=== PATIENT | male | born 1955 | race Caucasian/White ===

== ENCOUNTER → 2023-01-24 08:24 | Outpatient (CLI) | payer MEDICARE, SELFPAY ==
--- NOTE | 2023-01-24 | CA_ITS ---
APPROVED REPORT Exam: Exercise Treadmill Technologist: Kiana Linder, Ht: 5 ft 10 in Wt: 199 lbs BSA: 2.08 m2 HR: 52 bpm BP: 163/92 mmHg Rhythm: NSR Medical History Medications: Levothyroxine,,,,, Aspirin,,,,, Losartan,,,,, Allopurinol,,,,, GOUT MED,,,,, Stress Test Details Test: Manuel HR Resting HR: 56 bpm Max Heart Rate (APMHR): 155 bpm Max HR Achieved: 152 bpm Target HR (85% APMHR): 132 bpm % of APMHR: 98 Recovery HR: 93 bpm HR response to stress: Normal HR response to stress BP Resting BP: 154.0/85.0 mmHg Max BP: 188.0/74.0 mmHg Recovery BP: 156.0/69.0 mmHg BP response to stress: Normal blood pressure response to stress. ECG Resting ECG: Normal sinus rhythm Stress EC-[address] depression Arrhythmia: PAC, PVC Recovery ECG: Persistent ST depression at 5 minutes of recovery. Recovery Arrhythmia: PVC Clinical Exercise duration: 10:09 min Highest Stage Achieved: IV Exercise capacity: 12.8 METs Overall Exercise Capacity for Age: Average Stress ECG Conclusion Patient was able to exercise for a total of 10 minutes, 9 seconds. He achieved a total of 12.8 METS. He has an average exercise capacity compared to age and sex matched peers. He has a normal HR and BP response to exercise. Max HR: 152 % of PM: 98% Max BP: 188/74 METs: 12.8 Test stopped due to: Dyspnea Symptoms: Dyspnea Arrhythmias/Ectopy: PAC's, PVC's. ST-T Changes: 2-[address] depression. Conclusion: Average exercise capacity. ECG stress test consistent with ischemia. Myoview images are reported separately. Test Summary REST . . . . . . . Sitting REST . . . . . . . Standing REST 03:00 0.0 0.0 56 . 154/ 85 . . Stage 1 01:00 10.0 1.7 79 . . . . Stage 1 02:00 10.0 1.7 82 . 138/ 80 . . Stage 1 03:00 10.0 1.7 86 . 138/ 80 . . Stage 2 01:00 12.0 2.5 91 . . . . Stage 2 02:00 12.0 2.5 108 . 150/ 78 . . Stage 2 03:00 12.0 2.5 100 . 150/ 78 . . Stage 3 01:00 14.0 3.4 110 . . . . Stage 3 02:00 14.0 3.4 122 . 180/ 90 . . Stage 3 03:00 14.0 3.4 128 . 180/ 90 . . Stage 4 . . . . . . . Myoview Injected Stage 4 01:00 16.0 4.2 146 . . . . Stage 4 01:09 16.0 4.2 145 . . . Stop exercise at 10:09 RECOVERY 01:00 0.0 0.0 133 . . . . RECOVERY 02:00 0.0 0.0 119 . . . . RECOVERY 03:00 0.0 0.0 105 . 188/ 74 . . RECOVERY 04:00 0.0 0.0 98 . 188/ 74 . . RECOVERY 05:00 0.0 0.0 97 . 169/ 74 . . RECOVERY 05:44 0.0 0.0 96 . 156/ 69 . . Electronically signed by : Myrna Sorensen, 01/24/2023 19:13:58
--- NOTE | 2023-01-24 08:31 | NM_ITS ---
APPROVED REPORT Exam: Nuclear Stress Test Indication: CAD, 1 STENT, HTN, HYPERLIPIDEMIA, FM HX, C.P. Patient Location: Outpatient Stress Tech: Kiana Ramirez OR Tech:NICKOLAS Delgado RT (R)(N)(M) Ht: 5 ft 10 in Wt: 199 lbs HR: 83 bpm BP: 140/88 mmHg BSA: 2.08 m2 TID: 0.87 BMI: 28.5 History: CAD, 1 STENT, HTN, HYPERLIPIDEMIA, FM HX, C.P. PT DID COMPLAIN OF CHEST TIGHTNESS Procedure: Patient exercised on Manuel protocol 10:42 minutes and sec, resting heart rate 83 bpm, resting blood pressure 140/88 mmHg, with exercise maximum heart rate achived was 149 bpm which is 105 % of the maximum predicted heart rate and blood pressure was 198/90 mmHg. Test was stopped due to FATIGUE. Patient has Average exercise capacity, achieved 12.8 METs of workload on treadmill, the blood pressure response to exercise was normal. Cardiac Stress and Resting SPECT Images: Cardiac Stress and Resting SPECT images were obtained using technetium 99m Myoview 30.9 mCi stress and 9.16 mCi at rest. This is a technically difficult study due to body habitus and soft tissue overlying the cardiac borders. This may affect the diagnostic interpretation of the study findings. Resting and stress imaging in both supine and prone positions demonstrate a medium sized, moderate, fixed perfusion defect in the basal to mid inferior LV wall. There is also a small sized, moderate, fixed perfusion defect in the basal anterior LV wall. Gated imaging demonstrates normal global LV systolic function. There is mild hypokinesis of the inferior LV wall. LVEF is calculated at 57%. Conclusion: This is a technically difficult study due to body habitus and soft tissue overlying the cardiac borders. This may affect the diagnostic interpretation of the study findings. Medium sized, moderate, fixed perfusion defect in the basal to mid inferior LV wall. There is also a small sized, moderate, fixed perfusion defect in the basal anterior LV wall. No definite evidence of reversible ischemia. Gated imaging demonstrates normal global LV systolic function. There is mild hypokinesis of the inferior LV wall. LVEF is calculated at 57%. Electronically signed by : Myrna Sorensen, 01/24/2023 19:18:10
== END ==
LOC: RAD 08:25
PROVIDERS: PCP Family Medicine; Visit Provider Family Medicine
DX: R07.9 Chest pain, unspecified (principal); I25.10 Atherosclerotic heart disease of native coronary artery without angina pectoris
CPT/HCPCS: 78452; 93017; A9502

== ENCOUNTER 2023-02-15 07:12 | Outpatient (CLI) | payer MEDICARE, OTHER, SELFPAY ==
[2023-02-15 07:34] VITALS: BP 133/74; PULSE 56; RESP 17; TEMP 36.4; O2SAT 100; BMI 28.5
[2023-02-15 07:59] LABS: Blood Urea Nitrogen 15 mg/dl (9-20); Calcium 9.5 mg/dl (8.4-10.2); Carbon Dioxide 33 mmol/L (22.0-30.0); Chloride 100 mmol/L (98-107); Creatinine Clearance Estimated 85 mL/min (50-200); Estimated Glomerular Filt Rate 67 ml/min (>60); GFR (African American) 81 ML/MIN (>60); Glucose 104 mg/dl (74-100); Sodium 141 mmol/L (136-145)
[2023-02-15 08:18] VITALS: BP 119/70; PULSE 57; RESP 17; O2SAT 98
[2023-02-15 08:28] VITALS: BP 104/60; PULSE 53; RESP 17; O2SAT 97
[2023-02-15 08:32] VITALS: BP 115/64; PULSE 55; RESP 16; O2SAT 100
--- NOTE | 2023-02-15 09:15 | PC.NURSE ---
pt HR noted to drop to 36-[address] process. pt asymptomatic.
== END 2023-02-15 08:38 | disposition home or self-care (01) ==
LOC: RAD 07:13
PROVIDERS: PCP Family Medicine; Visit Provider Nurse Practitioner
DX: I10 Essential (primary) hypertension (principal); I45.2 Bifascicular block; R94.31 Abnormal electrocardiogram [ECG] [EKG]; R94.39 Abnormal result of other cardiovascular function study; Z87.891 Personal history of nicotine dependence; I20.8 Other forms of angina pectoris
CPT/HCPCS: 75574; 80048; Q9967

== ENCOUNTER → 2023-02-27 14:58 | Outpatient (CLI) | payer MEDICARE, OTHER, SELFPAY ==
--- NOTE | 2023-02-27 15:01 | CA_ITS ---
APPROVED REPORT EXAM: Comprehensive 2D, Doppler, and color-flow Echocardiogram Press Breaker: Jessica Fry RVT Ht: 5 ft 10 in Wt: 198lbs BSA: 2.08 BP: 116/67 mmHg Indications: ABN STRESS TEST,CAD,BRADYCARDIA,HTN,CP,EX SMOKER 2D Dimensions LVOT 2.22 cm (M/F) 1.5-2.5 LA Volume 36.20 mL LA Volume Index 17.40 mL/m2 (M/F) 16-34 M-Mode Dimensions RVDd 3.21 cm (0.9-2.6) LA Diam 3.46 cm (1.9-4.0) LVDd 4.79 cm (3.5-5.7) Ao Diam 3.22 cm (2.0-3.7) LVDs 3.27 cm (3.5-5.7) IVSd 0.68 cm (0.6-1.1) PWd 0.51 cm (0.6-1.1) EF (Teich) 59.60% FS 31.70% EDV (Teich) 107.00 mL ESV (Teich) 43.20 mL LV Diastology E Decel Time 257.00 (160-240 msec) E/A Ratio 0.9 MED E' 8.60 (< 7 cm/sec) E'/MED E' Ratio 6.52 (>14) LAT E' 8.90 (<10 cm/sec) E/LAT E' Ratio 6.30 (>14) Aortic Valve AO Peak GR. 2.70 mmHg Mitral Valve MV E Max Jag. 56.00 (40-130 cm/s) MV A Velocity 63.00 (40-130 cm/s) E/A Ratio 0.88 MV Decel. Time 257.00 (160-240 ms) MV PHT 75.00 ms Pulmonary Valve PV Peak Velocity 57.00 (50-150 cm/s) Tricuspid Valve TR P. Velocity 271.00 cm/s RAP Estimate 10.00 mmHg RVSP 39.50 mmHg Left Ventricle The left ventricle is normal size. The left ventricular systolic function is normal. The left ventricular ejection fraction is within the normal range. There is normal left ventricular wall thickness. There is mild hypokinesis of the inferior and inferolateral LV tijerina. The left ventricular diastolic function is normal. LVEF is 55% Right Ventricle The right ventricle is mildly to moderately dilated. The right ventricular systolic function is normal. Atria The left atrium size is normal. The right atrium size is normal. There is no Doppler evidence of interatrial shunt. Aortic Valve The aortic valve is normal in structure. There is no aortic valvular stenosis. Trace aortic regurgitation. Mitral Valve The mitral valve is normal in structure. No evidence of mitral valve stenosis. Trace mitral regurgitation. Tricuspid Valve The tricuspid valve leaflets are thin and pliable. Mild tricuspid regurgitation. RVSP is 20-25 mmHg. Pulmonic Valve The pulmonary valve is normal in structure. Trace pulmonic regurgitation. Great Vessels The aortic root is normal in size. The ascending aorta is normal in size. IVC is normal in size and collapses >50% with inspiration. Pericardium There is no pericardial effusion. Other Information Study Quality: Fair Conclusion Normal biventricular systolic function. Hypokinesis of the inferior and inferolateral LV tijerina. Mild to moderate RV dilation. Mild TR. Electronically signed by : Myrna Sorensen, 03/02/2023 22:32:08
== END ==
PROVIDERS: PCP Family Medicine; Visit Provider Nurse Practitioner
DX: I10 Essential (primary) hypertension (principal); I45.2 Bifascicular block; R94.31 Abnormal electrocardiogram [ECG] [EKG]; R94.39 Abnormal result of other cardiovascular function study; Z87.891 Personal history of nicotine dependence; I20.8 Other forms of angina pectoris
CPT/HCPCS: 93306

== ENCOUNTER 2023-03-13 09:02 | Day surgery (SDC) | payer MEDICARE, OTHER, SELFPAY ==
[2023-03-13] VITALS (15 sets, daily range): BP systolic 89–136; BP diastolic 51–78; PULSE 48–72; RESP 16–20; O2SAT 91–100; BMI 27.6
--- NOTE | 2023-03-13 07:24 | IR_ITS ---
APPROVED REPORT Patient Location: Outpatient PROCEDURES Selective coronary angiogram Drug-eluting stent deployment to the proximal and mid LAD Drug-eluting stent deployment to the proximal mid and distal right coronary artery in a contiguous manner INDICATION Coronary artery disease, Informed consent was obtained prior to the procedure. COMPLICATIONS NONE Estimated Blood Loss: LESS THAN 10 ML TECHNIQUE One percent lidocaine used to anesthetize the right anterior aspect of the wrist. The right radial artery was accessed via the Seldinger technique. A 6 [place] sheath was placed in the right radial artery. 2.5 mg of Verapamil, 800 mcg of nitroglycerin, 1mg Lidocaine and 5000 U Heparin were given through the arterial sheath. The papa catheter was also used to perform selective coronary angiography. At the end of the diagnostic angiogram therapeutic heparin was administered giving a therapeutic ACT and the guide catheter was placed in left main artery followed by Choice PT extra-support wire down the LAD. A 2.5 x 20 mm noncompliant balloon was deployed at 20 sruthi to predilate. Following this a 3 mm x 38 mm [place] frontier stent was deployed at 20 sruthi reducing the stenosis. A 3.5 x 12 mm noncompliant balloon was deployed at 20 and 24 sruthi up and down the LAD stent to post dilate. CINDY-3 flow was present before and after the procedure. At the end the procedure excellent angiograph results were obtained therefore the apparatus was removed and the sheath was used intubate the right coronary artery followed by the same wire placed distally in the right coronary. Predilatation was made using a 3 mm x 20 mm noncompliant balloon. This was deployed up and down the right coronary artery. Two 3 mm x 38 mm [place] frontier stent were placed in the proximal mid and distal segment in a contiguous manner at 20 and 24 sruthi. An additional 3 mm x 15 mm [place] frontier stent was placed distally to the second right coronary artery stent yet still overlapping it and deployed at 18 sruthi. The balloon was brought back and deployed at 24 sruthi up and on the stent to mesh all the stents in the right coronary artery in a contiguous manner. CINDY-3 flow was present before and after the procedure. Within the procedure the apparatus was removed the sheath was removed and hemostasis was achieved using TR banding patient was transferred to the postop putting in stable condition ANGIOGRAPHIC RESULTS The left main artery Normal The left anterior descending artery Has proximal and ostial eccentric 30% stenosis followed by an eccentric 50% stenosis between the first septal easement worker and first diagonal artery. The mid LAD then has calcified 80% stenoses followed by an additional mid vessel eccentric 40% stenosis. The circumflex artery Nondominant gives rise to a moderate-sized first obtuse marginal artery which has proximal and mid vessel calcified 40% stenoses The right coronary artery Is a dominant vessel and has a proximal calcified 70 to 80% stenosis with an additional proximal 80% stenosis in the mid vessel calcified concentric 90% stenosis followed by a distal eccentric 70% stenosis The BENDER ventriculogram reveals Not performed The left ventricular end-diastolic pressure Not measured IMPRESSION Severe to critical two-vessel coronary disease Successful stenting the proximal to mid LAD severe to critical disease reduced to 0% with 1 contiguous drug-eluting stent Successful stenting of the proximal mid and distal dominant right coronary severe to critical disease reduced to 0% with 3 contiguous drug-eluting stents PLAN 1. Plavix plus aspirin 2. LDL less than 55 but she with high intensity statin 3. Avoidance of tobacco product 4. Risk factor modification 5. Cardiac rehabilitation Electronically sig
[2023-03-13 09:32] LABS: Basophils % 0.6 % (0.1-2.0); Chloride 102 mmol/L (98-107); Eosinophils # 0.4 K/mm3 (0.0-0.4); Hematocrit 47.6 % (42.0-52.0); Hemoglobin 15.7 g/dL (14.1-18.0); Lymphocytes # 2.5 K/mm3 (0.7-4.5); Mean Corpuscular HGB Conc 33.1 g/dL (31.8-35.4); Mean Corpuscular Hemoglobin 30.6 pg (27.0-31.2); Mean Corpuscular Volume 92.7 fl (80-94); Mean Platelet Volume 10.2 fl (7.4-10.4); Monocytes # 0.7 K/mm3 (0.1-1.0); Neutrophils # 4.1 K/mm3 (1.8-7.8); Neutrophils % 53.4 % (37.0-80.0); Platelet Count 165 K/mm3 (142-424); Red Blood Count 5.14 M/mm3 (4.60-6.20); Red Cell Distribution Width 12.5 % (11.5-17.5); Sodium 141 mmol/L (136-145); White Blood Count 7.7 K/mm3 (4.8-10.8)
[2023-03-13 09:33] LABS: Potassium 3.9 mmoL/L (3.5-5.1)
[2023-03-13 09:35] LABS: Anion Gap 10.9 mEq/L (5-15); Blood Urea Nitrogen 16 mg/dl (9-20); Carbon Dioxide 32 mmol/L (22.0-30.0); Creatinine Clearance Estimated 91 mL/min (50-200); Estimated Glomerular Filt Rate 75 ml/min (>60); GFR (African American) 91 ML/MIN (>60)
[2023-03-13 09:36] LABS: Calcium 8.8 mg/dl (8.4-10.2); Glucose 107 mg/dl (74-100)
[2023-03-13 11:49] LABS: CATHL Activated Clotting Time 315 SEC (74-125)
--- NOTE | 2023-03-13 14:53 | P.CONPHA_ITS ---
PHA Instructional Material Director Discharge Med Double Head Machine Operator: Devang Marie has received discharge medication counseling on the following medications: ATORVASTATIN 80 MG HS ASPIRIN 81 MG DAILY LOSARTAN-HCTZ 50 MG/12.5 MG DAILY EFFIENT 10 MG DAILY MD NOT DOING BETA HOMERO AT THIS TIME DUE TO HEART RATE.
== END 2023-03-13 14:44 | disposition home or self-care (01) ==
PROVIDERS: PCP Family Medicine; Visit Provider Internal Medicine
DX: I10 Essential (primary) hypertension (principal); I25.118 Atherosclerotic heart disease of native coronary artery with other forms of angina pectoris; R93.1 Abnormal findings on diagnostic imaging of heart and coronary circulation; R94.31 Abnormal electrocardiogram [ECG] [EKG]; R94.39 Abnormal result of other cardiovascular function study; I45.2 Bifascicular block; Z87.891 Personal history of nicotine dependence; Z79.899 Other long term (current) drug therapy
CPT/HCPCS: 80048; 85025; 85347; 92928; 93454; 99152; 99153; C1725; C1769; C1874; C1876; C9600; J1644; Q9967

== ENCOUNTER → 2023-06-06 07:28 | Outpatient (CLI) | payer MEDICARE, OTHER, SELFPAY ==
--- NOTE | 2023-06-06 07:35 | XR_ITS ---
FINAL REPORT CLINICAL HISTORY: Foot Pain in heel x 1 month COMPARISON: None FINDINGS: LEFT FOOT Three views of the left foot demonstrate no acute fracture or dislocation. The visualized joint spaces are normally aligned. There is moderate hypertrophic change of osteoarthritis involving the first metatarsal phalangeal joint. A minimal plantar calcaneal spur is present. The soft tissues are unremarkable. IMPRESSION: Moderate changes of osteoarthritis in the first MTP joint. Minimal plantar calcaneal spur is present. Reviewed, Interpreted and Dictated by Jesse Sales MD Transcribed by Cathy Salinas Authenticated and . [facility]
--- NOTE | 2023-06-06 07:35 | XR_ITS ---
FINAL REPORT CLINICAL HISTORY: Foot Pain in heel x 1 month COMPARISON: None FINDINGS: RIGHT FOOT 3 views of the right foot were obtained. There is no acute fracture or dislocation. Visualized joint spaces are normally aligned. There is moderate hypertrophic change of osteoarthritis involving the first MTP joint. Minimal plantar calcaneal spurring is present. Soft tissues are unremarkable. IMPRESSION: Moderate hypertrophic change of osteoarthritis involving the first MTP joint. Minimal plantar calcaneal spurring is present. Reviewed, Interpreted and Dictated by Jesse Sales MD Transcribed by Cathy Salinas Authenticated and [facility]
== END ==
LOC: RAD 07:30
PROVIDERS: PCP Family Medicine; Visit Provider Podiatrist
DX: M79.672 Pain in left foot (principal); M79.671 Pain in right foot
CPT/HCPCS: 73630

== ENCOUNTER → 2023-06-06 09:43 | Outpatient (CLI) | payer MEDICARE, OTHER, SELFPAY ==
[2023-06-06 10:14] LABS: Basophils # 0.1 K/mm3 (0-0.2); Basophils % 0.6 % (0.1-2.0); Eosinophils # 0.4 K/mm3 (0.0-0.4); Eosinophils % 4.9 % (0.1-12.0); Hematocrit 44.8 % (42.0-52.0); Hemoglobin 15.4 g/dL (14.1-18.0); Lymphocytes # 3.1 K/mm3 (0.7-4.5); Lymphocytes % 41.7 % (10-50); Mean Corpuscular HGB Conc 34.4 g/dL (31.8-35.4); Mean Corpuscular Hemoglobin 32.1 pg (27.0-31.2); Mean Corpuscular Volume 93.4 fl (80-94); Mean Platelet Volume 8.9 fl (7.4-10.4); Monocytes # 0.4 K/mm3 (0.1-1.0); Monocytes % 4.8 % (1.7-9.3); Neutrophils # 3.5 K/mm3 (1.8-7.8); Platelet Count 182 K/mm3 (142-424); Red Cell Distribution Width 13.2 % (11.5-17.5); White Blood Count 7.3 K/mm3 (4.8-10.8)
[2023-06-06 10:37] LABS: Chloride 102 mmol/L (98-107)
[2023-06-06 10:38] LABS: Potassium 4.4 mmoL/L (3.5-5.1); Sodium 140 mmol/L (136-145)
[2023-06-06 10:39] LABS: Erythrocyte Sedimentation Rate 5 mm/hr (0-20)
[2023-06-06 10:40] LABS: Alanine Aminotransferase 45 U/L (12-78); Albumin Level 5.1 g/dl (3.5-5.0); Albumin/Globulin Ratio 1.6 (1.1-1.8); Alkaline Phosphatase 61 U/L (38-126); Anion Gap 12.4 mEq/L (5-15); Aspartate Amino Transferase 57 U/L (17-59); Blood Urea Nitrogen 14 mg/dl (9-20); Carbon Dioxide 30 mmol/L (22.0-30.0); Estimated Glomerular Filt Rate 75 ml/min (>60); GFR (African American) 91 ML/MIN (>60); Globulin 3.2 g/dL (1.3-3.2); Glucose 101 mg/dl (74-100); Total Protein,Serum 8.3 g/dl (6.3-8.2)
[2023-06-06 10:41] LABS: Calcium 9.4 mg/dl (8.4-10.2)
[2023-06-06 10:46] LABS: C-Reactive Protein 0.3 mg/L (0-4)
[2023-06-06 11:00] LABS: Uric Acid 4.9 mg/dl (3.5-8.5)
[2023-06-07 13:09] LABS: RA Latex Turbid. <10.0 IU/mL (<14.0)
[2023-06-13 09:24] LABS: Antinuclear Antibodies, IFA POSITIVE
== END ==
PROVIDERS: PCP Family Medicine; Visit Provider Podiatrist
DX: M79.671 Pain in right foot (principal); M79.672 Pain in left foot; R93.1 Abnormal findings on diagnostic imaging of heart and coronary circulation
CPT/HCPCS: 36415; 73630; 80053; 84550; 85025; 85651; 86038; 86140; 86431

== ENCOUNTER 2023-06-19 15:44 | Emergency (ER) | payer MEDICARE, OTHER, SELFPAY ==
[2023-06-19 16:30] VITALS: BP 145/73; PULSE 78; RESP 20; TEMP 37.8; O2SAT 97; BMI 28.7
[2023-06-19 16:56] VITALS: BP 145/73; PULSE 78; RESP 20; TEMP 37.8; O2SAT 97
--- NOTE | 2023-06-19 17:03 | EXP.UTC ---
Discharge Plan Disposition Patient Disposition: Home, Self-Care Condition: Good Prescriptions Prescriptions: New methylprednisolone [Medrol (Zackery)] 4 mg tablets,dose pack See Rx Instructions .Route .COMPLEX 6 Days Qty: 21 0RF Rx Instructions: taper pack; guaifenesin [Mucinex] 600 mg tablet extended release 12hr 1,200 mg PO BID PRN (Reason: cough) Qty: 20 0RF azithromycin [Zithromax Z-Zackery] 250 mg tablet See Rx Instructions .ROUTE .COMPLEX 5 Days Qty: 6 0RF Rx Instructions: For 250 mg dose pack: take 500 mg today (day 1), then 250 mg for 4 days (days 2-5) promethazine-DM 6.25-15 mg/5 mL syrup 5 ml PO Q6H PRN (Reason: cough) Qty: 118 0RF No Action probenecid-colchicine 500-0.5 mg tablet 1 tab PO DAILY allopurinol 100 mg tablet 100 mg PO DAILY levothyroxine 150 mcg tablet 150 mcg PO DAILY atorvastatin 80 mg tablet 80 mg PO DAILY Qty: 90 3RF prasugrel [Effient] 10 mg tablet 10 mg PO DAILY Qty: 90 3RF losartan-hydrochlorothiazide 50-12.5 mg tablet 1 tab PO DAILY Qty: 90 3RF amlodipine 5 mg tablet 5 mg PO DAILY Qty: 90 3RF aspirin 81 mg tablet,delayed release (DR/EC) 81 mg PO DAILY Qty: 90 3RF meloxicam 7.5 mg tablet 7.5 mg PO ONCE Qty: 30 2RF methylprednisolone [Medrol (Zackery)] 4 mg tablets,dose pack 4 mg PO DAILY Qty: 21 0RF diclofenac sodium [Voltaren Arthritis Pain] 1 % gel 4 g topical QID PRN (Reason: pain) Qty: 100 2RF Rx Instructions: apply to single knee, ankle, foot; for foot includes sole/toes/top of foot Referrals Follow up/Referrals: Elvin Rasmussen MD [Primary Care Provider] - See instructions Activity Restrictions/Add. Instructions Additional Instructions/Restrictions: Start antibiotic today. Be sure to complete entire prescription even if feeling better Monitor temp. Tylenol every 4 hours as needed and / or ibuprofen every 6 hours as needed ( As long as your primary care physician has told you that it ok to take both. For fever/aches/pains ER if no less than 101 despite Tylenol or Motrin Humidifier/vaporizer or hot steamy shower Mucinex during the day for your cough and cough suppressant only at night. Be sure to drink lots of water. Insurance may not cover a prescriptions for mucinex. Might be cheaper to get 400mg tablets and take 2 tablet in the morning, mid-day and evening with lots of water. *Promethazine DM cough syrup will cause drowsiness. Use only at night. No driving, operating machinery or caring for small children after taking it *Start steroid today. Helps with inflammation therefore, cough and wheezing. Follow directions on the package. Reviewed side effects. Patient reports taking them before. Follow up IMMEDIATELY for new or worsening of symptoms OR no noticeable improvement over the next 48-72 hours. 911 immediately for any life threatening symptoms such as chest pain or difficulty breathing Clinical Impressions Clinical Impression: Bronchitis Sinusitis Qualifiers: Sinusitis location: unspecified location Chronicity: unspecified Qualified Code(s): J32.9 - Chronic sinusitis, unspecified Instructions Patient Instructions: DI for Sinusitis, Acute Bronchitis Discharge ED Provider: Georgette Soni [facility] General Stated complaint: cough, SOA, congestion Mode of Arrival: Ambulatory Source of Information: Patient Limitations: No Limitations Time Seen by Provider: 06/19/23 17:03 Description of Symptoms (Recalled from Triage Doc. by RN): PATIENT C/O COUGH, HEADACHE, CHEST CONGESTION, SOA AND CHILLS X 1 WEEK HEENT Symptoms (Recalled from RN notes): Yes Resp Symptoms (Recalled from RN notes): Yes Skin Symptoms (Recalled from RN notes): No MS Symptoms (Recalled from RN notes): No Functional Status (Recalled from RN notes): WNL History of Present Illness Provider Complaint: Patient states that he has been sick for over a week States that he has been having cough, chest congestion, cough and at times coughing so much it makes him feel SOA, chills and sinus congestion/pressure States that today he was still not feeling any better States that he is not coughing anything up or anything just doesnt feel well Related Data Home Medications Medication Instructions Recorded Confirmed allopurinol 100 mg tablet 100 mg PO DAILY gout 02/02/23 06/06/23 levothyroxine 150 mcg tablet 150 mcg PO DAILY thyroid 02/02/23 06/06/23 probenecid 500 mg-colchicine 0.5 1 tab PO DAILY . 02/02/23 06/06/23 mg tablet Previous Rx's Medication Instructions Recorded amlodipine 5 mg tablet 5 mg PO DAILY . #90 tabs 03/20/23 aspirin 81 mg tablet,delayed 81 mg PO DAILY Blood Thinner #90 03/20/23 release tabs atorvastatin 80 mg tablet 80 mg PO DAILY . #90 tabs 03/20/23 losartan 50 mg-hydrochlorothiazide 1 tab PO DAILY blood pressure #90 03/20/23 12.5 mg tablet tabs prasugrel 10 mg tablet (Effient) 10 mg PO DAILY #90 tabs 03/20/23 diclofenac sodium 1 % topical gel 4 g topical QID PRN pain #100 grams 06/06/23 (Voltaren Arthritis Pain) meloxicam 7.5 mg tablet 7.5 mg PO ONCE pain #30 tabs 06/06/23 methylprednisolone 4 mg tablets in 4 mg PO DAILY #21 tabs 06/06/23 a dose pack (Medrol (Zackery)) azithromycin 250 mg tablet See Rx Instructions PO .COMPLEX 5 06/19/23 (Zithromax Z-Zackery) days #6 tabs guaifenesin 600 mg tablet, 1,200 mg PO BID PRN cough #20 tabs 06/19/23 extended release 12 hr (Mucinex) methylprednisolone 4 mg tablets in See Rx Instructions .Route 06/19/23 a dose pack (Medrol (Zackery)) .COMPLEX 6 days #21 tabs promethazine-DM 6.25 mg-15 mg/5 mL 5 ml PO Q6H PRN cough #118 mL 06/19/23 oral syrup Allergies Allergy/AdvReac Type Severity Reaction Status Date / Time No Known Allergies Allergy Verified 06/06/23 08:19 Worker's Comp Is this a Worker's Comp case?: No [facility] Disclaimer: The information contained in this section may have been updated after the patient was seen, as this information can be updated by other users. Medical History Abnormal computed tomography angiography of heart Hypertension Surgical History History of cardiac cath Family History Other Family history of acute congestive heart failure Family history of acute heart failure Social History Smoking Status: Never smoker alcohol intake: current substance use type: denies use current occupational status: employed Travel in the last 8 weeks: Inside the [place] ROS Obtained: Yes All systems reviewed & no additional complaints except as documented and Yes Systems reviewed as appropriate & no additional complaints except as documented Constitutional Constitutional: Reports system reviewed and no additional complaints, except as documented, Reports as per HPI, Reports body ache, Reports chills and Reports fever(s) ENT Ears, Nose, Mouth, and Throat: Reports system reviewed and no additional complaints, except as documented, Reports as per HPI, Reports nasal congestion and Reports sinus pressure Cardiovascular Cardiovascular: Reports system reviewed and no additional complaints, except as documented and Reports as per HPI Respiratory Respiratory: Reports system reviewed and no additional complaints, except as documented, Reports as per HPI, Reports shortness of breath (at times after coughing), Reports chest congestion and Reports cough Gastrointestinal Gastrointestingal: Reports system reviewed and no additional complaints, except as documented and as per HPI Musculoskeletal Musculoskeletal: Reports system reviewed and no additional complaints, except as documented and Reports as per HPI Physical Exam General General appearance: alert and in no apparent distress ENT ENT exam: Present mucous membranes moist Expanded ENT Exam Nose exam: Present sinus tenderness Throat exam: Present other (Pharyngeal erythema noted with PND) Respiratory Respiratory exam: Present normal lung sounds bilaterally; Absent respiratory distress or wheezes Cardiovascular Cardiovascular exam: Present regular rate, normal rhythm and normal heart sounds Abdominal Exam Abdominal exam: Present soft and normal bowel sounds; Absent distention or tenderness Neurological Exam Neurological exam: Present alert, oriented X3 and normal gait Medical Decision Making Jesus Inquiry Pt receiving controlled substance: No Jesus was queried for this patient: No Vital Signs: 06/19/23 16:30 06/19/23 16:56 Temperature 100.0 F H 100.0 F H Temperature Source Oral Pulse Rate 78 Pulse Rate [Left Brachial] 78 Respiratory Rate 20 20 Blood Pressure 145/73 H Blood Pressure [Left Arm] 145/73 H Blood Pressure Mean [Left Arm] 97 Blood Pressure Source [Left Arm] Automatic Cuff Blood Pressure Position [Left Arm] Sitting 02 Sat by Pulse Oximetry 97 Oxygen Delivery Method Room Air Lab Data Lab results reviewed: Yes I reviewed the patient's lab results.
[2023-06-19 17:04] LABS: UTC Influenza A Antigen Negative (Negative); UTC Influenza B Antigen Negative (Negative)
== END 2023-06-19 17:27 | disposition home or self-care (01) ==
PROVIDERS: Emergency Provider Nurse Practitioner; PCP Family Medicine
DX: J20.9 Acute bronchitis, unspecified (principal); J01.90 Acute sinusitis, unspecified; R06.02 Shortness of breath; R51.9 Headache, unspecified; R05.9 Cough, unspecified; R09.89 Other specified symptoms and signs involving the circulatory and respiratory systems; R50.9 Fever, unspecified; I10 Essential (primary) hypertension
CPT/HCPCS: 87804; 99204; 99212; G0463

== ENCOUNTER 2023-07-03 09:08 | Outpatient (CLI) | payer MEDICARE, OTHER, SELFPAY ==
[2023-07-03 09:22] LABS: Microscopic, Urine URINE MICROSCOPIC (MICROSCOPIC)
[2023-07-03 09:46] LABS: Basophils # 0.1 K/mm3 (0-0.2); Basophils % 0.7 % (0.1-2.0); Eosinophils # 0.2 K/mm3 (0.0-0.4); Eosinophils % 1.8 % (0.1-12.0); Hematocrit 48.6 % (42.0-52.0); Hemoglobin 16.5 g/dL (14.1-18.0); Lymphocytes # 3.3 K/mm3 (0.7-4.5); Mean Corpuscular HGB Conc 33.9 g/dL (31.8-35.4); Mean Corpuscular Hemoglobin 32.2 pg (27.0-31.2); Mean Corpuscular Volume 95.2 fl (80-94); Mean Platelet Volume 9.4 fl (7.4-10.4); Monocytes # 0.4 K/mm3 (0.1-1.0); Monocytes % 4.1 % (1.7-9.3); Neutrophils # 5.7 K/mm3 (1.8-7.8); Neutrophils % 59.5 % (37.0-80.0); Platelet Count 184 K/mm3 (142-424); Red Cell Distribution Width 13.5 % (11.5-17.5); White Blood Count 9.6 K/mm3 (4.8-10.8)
[2023-07-03 10:21] LABS: Alanine Aminotransferase 42 U/L (12-78); Albumin Level 4.5 g/dl (3.5-5.0); Albumin/Globulin Ratio 1.5 (1.1-1.8); Alkaline Phosphatase 68 U/L (38-126); Anion Gap 9.8 mEq/L (5-15); Aspartate Amino Transferase 42 U/L (17-59); Bilirubin,Total 1.3 mg/dl (0.2-1.3); Blood Urea Nitrogen 13 mg/dl (9-20); Calcium 8.9 mg/dl (8.4-10.2); Carbon Dioxide 31 mmol/L (22.0-30.0); Chloride 103 mmol/L (98-107); Estimated Glomerular Filt Rate 75 ml/min (>60); GFR (African American) 91 ML/MIN (>60); Glucose 92 mg/dl (74-100); Potassium 3.8 mmoL/L (3.5-5.1); Sodium 140 mmol/L (136-145); Total Protein,Serum 7.5 g/dl (6.3-8.2)
[2023-07-03 10:26] LABS: Erythrocyte Sedimentation Rate 12 mm/hr (0-20)
[2023-07-03 11:00] LABS: Appearance,Urine CLEAR (Clear); Bilirubin,Urine Negative (Negative); Blood, Urine Negative (Negative); Color,Urine YELLOW (Yellow); Glucose,Urine (UA) Negative (Negative); Ketones,Urine Negative (Negative); Leukocyte Esterase,Urine Negative (Negative); Nitrate,Urine Negative (Negative); PH,Urine 6.5 (5.0-8.5); Protein,Urine Negative (Negative); Specific Gravity, Urine 1.015 (1.005-1.030); Urobilinogen,Urine 0.2 EU/dl (0.2)
[2023-07-03 11:21] LABS: Squamous Epithelial Cell,Urine Occasional #/hpf (0-5); WBC,Urine Occasional #/hpf (0-3)
[2023-07-04 08:11] LABS: HBsAg Screen Negative (Negative); HCV Ab Non Reactive (Non Reactive); Hep A Ab, IGM Negative (Negative); Hep B Core Ab, IgM Negative (Negative)
[2023-07-04 08:14] LABS: Complement C3 126 mg/dL (82-167)
[2023-07-04 13:50] LABS: Anti-Centromere B Antibodies <0.2 AI (0.0-0.9); Anti-DNA (DS) Ab Qn 1 IU/mL (0-9); Anti-Jo-1 <0.2 AI (0.0-0.9); Anti-Smith Antibody <0.2 AI (0.0-0.9); Antichromatin Antibodies 0.2 AI (0.0-0.9); Antiscleroderma-70 Antibodies <0.2 AI (0.0-0.9); RNP Antibodies 0.2 AI (0.0-0.9); Sjogren's Anti-SS-A <0.2 AI (0.0-0.9); Sjogren's Anti-SS-B <0.2 AI (0.0-0.9)
[2023-07-04 20:54] LABS: dsDNA AB Crithidia Negative (Negative)
[2023-07-10 15:09] LABS: HLA-B27 Negative (.)
[2023-07-13 20:18] LABS: RF, IgA by EIA (RDL) < 7 U (<7); RF, IgG by EIA (RDL) < 7 U (<7); RF, IgM by EIA (RDL) < 7 U (<7)
== END 2023-07-03 23:59 ==
LOC: LAB 09:10
PROVIDERS: PCP Family Medicine; Visit Provider Internal Medicine Rheumatology
DX: M19.041 Primary osteoarthritis, right hand (principal); M10.9 Gout, unspecified; I25.10 Atherosclerotic heart disease of native coronary artery without angina pectoris; E89.0 Postprocedural hypothyroidism; E78.5 Hyperlipidemia, unspecified
CPT/HCPCS: 36415; 80053; 80074; 81001; 84550; 85025; 85651; 86161; 86225; 86235; 86431; 86812

== ENCOUNTER 2024-04-16 08:02 | Observation (INO) | payer MEDICARE, OTHER, SELFPAY ==
[2024-04-16] VITALS (26 sets, daily range): BP systolic 76–134; BP diastolic 42–73; PULSE 61–106; RESP 16–29; TEMP 36.3–37.1; O2SAT 91–100; BMI 39.2; BMI 28.7
--- NOTE | 2024-04-16 08:22 | ED_ITS ---
Discharge Plan Disposition Patient Disposition: Still a Patient Condition: Fair Prescriptions Prescriptions: No Action probenecid-colchicine 500-0.5 mg tablet 1 tab PO DAILY allopurinol 100 mg tablet 100 mg PO DAILY levothyroxine 150 mcg tablet 150 mcg PO DAILY aspirin 81 mg tablet,delayed release (DR/EC) 81 mg PO DAILY Qty: 90 3RF meloxicam 7.5 mg tablet See Rx Instructions .ROUTE .COMPLEX Qty: 30 3RF Dose Instruction: TAKE ONE TABLET BY MOUTH ONCE A DAY FOR PAIN Rx Instructions: TAKE ONE TABLET BY MOUTH ONCE A DAY FOR PAIN atorvastatin 80 mg tablet See Rx Instructions .ROUTE .COMPLEX Qty: 90 3RF Dose Instruction: TAKE ONE TABLET BY MOUTH ONCE A DAY Rx Instructions: TAKE ONE TABLET BY MOUTH ONCE A DAY amlodipine 5 mg tablet 5 mg PO DAILY Qty: 90 1RF losartan-hydrochlorothiazide 50-12.5 mg tablet 1 tab PO DAILY Qty: 90 3RF prasugrel [Effient] 10 mg tablet 10 mg PO DAILY Qty: 90 1RF guaifenesin [Mucinex] 600 mg tablet extended release 12hr 1,200 mg PO BID PRN (Reason: cough) Qty: 20 0RF Referrals Follow up/Referrals: Elvin Rasmussen MD [Primary Care Provider] - See instructions Print Language Print Language: Swedish Discharge ED Provider: Clyde Barbosa [facility] HPI General Stated complaint: abd pain Time Seen by Provider: 04/16/24 08:10 History of Present Illness Provider Complaint: He states that since last night he has had dark diarrhea stools and black vomit. He has had abdominal pain also. Related Data Home Medications ?Medication ?Instructions ?Recorded ?Confirmed allopurinol 100 mg tablet 100 mg PO DAILY gout 02/02/23 03/19/24 levothyroxine 150 mcg tablet 150 mcg PO DAILY thyroid 02/02/23 03/19/24 probenecid 500 mg-colchicine 0.5 1 tab PO DAILY . 02/02/23 03/19/24 mg tablet Previous Rx's ?Medication ?Instructions ?Recorded aspirin 81 mg tablet,delayed 81 mg PO DAILY Blood Thinner #90 03/20/23 release tabs guaifenesin 600 mg tablet, 1,200 mg (2 x 600 mg) PO BID PRN 06/19/23 extended release 12 hr (Mucinex) cough #20 tabs meloxicam 7.5 mg tablet See Rx Instructions .Route 12/19/23 .COMPLEX #30 tabs atorvastatin 80 mg tablet See Rx Instructions .Route 02/20/24 .COMPLEX #90 tabs amlodipine 5 mg tablet 5 mg PO DAILY . #90 tabs 02/27/24 losartan 50 mg-hydrochlorothiazide 1 tab PO DAILY blood pressure #90 03/14/24 12.5 mg tablet tabs prasugrel 10 mg tablet (Effient) 10 mg PO DAILY #90 tabs 04/15/24 Allergies Allergy/AdvReac Type Severity Reaction Status Date / Time No Known Allergies Allergy Verified 03/19/24 08:33 [facility] Disclaimer: The information contained in this section may have been updated after the patient was seen, as this information can be updated by other users. Medical History (Updated 03/19/24 @ 08:59 by Haley Sesay APRN) Ex-smoker History of gout Plantar fasciitis, bilateral Bifascicular block Coronary artery disease Hyperlipidemia Abnormal computed tomography angiography of heart Hypertension Surgical History History of cardiac cath Family History Other Family history of acute congestive heart failure Family history of acute heart failure Social History Smoking Status: Never smoker alcohol intake: current alcohol intake frequency: 3 or more drinks per day substance use type: denies use current occupational status: employed Travel in the last 8 weeks: Inside the [place] ROS Obtained: Yes All systems reviewed & no additional complaints except as documented Constitutional Constitutional: Denies chills and Denies fever(s) Eyes Eyes: Denies eye discharge ENT Ears, Nose, Mouth, and Throat: Denies dizziness, Denies otalgia and Denies sore throat Cardiovascular Cardiovascular: Denies chest pain Respiratory Respiratory: Denies shortness of breath, Denies chest congestion, Denies cough, Denies stridor and Denies wheezing Gastrointestinal Gastrointestingal: Reports as per HPI, abdominal pain, diarrhea, melena, nausea and vomiting Musculoskeletal Musculoskeletal: Reports system reviewed and no additional complaints, except as documented and Denies arthralgias Integumentary/Breasts Skin/Breast: Denies rash Neurologic Neurologic: Denies dizziness and Denies paresthesias Allergic/Immunologic Allergic/Immunologic: Denies wheezing Physical Exam General General appearance: alert and in no apparent distress Head Head exam: atraumatic, normocephalic and normal inspection Eye Eye exam: Present normal appearance, PERRL and EOMI ENT ENT exam: Present normal exam, normal oropharynx, mucous membranes moist, TM's normal bilaterally and normal external ear exam Neck Neck exam: Present normal inspection, full ROM and trachea midline; Absent meningismus or lymphadenopathy Chest Chest inspection: Present normal inspection and symmetric chest wall rise; Absent tenderness Respiratory Respiratory exam: Present normal lung sounds bilaterally; Absent respiratory distress Cardiovascular Cardiovascular exam: Present regular rate and normal rhythm; Absent JVD Abdominal Exam Abdominal exam: Present soft and hyperactive bowel sounds; Absent distention, tenderness or guarding Extremities Exam Extremities exam: Present normal inspection, full ROM and normal capillary refill; Absent calf tenderness Back Exam Back exam: Present normal inspection; Absent tenderness Neurological Exam Neurological exam: Present alert and oriented X3 Psychiatric Psychiatric exam: Present normal affect and normal mood Skin Skin exam: Present warm, dry, intact and normal color Lymphatic Lymphatic Findings: no adenopathy Medical Decision Making Medical Records Medical records reviewed: Yes I reviewed the patient's medical records. Screening: Per USPSTF and CDC recommendations, given the prevalence of disease in our region, it is our hospital?s policy to screen for HIV and viral Hepatitis for all patients aged 18 and over and those with ongoing risk factors. Jesus Inquiry Pt receiving controlled substance: No Medical Decision Narrative: he was transferred to the er due to low blood pressure and abdominal pain
--- NOTE | 2024-04-16 08:23 | PC.NURSE ---
PATIENT TRANSFERRED TO ER PER Wm LIGHT APRN AT THIS TIME. REPORT GIVEN TO Ayanna PETE RN AND DR. MCDONALD. PATIENT TRANSPORTED TO ER VIA WHEELCHAIR WITH [facility] STAFF ASSIST. AT BEDSIDE
--- NOTE | 2024-04-16 08:30 | PC.NURSE ---
Dr. Barbosa at BS for pt eval
[2024-04-16] MEDS: PANTOPRAZOLE 40MG VIAL 40 MG IV ×2 (08:44→20:10)
[2024-04-16] MEDS: ALUMINUM/MAGNESIUM/SIMETHICONE 30ML UDC 30 ML PO (08:45)
--- NOTE | 2024-04-16 08:46 | ECG_ITS ---
APPROVED REPORT Exam: Resting ECG HR:88 bpm ECG Measurements Heart Rate 88 AXES AR 178 P 81 QRSd 103 QRS 75 QT 381 T 66 QTc 427 Conclusion Sinus rhythm Electronically signed by : MAGDA MCDONALD, 04/16/2024 13:33:29
--- NOTE | 2024-04-16 08:47 | HMH.EDGENADL ---
Discharge Plan Disposition Patient Disposition: Admitted Condition: Fair Prescriptions Prescriptions: No Action probenecid-colchicine 500-0.5 mg tablet 1 tab PO DAILY allopurinol 100 mg tablet 100 mg PO DAILY levothyroxine 150 mcg tablet 150 mcg PO DAILY aspirin 81 mg tablet,delayed release (DR/EC) 81 mg PO DAILY Qty: 90 3RF meloxicam 7.5 mg tablet See Rx Instructions .ROUTE .COMPLEX Qty: 30 3RF Dose Instruction: TAKE ONE TABLET BY MOUTH ONCE A DAY FOR PAIN Rx Instructions: TAKE ONE TABLET BY MOUTH ONCE A DAY FOR PAIN atorvastatin 80 mg tablet See Rx Instructions .ROUTE .COMPLEX Qty: 90 3RF Dose Instruction: TAKE ONE TABLET BY MOUTH ONCE A DAY Rx Instructions: TAKE ONE TABLET BY MOUTH ONCE A DAY amlodipine 5 mg tablet 5 mg PO DAILY Qty: 90 1RF losartan-hydrochlorothiazide 50-12.5 mg tablet 1 tab PO DAILY Qty: 90 3RF prasugrel [Effient] 10 mg tablet 10 mg PO DAILY Qty: 90 1RF guaifenesin [Mucinex] 600 mg tablet extended release 12hr 1,200 mg PO BID PRN (Reason: cough) Qty: 20 0RF Clinical Impressions Clinical Impression: Gastrointestinal hemorrhage with hematemesis, Syncope, Melena Print Language Print Language: [place] Discharge ED Provider: Clyde Barbosa General Adult HPI General Chief complaint: Abdominal Pain Stated complaint: abd pain Time Seen by Provider: 04/16/24 08:10 Mode of Arrival: Ambulatory Source of Information: Patient Limitations: No Limitations Description of Symptoms (Recalled from ER Triage Doc. by RN): c/o abdomen pain with black diarrhea that started last night. States he has been spitting up the same black in color History of Present Illness HPI narrative: Please note that above description of symptoms, in this electronic medical record under categorization of recalled from ER triage doctor by RN are reflective of an initial nursing assessment, however, is not reflective of my full history and physical exam that was personally taken and clarified. Consequentially, this preceding description of symptoms, which may include the patient's categorized chief complaint in the EMR, do not reflect my personal clinical impression, and the ultimate description of history of present illness and patient stated complaints should be deferred to this section of the note. Unless stated otherwise or congruent with this section of the note, additional signs, symptoms, or incongruence should be interpreted as inaccurate with my clinical impression. Related Data Home Medications ?Medication ?Instructions ?Recorded ?Confirmed allopurinol 100 mg tablet 100 mg PO DAILY gout 02/02/23 03/19/24 levothyroxine 150 mcg tablet 150 mcg PO DAILY thyroid 02/02/23 03/19/24 probenecid 500 mg-colchicine 0.5 1 tab PO DAILY . 02/02/23 03/19/24 mg tablet Previous Rx's ?Medication ?Instructions ?Recorded aspirin 81 mg tablet,delayed 81 mg PO DAILY Blood Thinner #90 03/20/23 release tabs guaifenesin 600 mg tablet, 1,200 mg (2 x 600 mg) PO BID PRN 06/19/23 extended release 12 hr (Mucinex) cough #20 tabs meloxicam 7.5 mg tablet See Rx Instructions .Route 12/19/23 .COMPLEX #30 tabs atorvastatin 80 mg tablet See Rx Instructions .Route 02/20/24 .COMPLEX #90 tabs amlodipine 5 mg tablet 5 mg PO DAILY . #90 tabs 02/27/24 losartan 50 mg-hydrochlorothiazide 1 tab PO DAILY blood pressure #90 03/14/24 12.5 mg tablet tabs prasugrel 10 mg tablet (Effient) 10 mg PO DAILY #90 tabs 04/15/24 Allergies Allergy/AdvReac Type Severity Reaction Status Date / Time No Known Allergies Allergy Verified 03/19/24 08:33 [facility] Disclaimer: The information contained in this section may have been updated after the patient was seen, as this information can be updated by other users. Medical History (Updated 04/16/24 @ 10:15 by Clyde Barbosa MD) Ex-smoker History of gout Plantar fasciitis, bilateral Bifascicular block Coronary artery disease Hyperlipidemia Abnormal computed tomography angiography of heart Hypertension Surgical History History of cardiac cath Family History Other Family history of acute congestive heart failure Family history of acute heart failure Social History Smoking Status: Former smoker alcohol intake: current alcohol intake frequency: 3 or more drinks per day substance use type: denies use current occupational status: employed Travel in the last 8 weeks: Inside the [place] Other Medical History Have you received the Flu Vaccine for this season: No Have you received the Pneumonia Vaccine: No ROS Obtained: Yes All systems reviewed & no additional complaints except as documented Physical Exam General General appearance: alert and in no apparent distress Head Head exam: atraumatic and normocephalic Eye Eye exam: Present normal appearance, PERRL and EOMI Neck Neck exam: Present normal inspection, full ROM and trachea midline Respiratory Respiratory exam: Present normal lung sounds bilaterally; Absent respiratory distress, wheezes, stridor, accessory muscle use or prolonged expiratory phase Cardiovascular Cardiovascular exam: Present regular rate, normal rhythm and other (Pulses equal symmetric in upper and lower extremities) Abdominal Exam Abdominal exam: Present soft and tenderness; Absent distention, guarding, rebound, rigidity or pulsatile mass Abdominal tenderness: Present epigastrium and mild Extremities Exam Extremities exam: Absent edema Neurological Exam Neurological exam: Present alert, oriented X3 and CN II-XII intact; Absent motor sensory deficit Skin Skin exam: Present warm and dry; Absent diaphoresis or erythema Medical Decision Making Medical Records Medical records reviewed: Yes I reviewed the patient's medical records. Screening: Per USPSTF and CDC recommendations, given the prevalence of disease in our region, it is our hospital?s policy to screen for HIV and viral Hepatitis for all patients aged 18 and over and those with ongoing risk factors. Jesus Inquiry Pt receiving controlled substance: No Jesus was queried for this patient: No Vital Signs: 04/16/24 08:20 04/16/24 08:29 04/16/24 08:30 Temperature 98.3 F 97.6 F Temperature Source Oral Oral Pulse Rate 93 H Pulse Rate [Left Brachial] 61 Pulse Rate [Left Radial] 89 Respiratory Rate 20 18 19 Blood Pressure 103/65 L Blood Pressure [Left Arm] 76/42 L Blood Pressure [Right Arm] 111/56 L Blood Pressure Mean 71 Blood Pressure Mean [Left Arm] 53 Blood Pressure Mean [Right Arm] 74 Blood Pressure Source [Left Arm] Automatic Cuff Blood Pressure Source [Right Arm] Automatic Cuff Blood Pressure Position [Left Arm] Sitting Blood Pressure Position [Right Arm] Sitting 02 Sat by Pulse Oximetry 100 100 98 Oxygen Delivery Method Room Air Room Air Room Air 04/16/24 09:00 04/16/24 09:49 04/16/24 10:01 Temperature Temperature Source Pulse Rate 86 85 87 Pulse Rate [Left Brachial] Pulse Rate [Left Radial] Respiratory Rate 21 23 21 Blood Pressure 98/58 L 112/67 110/72 Blood Pressure [Left Arm] Blood Pressure [Right Arm] Blood Pressure Mean 70 83 91 Blood Pressure Mean [Left Arm] Blood Pressure Mean [Right Arm] Blood Pressure Source [Left Arm] Blood Pressure Source [Right Arm] Blood Pressure Position [Left Arm] Blood Pressure Position [Right Arm] 02 Sat by Pulse Oximetry 98 97 97 Oxygen Delivery Method Room Air Room Air Room Air Lab Data Lab Results 04/16/24 08:30: WBC 17.8 H, RBC 3.50 L, Hgb 11.1 L, Hct 33.9 L, MCV 97.0 H, MCH 31.8 H, MCHC 32.8, RDW 13.8, Plt Count 234, MPV 9.8, Neut % (Auto) 73.9, Lymph % (Auto) 21.3, [place] % (Auto) 3.9, Eos % (Auto) 0.3, Baso % (Auto) 0.6, Neut # (Auto) 13.2 H, Lymph # (Auto) 3.8, [place] # (Auto) 0.7, Eos # (Auto) 0.1, Baso # (Auto) 0.1, Total Counted 100, Neutrophils % (Manual) 77 H, Lymphocytes % (Manual) 22, Monocytes % (Manual) 1 L, Platelet Estimate Normal, RBC Morphology Normal, PT 12.5, INR 1.13 H, APTT 18.8 L, Sodium 142, Potassium 4.2, Chloride 106, Carbon Dioxide 26, Anion Gap 14.2, BUN 31 H, Creatinine 1.00, Estimated Creat Clear 93, Estimated GFR 75, Est GFR ( Amer) 90, Glucose 203 H, Calcium 8.8, Total Bilirubin 1.1, AST 44, ALT 41, Alkaline Phosphatase 43, Troponin I 0.03, Total Protein 6.7, Albumin 4.1, Globulin 2.6, Albumin/Globulin Ratio 1.6, Lipase 88 04/16/24 08:30 04/16/24 08:30 Orders (Tests/Meds): ED MEDICATIONS Generic Name Dose Route Start Last Admin Trade Name Freq PRN Reason Stop Dose Admin Lactated Ringer's 1,000 mls @ 999 mls/hr 04/16/24 09:45 04/16/24 09:55 Lactated Ringer's 1000 Ml Bag IV 04/16/24 10:45 999 mls/hr .Q1H1M ONE Administration Sodium Chloride 10 ml 04/16/24 08:35 Sodium Chloride 0.9% 10ml Flush Syringe IV 05/16/24 08:34 NEEDED PRN Maintain IV Site Sodium Chloride 10 ml 04/16/24 08:38 Sodium Chloride 0.9% 10ml Vial IV 05/16/24 08:37 NEEDED PRN dilute protonix Discontinued Medications Generic Name Dose Route Start Last Admin Trade Name Freq PRN Reason Stop Dose Admin Al Hydrox/Mg Hydrox/Simethicone 30 ml 04/16/24 08:38 04/16/24 08:45 Aluminum/Magnesium/Simethicone 30ml Udc PO 04/16/24 08:39 30 ml ONCE ONE Administration Ondansetron HCl 8 mg 04/16/24 09:54 04/16/24 09:54 Ondansetron 4mg/2ml Vial IV 04/16/24 09:55 8 mg ONCE ONE Administration Pantoprazole Sodium 40 mg 04/16/24 08:38 04/16/24 08:44 Pantoprazole 40mg Vial IV 04/16/24 08:39 40 mg ONCE ONE Administration ORDERS Category Date Time Status Type and Screen Stat BBK 04/16/24 09:[address] angio abdomen pelvis Stat Cat Scan 04/16/24 08:38 Ordered GI consult [Consult to Gastroenterology] [CONS] Routine Cons 04/16/24 09:54 Active POCUS Point of Care (ER Only) Stat Exams 04/16/24 08:38 Ordered CBC w/Auto Diff [Complete Blood Count Auto Diff] Stat Lab 04/16/24 08:30 Completed CMP [Comprehensive Metabolic Panel] Stat Lab 04/16/24 08:30 Completed HIV (1&2) Antibody Rapid Stat Lab 04/16/24 08:31 Ordered Hep C Ab with Reflex to RNA Stat Lab 04/16/24 08:31 Ordered Lipase Stat Lab 04/16/24 08:30 Completed PT INR [Prothrombin Time INR] Stat Lab 04/16/24 08:30 Completed PTT [Activated Partial Thrombo Time] Stat Lab 04/16/24 08:30 Completed Trop I [Troponin I] Stat Lab 04/16/24 08:30 Completed Troponin I Q3H Lab 04/16/24 11:45 Ordered Troponin I Q3H Lab 04/16/24 14:45 Ordered Medical Decision Narrative: 68-year-old male history of hypertension, CAD status post stenting x 4 presenting with epigastric pain, vomiting, dark stools. States that last night, 04/15, he ate the same food that his ate. Shortly thereafter started feeling unwell. Had vomiting that he says was real dark black, has had a couple of stools that are looser than usual, real dark black as well. Denies any iron supplements, sucralfate, any new medications. Associated with abdominal pain that started shortly thereafter that is epigastric, does not radiate, made better with sitting up and walking around, made worse with lying flat. When pain flares up, or nausea flares up, he gets clammy and diaphoretic. No syncope, chest pain, shortness of breath, daily drinking, any other relevant history. It to be noted the patient is on dual antiplatelet therapy with full dose prasugrel and daily aspirin, which is likely complicating care. History was obtained via conversation with patient as well as urgent care provider. On arrival, patient hemodynamically stable, alert, oriented x4, appropriate, GCS 15, moving all extremities spontaneously, pupils equal and reactive to light. Full physical exam performed and significant for very well-appearing male who is no acute distress. Abdomen soft, nondistended, minimally tender in epigastrium. No rebound, rigidity, or guarding. No flank tenderness. No overlying skin change. Cardiopulmonary exam within normal limits without murmurs gallops or rubs, no lower extremity edema. Pulses equal and symmetric. Differential includes PUD, gastritis, pancreatitis,. Patient placed on continuous cardiac monitoring and continuous pulse ox with initial blood pressure 103/65, heart rate 3, saturation 98% on room air. Independent interpretation of EKG shows sinus rhythm ventricular rate [address] or T wave changes concerning for acute ischemia. TN 178, QRS 103, QTc 427. Normal axis. Patient was given fluids, Protonix, Zofran for symptomatic management and correction of underlying abnormalities. Workup independently interpreted and significant for leukocytosis 17 with neutrophilia. Patient's hemoglobin dropped from greater than 16 to right around 11 since June 2023. BUN elevated. . Coags nonactionable. Initial troponin 0.03. Lipase negative. Type and pending. CT angiogram of the abdomen and pelvis was ordered. Just prior to scan being performed, patient had large volume dark hematemesis 1 to 2 units of blood. Was still in wheelchair, syncopized. Was brought to trauma bay, resuscitated. Gastroenterology was contacted and case was discussed at length, recommended continuing with what were doing, no immediate, emergent intervention, and admission and urgent scope.On reevaluation, patient states he feels better after vomiting and syncopized in, no acute complaints. Neurologically intact and remains hemodynamically stable with blood pressure 112/72, heart rate in the 90s, saturations 96 to 100% and breathing about 20-25 times a minute. Given patient presentation, workup, history, this most likely represents acute upper GI bleed. Patient's primary care provider was contacted and case was discussed at length, agreeable to admission. Because patient high risk for clinical decompensation, deemed appropriate for inpatient admission. Results were relayed to patient who voiced understanding and patient was agreeable to inpatient admission and management. Patient was admitted to the hospital for further definitive management. material flow analyst disclaimer Much of this encounter note is an electronic material flow analyst spoken language to printed text. Electronic material flow analyst of the spoken language may permit errors. Although I have reviewed the note, some errors may still exist. Critical Care Critical Care Time Critical Care Time: Yes (GI) Attestation: On 04/16/24, the high probability of a clinically significant, sudden or life threatening deterioration of the following system(s) required my full and direct attention, intervention and personal management. The time I documented below is in addition to time spent performing reported procedures but includes the following listed in this critical care notation. Total Time Total Critical Care Time: 45
[2024-04-16 08:49] LABS: Basophils # 0.1 K/mm3 (0-0.2); Basophils % 0.6 % (0.1-2.0); Eosinophils # 0.1 K/mm3 (0.0-0.4); Eosinophils % 0.3 % (0.1-12.0); Hematocrit 33.9 % (42.0-52.0); Hemoglobin 11.1 g/dL (14.1-18.0); Lymphocytes # 3.8 K/mm3 (0.7-4.5); Lymphocytes % 21.3 % (10-50); Mean Corpuscular HGB Conc 32.8 g/dL (31.8-35.4); Mean Corpuscular Hemoglobin 31.8 pg (27.0-31.2); Mean Platelet Volume 9.8 fl (7.4-10.4); Monocytes # 0.7 K/mm3 (0.1-1.0); Monocytes % 3.9 % (1.7-9.3); Neutrophils # 13.2 K/mm3 (1.8-7.8); Neutrophils % 73.9 % (37.0-80.0); Platelet Count 234 K/mm3 (142-424); Red Cell Distribution Width 13.8 % (11.5-17.5); White Blood Count 17.8 K/mm3 (4.8-10.8)
[2024-04-16 08:50] LABS: MANUAL DIFFERENTIAL MANUAL DIFFERENTIAL (MANUAL DIFF)
[2024-04-16 08:52] LABS: Albumin Level 4.1 g/dl (3.5-5.0); Chloride 106 mmol/L (98-107); Potassium 4.2 mmoL/L (3.5-5.1); Sodium 142 mmol/L (136-145)
[2024-04-16 08:55] LABS: Alanine Aminotransferase 41 U/L (12-78); Albumin/Globulin Ratio 1.6 (1.1-1.8); Alkaline Phosphatase 43 U/L (38-126); Anion Gap 14.2 mEq/L (5-15); Aspartate Amino Transferase 44 U/L (17-59); Bilirubin,Total 1.1 mg/dl (0.2-1.3); Blood Urea Nitrogen 31 mg/dl (9-20); Calcium 8.8 mg/dl (8.4-10.2); Carbon Dioxide 26 mmol/L (22.0-30.0); Creatinine Clearance Estimated 93 mL/min (50-200); Estimated Glomerular Filt Rate 75 ml/min (>60); GFR (African American) 90 ML/MIN (>60); Globulin 2.6 g/dL (1.3-3.2); Glucose 203 mg/dl (74-100); Lipase 88 U/L (23-300); Total Protein,Serum 6.7 g/dl (6.3-8.2)
--- NOTE | 2024-04-16 09:06 | PC.NURSE ---
stroke alert called
[2024-04-16 09:07] LABS: Troponin I 0.03 ng/ml (0.00-0.034)
[2024-04-16 09:10] LABS: INR 1.13 (0.9-1.1); Prothrombin Time 12.5 seconds (10.1-12.5)
[2024-04-16 09:27] LABS: Lymphocytes % 22 % (10-50); Monocytes % 1 % (2-9); Neutrophils % 77 % (42-76); Platelet Estimate Normal; RBC Morphology Normal; Total Cells Counted 100
[2024-04-16 09:29] LABS: Activated Partial Thrombo Time 18.8 seconds (22.8-30.6)
--- NOTE | 2024-04-16 09:53 | PC.NURSE ---
dr obrien speaking with dr miller
[2024-04-16] MEDS: ONDANSETRON 4MG/2ML VIAL 8 MG IV (09:54)
[2024-04-16] MEDS: LACTATED RINGERS 1000ML 1,000 ML 999 ML IV (09:55)
--- NOTE | 2024-04-16 09:58 | PC.NURSE ---
dr obrien speaking with dr harper
--- NOTE | 2024-04-16 10:04 | PC.NURSE ---
housekeeping laundry worker notified of admission
--- NOTE | 2024-04-16 10:24 | PC.NURSE ---
Dr. Dean at for pt evaluations
--- NOTE | 2024-04-16 10:38 | PC.NURSE ---
Report called to EMELINA Johnson on Med Surg. Family updated.
[2024-04-16] MEDS: ERYTHROMYCIN LACTOBIONATE 250 MG in 0.9 % SODIUM CHLORIDE 100 ML 100 MG IV (11:24)
--- NOTE | 2024-04-16 11:35 | HMH.PHAINT1 ---
Pharmacy Intervention Comments: MEDICATION RECONCILIATION COMPLETED ON PATIENT USING EXTERNAL FILL HISTORY FROM PHARMACY. -ZULEMA ARGUETA, JOYD
[2024-04-16 12:09] LABS: Hematocrit 29.6 % (42.0-52.0)
[2024-04-16 12:14] LABS: Hemoglobin 9.8 g/dL (14.1-18.0)
--- NOTE | 2024-04-16 12:18 | EXP.HP ---
History of Present Illness *Admission Date: 04/16/24 *Reason for visit:: vomiting blood and black stools *History of present illness: Mr. Wakefield is a 68-year-old male with a past history of coronary artery disease on Plavix and aspirin, arthritis, gout, hypothyroidism, hyperlipidemia, and hypertension who presented to [facility] emergency room for evaluation this a.m. due to black stools and abdominal discomfort. He initially went to the urgent treatment center because of a low blood pressure he was sent to the ER for further evaluation. There he was resuscitated with Ringer's lactate and given Zofran for nausea and started on Protonix drip. He states he has been feeling bloated but denied any previous abdominal discomfort. Last night 04/15/2024 he ate some food after which she started to feel unwell. He did vomit really dark black emesis and had a couple of stools that were looser than usual 0 they were out. They were also really dark black. He does not take any iron self supplements Sucre fright or any new medicines then he did experience some epigastric discomfort. Walking around sitting made it better. It was worse when he lay down flat. He also described clamminess and diaphoresis with the nausea. He did not have any chest pain shortness of breath. He noted that he drinks 3-4 beers every night. He is also on dual antiplatelet therapy with the Plavix and the aspirin. Initially he was stable he was noted to have a leukocytosis of 17,000 and a hemoglobin of 11 and which is noted to have dropped from 16 since June 2023. BUN was also elevated. Just prior to the scan being performed he had a large volume dark hematemesis of about 1 to 2 units of blood. He had a syncopal episode. He was resuscitated with the IV fluids. At this point gastroenterology was contacted and the scope was planned. He was then admitted for further definitive treatment. At the time of this visit patient is being prepared for his EGD. He is comfortable. He denies any nausea. He is not dizzy as long as he is lying down. He denies any abdominal pain. [facility] Disclaimer: The information contained in this section may have been updated after the patient was seen, as this information can be updated by other users. Medical History Ex-smoker History of gout Plantar fasciitis, bilateral Bifascicular block Coronary artery disease Hyperlipidemia Abnormal computed tomography angiography of heart Hypertension Surgical History History of thyroidectomy History of cardiac cath Family History Other Diabetes Family history of acute congestive heart failure Family history of acute heart failure Social History (Updated 04/16/24 @ 13:21 by Elizabeth Barragan RN) Smoking Status: Former smoker alcohol intake: current alcohol intake frequency: 3 or more drinks per day substance use type: denies use current occupational status: employed Travel in the last 8 weeks: Inside the [place] Other Medical History Have you received the Flu Vaccine for this season: No Have you received the Pneumonia Vaccine: No Review of Systems Constitutional Constitutional: Denies body ache(s), Denies fever(s), Denies frequent falls and Denies headache(s) Eyes Eyes: Denies change in vision ENT Ears, Nose, Mouth, and Throat: Reports dizziness, Denies otalgia, Denies headache(s), Denies hearing loss, Denies post nasal drip and Denies sore throat *Cardiovascular Cardiovascular: Denies chest pain and Denies dyspnea *Respiratory Respiratory: Denies chest congestion and Denies dyspnea *Gastrointestinal Gastrointestinal: Reports abdominal pain, Reports bloating, Reports change in stool character, Denies constipation, Reports diarrhea, Denies dyspepsia, Reports hematemesis, Reports hematochezia, Reports melena, Reports nausea and Reports vomiting *Genitourinary Genitourinary: Denies difficulty urinating *Musculoskeletal Musculoskeletal: Reports arthralgias (Arthritis) *Neurologic Neurologic: Denies convulsions, Reports dizziness, Denies frequent falls, Denies headache(s) and Denies paresthesias Meds Home Medications and Allergies Home Medications ?Medication ?Instructions ?Recorded ?Confirmed ?Type allopurinol 100 mg tablet 100 mg PO DAILY 02/02/23 04/16/24 History levothyroxine 150 mcg tablet 150 mcg PO DAILY 02/02/23 04/16/24 History probenecid 500 mg-colchicine 0.5 1 tab PO DAILY 02/02/23 04/16/24 History mg tablet losartan 50 mg-hydrochlorothiazide 1 tab PO DAILY blood pressure #90 03/14/24 04/16/24 Rx 12.5 mg tablet tabs prasugrel 10 mg tablet (Effient) 10 mg PO DAILY #90 tabs 04/15/24 04/16/24 Rx amlodipine 5 mg tablet 5 mg PO DAILY 04/16/24 04/16/24 History aspirin 81 mg tablet,delayed 81 mg PO DAILY 04/16/24 04/16/24 History release atorvastatin 80 mg tablet 80 mg PO DAILY 04/16/24 04/16/24 History meloxicam 7.5 mg tablet 7.5 mg PO DAILY 04/16/24 04/16/24 History New Prescriptions to Start Prescriptions: Allergies Allergy/AdvReac Type Severity Reaction Status Date / Time No Known Allergies Allergy Verified 03/19/24 08:33 Exam Data for Last 24 hours Vital signs and Labs for Last 24 Hours: Temp Pulse Resp BP Pulse Ox O2 Del Method 97.9 F 84 18 114/70 99 Room Air 04/16/24 10:43 04/16/24 10:43 04/16/24 10:43 04/16/24 10:43 04/16/24 10:30 04/16/24 10:43 Laboratory Results - last 24 hr 04/16/24 08:30: WBC 17.8 H, RBC 3.50 L, Hgb 11.1 L, Hct 33.9 L, MCV 97.0 H, MCH 31.8 H, MCHC 32.8, RDW 13.8, Plt Count 234, MPV 9.8, Neut % (Auto) 73.9, Lymph % (Auto) 21.3, [place] % (Auto) 3.9, Eos % (Auto) 0.3, Baso % (Auto) 0.6, Neut # (Auto) 13.2 H, Lymph # (Auto) 3.8, [place] # (Auto) 0.7, Eos # (Auto) 0.1, Baso # (Auto) 0.1, Total Counted 100, Neutrophils % (Manual) 77 H, Lymphocytes % (Manual) 22, Monocytes % (Manual) 1 L, Platelet Estimate Normal, RBC Morphology Normal, PT 12.5, INR 1.13 H, APTT 18.8 L, Sodium 142, Potassium 4.2, Chloride 106, Carbon Dioxide 26, Anion Gap 14.2, BUN 31 H, Creatinine 1.00, Estimated Creat Clear 93, Estimated GFR 75, Est GFR ( Amer) 90, Glucose 203 H, Calcium 8.8, Total Bilirubin 1.1, AST 44, ALT 41, Alkaline Phosphatase 43, Troponin I 0.03, Total Protein 6.7, Albumin 4.1, Globulin 2.6, Albumin/Globulin Ratio 1.6, Lipase 88 04/16/24 09:47: Blood Type A Negative, Antibody Screen Negative 04/16/24 12:00: Hgb 9.8 L D, Hct 29.6 L I & O for Last 24 hours: Intake & Output 04/14/24 04/15/24 04/16/24 04/17/24 11:59 11:59 11:59 11:59 Weight 200 lb Constitutional Constitutional: no acute distress Comments: Warm and dry. Color pale. Appears comfortable. Being prepped for EGD. *Routine HEENT Exam Head: Present normocephalic and atraumatic Eye: Present PERRL; Absent conjunctival icterus, scleral injection or conjunctivae pink ENT: Present mucous membranes moist and oropharynx clear *Routine Neck Exam Neck: Absent carotid bruit, lymphadenopathy or thyromegaly *Routine Respiratory Exam Respiratory: Present CTA bilaterally (Anteriorly and posteriorly) *Routine Cardiovascular Exam Cardiovascular: Present RRR *Routine Abdominal Exam Abdominal: Present soft and normoactive bowel sounds; Absent tenderness or guarding *Routine Rectal Exam Rectal:: deferred *Routine Genitalia Exam Genitalia:: deferred *Routine Extremities Exam Extremities: Present pulses intact; Absent edema or calf tenderness *Routine Neurological Exam Neurological: Present alert, oriented X3 and normal speech Assessment and Plan *Assessment and plan (1) Melena: Status: Acute Category: Medical Code(s): K92.1 - Melena (2) Syncope: Status: Acute Category: Medical Code(s): R55 - Syncope and collapse (3) Gastrointestinal hemorrhage with hematemesis: Status: Acute Category: Medical Code(s): K92.0 - Hematemesis (4) Hyperlipidemia: Status: Acute Qualifiers: Hyperlipidemia type: mixed hyperlipidemia Qualified Code(s): E78.2 - Mixed hyperlipidemia Category: Medical Code(s): E78.5 - Hyperlipidemia, unspecified (5) Arthritis involving multiple sites: Status: Acute Category: Medical Code(s): M12.9 - Arthropathy, unspecified (6) Coronary artery disease: Status: Acute Qualifiers: Associated angina: without angina Coronary Disease-Associated Artery/Lesion type: [place] artery [place] vs. 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 Dean at the present time. Further treatment as per the results of the procedure; will need to continue to monitor H&H results Dr. Rasmussen entry - Saw patient, agree with above note.
--- NOTE | 2024-04-16 12:21 | P.PNANES_ITS ---
[facility] Disclaimer: The information contained in this section may have been updated after the patient was seen, as this information can be updated by other users. Medical History Ex-smoker History of gout Plantar fasciitis, bilateral Bifascicular block Coronary artery disease Hyperlipidemia Abnormal computed tomography angiography of heart Hypertension Surgical History History of thyroidectomy History of cardiac cath Family History Other Diabetes Family history of acute congestive heart failure Family history of acute heart failure Social History Smoking Status: Former smoker alcohol intake: current alcohol intake frequency: 3 or more drinks per day substance use type: denies use current occupational status: employed Travel in the last 8 weeks: Inside the [place] [facility] Anesthesia Checklist Patient Identification Patient Identification: Arm Band and Verbal (Name & ) Structural Data Admitted From: Inpatient Planned Operative Procedure/s: EGD Consent for Planned Operative Procedure(s) Verified: Yes Verified Documents: Surgical Consent and History and Physical NPO Status Verified Time NPO: 00:00 Chart Verification Results Verified: CBC and BMP Additional verifications Anesthesia Reactions: No Hx Blood Transfusions: No Blood Transfusion Reaction: No Airway Assessment Mallampati Score:: Class IV C-Spine Mobility Assessed: Yes TMJ Mobility Assessed: Yes Dentition: Edentulous Neurological Assessment Level of Consciousness: Awake Hx Seizures: No Numbness or tingling in extremities: No Anesthesia Plan Anesthesia Risk discussed: Yes Anesthesia Plan: Verified ASA Class: III (E) Anesthesia Type: MAC
[2024-04-16 12:35] LABS: Troponin I 0.05 ng/ml (0.00-0.034)
--- NOTE | 2024-04-16 13:13 | P.PCN_ITS ---
[facility] Procedure Note Date: 04/16/24 Time: 13:13 Procedure Note:: Upper Endoscopy Procedure Report: Esophagogastroduodenoscopy with control of hemorrhage (submucosal epinephrine injection/gold probe ablation and Endo Clip placement) and cold biopsies Endoscopost: Yobani Dean II, MD Referring Physician: Elvin Rasmussen MD Date of Procedure: April 16, 2024 Equipment: Olympus GIF 190 standard upper endoscope Sedation: MAC sedation Indications: Mr. Marie is a 68-year-old gentleman who presented with 3 days of melanotic stool. The patient also had marked coffee-ground emesis today. The patient has had increasing lightheadedness/dyspnea on exertion. His bowel movements have been black. He has been on anticoagulation with Eliquis and baby aspirin. He also takes meloxicam daily. Just prior to the CT angiography, the patient had large-volume dark hematemesis and syncope. He was hypotensive. He was stabilized. Hemoglobin and hematocrit were 11.1 and 33.9. I had full discussion with the patient in the emergency department and the patient reported no abdominal pain. Procedure: Prior to the procedure, a history and physical exam was performed, and patient's medications and allergies were reviewed. The risks, benefits and alternatives of the sedation and procedure were discussed with the patient. All questions were answered and informed consent was obtained. The patient was brought to the procedure room. Patient identification and proposed procedure were verified by the physician and the nurse. The patient was placed in a left lateral decubitus position and the scope was passed under direct vision. Throughout the procedure, the patient's blood pressure, pulse, and oxygen saturations were monitored continuously. The upper GI endoscopy was accomplished without difficulty. The patient tolerated the procedure well. Findings: The scope was passed directly into the upper esophagus and advanced to the third portion of the duodenum. The post bulbar duodenum and duodenal bulb were normal with normal mucosa and conniventes. The scope was withdrawn through a normal duodenal bulb and pylorus into the stomach. Upon initial inspection of the stomach there was a marked amount of old blood and clot in the body and fundus of the stomach. There was more fresh heme seen in the antrum and this was cleared. There was an antral/prepyloric gastric ulcer that was approximately 12 to 13 mm in diameter with visible vessel in the base of the ulcer. I did then inject 1-10,000 epinephrine (2 to 3 mL) around the periphery of the ulcer with blanching. Next, the gold probe was utilized to ablate the visible vessel. Lastly, the Phonitive - Touchalizeis Endo Clip was utilized to close the ulcer entirely with a single Endo Clip. There is mild reactive gastropathy and mild chronic gastritis and biopsies were taken from the lesser curvature to rule out H. pylori. The body and fundus of the stomach were not well-visualized because of the amount of coffee-ground and thicker old clot. The scope was then withdrawn into the esophagus. There were no esophageal varices. There was no evidence of reflux esophagitis or Kemp's. The remainder of the esophageal mucosa was normal. Impression: 1. Antral/prepyloric gastric ulcer (12 to 13 mm) with visible vessel status post epinephrine injection/gold probe ablation of visible vessel and Endo Clip placement Plan: I strongly suspect NSAID ulceration with use of meloxicam. I would avoid NSAIDs (or [place] 2 inhibitors in the setting of even baby aspirin use). I will check biopsies for H. pylori. I would recommend oral PPI plus addition of meloxicam. I would continue clear liquids today and then advance diet in the a.m.
[2024-04-16 13:40] LABS: HIV (1&2) Antibody Rapid NONREACTIVE (NONREACTIVE)
--- NOTE | 2024-04-16 13:57 | PC.NURSE ---
Received patient from PACU via stretcher and staff. Patient awake / oriented x 4 able to voice needs to staff. Patient denies any pain or discomfort monitor set up, call light in reach, at bedside. No new c/o
[2024-04-16] MEDS: miSOPROStoL 200 MCG TABLET PO ×3 (14:33→23:10)
[2024-04-16 15:29] LABS: Troponin I 0.08 ng/ml (0.00-0.034)
--- NOTE | 2024-04-16 18:02 | PC.NURSE ---
Patient admitted to floor from ER after excessive vomiting of blood episode and diarrhea episode at home. Patient A/O able to voice needs to staff at bedside. Patient to EGD and was dx with active bleeding ulcer that was repaired with clip and cauterize. No further s/s of bleeding since returned from PACU. Patient remains A/O able to voice needs to staff. Reviewed POC and d/c goals pt v/u no new c/o
[2024-04-16 18:13] LABS: Hematocrit 27.7 % (42.0-52.0); Hemoglobin 9.3 g/dL (14.1-18.0)
[2024-04-17] VITALS (7 sets, daily range): BP systolic 93–149; BP diastolic 53–83; PULSE 58–80; RESP 16–24; TEMP 36.8–36.9; O2SAT 70–100; BMI 28.8
[2024-04-17] MEDS: miSOPROStoL 200 MCG TABLET PO ×2 (05:31→11:15)
[2024-04-17 06:56] LABS: Albumin Level 3.5 g/dl (3.5-5.0); Chloride 107 mmol/L (98-107); Potassium 3.7 mmoL/L (3.5-5.1); Sodium 139 mmol/L (136-145)
[2024-04-17 06:58] LABS: Basophils % 0.4 % (0.1-2.0); Eosinophils # 0.1 K/mm3 (0.0-0.4); Eosinophils % 0.4 % (0.1-12.0); Hematocrit 24.8 % (42.0-52.0); Hemoglobin 8.4 g/dL (14.1-18.0); Lymphocytes # 3.3 K/mm3 (0.7-4.5); Lymphocytes % 28.5 % (10-50); Mean Corpuscular HGB Conc 33.8 g/dL (31.8-35.4); Mean Corpuscular Hemoglobin 32.1 pg (27.0-31.2); Mean Corpuscular Volume 94.9 fl (80-94); Mean Platelet Volume 9.6 fl (7.4-10.4); Monocytes # 0.8 K/mm3 (0.1-1.0); Monocytes % 6.6 % (1.7-9.3); Neutrophils # 7.4 K/mm3 (1.8-7.8); Neutrophils % 64.1 % (37.0-80.0); Platelet Count 154 K/mm3 (142-424); Red Blood Count 2.62 M/mm3 (4.60-6.20); Red Cell Distribution Width 14.2 % (11.5-17.5); White Blood Count 11.5 K/mm3 (4.8-10.8)
[2024-04-17 06:59] LABS: Alanine Aminotransferase 31 U/L (12-78); Albumin/Globulin Ratio 1.7 (1.1-1.8); Alkaline Phosphatase 36 U/L (38-126); Anion Gap 12.7 mEq/L (5-15); Aspartate Amino Transferase 33 U/L (17-59); Bilirubin,Total 0.8 mg/dl (0.2-1.3); Blood Urea Nitrogen 29 mg/dl (9-20); Calcium 8.1 mg/dl (8.4-10.2); Carbon Dioxide 23 mmol/L (22.0-30.0); Creatinine Clearance Estimated 94 mL/min (50-200); Estimated Glomerular Filt Rate 75 ml/min (>60); GFR (African American) 90 ML/MIN (>60); Globulin 2.1 g/dL (1.3-3.2); Glucose 111 mg/dl (74-100); Total Protein,Serum 5.6 g/dl (6.3-8.2)
[2024-04-17 08:25] LABS: HCV Ab Non Reactive (Non Reactive)
--- NOTE | 2024-04-17 08:46 | EXP.ACUTE.PN ---
Subjective *Date: 04/17/24 *Time: 09:00 Interval history: Patient is feeling better this am. He has tolerated clear liquids. He had EGD yesterday and had an antral/prepyloric gastric ulcer (12 to 13 mm) with epinephrine injection and Endo Clip placement. Dr. Dean recommended no NSAIDS and starting an oral PPI. Medical Exam Vital signs and Labs for Last 24 Hours: Vital Signs Temp Pulse Pulse Resp BP BP Pulse Ox 04/17/24 06:00 68 22 136/63 98 04/17/24 04:28 98.3 F 80 22 110/62 99 04/17/24 04:00 60 04/17/24 04:00 98.3 F 04/17/24 04:00 58 L 24 93/53 L 97 04/17/24 02:00 69 22 101/53 L 93 L 04/17/24 00:00 75 04/17/24 00:00 70 22 98/65 L 70 L 04/16/24 22:00 84 21 111/66 91 L 04/16/24 20:22 98.7 F 98 H 27 H 124/73 97 04/16/24 20:00 106 H 04/16/24 20:00 105 H 29 H 125/69 98 04/16/24 18:00 102 H 18 119/69 99 04/16/24 17:00 04/16/24 16:45 87 16 105/65 L 99 04/16/24 16:00 70 04/16/24 15:45 73 16 96/55 L 99 04/16/24 15:15 72 16 108/56 L 99 04/16/24 15:00 04/16/24 14:45 70 16 110/60 99 04/16/24 14:30 63 16 104/58 L 98 04/16/24 14:15 97.7 F 84 16 104/59 L 100 04/16/24 14:00 69 16 102/59 L 100 04/16/24 13:45 97.4 F L 70 16 106/59 L 100 04/16/24 13:40 81 18 134/64 94 L 04/16/24 13:13 82 107/64 L 94 L 04/16/24 12:55 04/16/24 11:20 90 20 107/61 L 94 L 04/16/24 10:43 97.9 F 84 18 114/70 04/16/24 10:30 70 25 H 114/70 99 04/16/24 10:15 84 26 H 114/66 99 04/16/24 10:01 87 21 110/72 97 04/16/24 09:49 85 23 112/67 97 04/16/24 09:00 86 21 98/58 L 98 O2 Del Method O2 Flow Rate 04/17/24 06:00 Room Air 04/17/24 04:28 Room Air 04/17/24 04:00 04/17/24 04:00 04/17/24 04:00 Room Air 04/17/24 02:00 Room Air 04/17/24 00:00 04/17/24 00:00 Room Air 04/16/24 22:00 Room Air 04/16/24 20:22 Room Air 04/16/24 20:00 04/16/24 20:00 04/16/24 18:00 Room Air 04/16/24 17:00 Room Air 04/16/24 16:45 Room Air 04/16/24 16:00 04/16/24 15:45 Room Air 04/16/24 15:15 Room Air 04/16/24 15:00 Nasal Cannula 1 04/16/24 14:45 Nasal Cannula 04/16/24 14:30 Room Air 04/16/24 14:15 Room Air 04/16/24 14:00 Room Air 04/16/24 13:45 Room Air 04/16/24 13:40 Room Air 04/16/24 13:13 Room Air 04/16/24 12:55 Nasal Cannula 4 04/16/24 11:20 Room Air 04/16/24 10:43 Room Air 04/16/24 10:30 Room Air 04/16/24 10:15 Room Air 04/16/24 10:01 Room Air 04/16/24 09:49 Room Air 04/16/24 09:00 Room Air Intake and Output 04/16/24 04/17/24 04/17/24 19:59 03:59 11:59 Intake Total 600 / 600 Output Total 850 / 850 0 / 850 0 / 850 Balance -250 / -250 0 / -250 0 / -250 Intake: Intake, Oral Amount 600 / 600 Output: Output, Urine Amount 850 / 850 0 / 850 0 / 850 Other: Number of Unmeasured Voids 1 1 Number of Bowel Movements 1 Weight 201 lb Patient Weight 04/17/24 11:59 Weight 201 lb Laboratory Results - last 24 hr 04/16/24 08:30: WBC 17.8 H, RBC 3.50 L, Hgb 11.1 L, Hct 33.9 L, MCV 97.0 H, MCH 31.8 H, MCHC 32.8, RDW 13.8, Plt Count 234, MPV 9.8, Neut % (Auto) 73.9, Lymph % (Auto) 21.3, [place] % (Auto) 3.9, Eos % (Auto) 0.3, Baso % (Auto) 0.6, Neut # (Auto) 13.2 H, Lymph # (Auto) 3.8, [place] # (Auto) 0.7, Eos # (Auto) 0.1, Baso # (Auto) 0.1, Total Counted 100, Neutrophils % (Manual) 77 H, Lymphocytes % (Manual) 22, Monocytes % (Manual) 1 L, Platelet Estimate Normal, RBC Morphology Normal, PT 12.5, INR 1.13 H, APTT 18.8 L, Sodium 142, Potassium 4.2, Chloride 106, Carbon Dioxide 26, Anion Gap 14.2, BUN 31 H, Creatinine 1.00, Estimated Creat Clear 93, Estimated GFR 75, Est GFR ( Amer) 90, Glucose 203 H, Calcium 8.8, Total Bilirubin 1.1, AST 44, ALT 41, Alkaline Phosphatase 43, Troponin I 0.03, Total Protein 6.7, Albumin 4.1, Globulin 2.6, Albumin/Globulin Ratio 1.6, Lipase 88, Hepatitis C Antibody Non reactive, HIV 1&2 Antibody Rapid Nonreactive 04/16/24 09:47: Blood Type A Negative, Antibody Screen Negative 04/16/24 12:00: Hgb 9.8 L D, Hct 29.6 L, Troponin I 0.05 H 04/16/24 14:50: Troponin I 0.08 H 04/16/24 18:03: Hgb 9.3 L, Hct 27.7 L 04/17/24 05:55: WBC 11.5 H D, RBC 2.62 L D, Hgb 8.4 L, Hct 24.8 L, MCV 94.9 H, MCH 32.1 H, MCHC 33.8, RDW 14.2, Plt Count 154 D, MPV 9.6, Neut % (Auto) 64.1, Lymph % (Auto) 28.5, [place] % (Auto) 6.6, Eos % (Auto) 0.4, Baso % (Auto) 0.4, Neut # (Auto) 7.4, Lymph # (Auto) 3.3, [place] # (Auto) 0.8, Eos # (Auto) 0.1, Baso # (Auto) 0.0, Sodium 139, Potassium 3.7, Chloride 107, Carbon Dioxide 23, Anion Gap 12.7, BUN 29 H, Creatinine 1.00, Estimated Creat Clear 94, Estimated GFR 75, Est GFR ( Amer) 90, Glucose 111 H D, Calcium 8.1 L, Total Bilirubin 0.8, AST 33, ALT 31, Alkaline Phosphatase 36 L, Total Protein 5.6 L, Albumin 3.5 D, Globulin 2.1, Albumin/Globulin Ratio 1.7 I & O for Labs for Last 24 Hours: Intake & Output 04/14/24 04/15/24 04/16/24 04/17/24 11:59 11:59 11:59 11:59 Intake Total 600 / 600 Output Total 850 / 850 Balance -250 / -250 Weight 200 lb 201 lb Constitutional: Present no acute distress Respiratory: Present CTA bilaterally Cardiac: Present Reg Rate and Rhythm GI: Present soft; Absent distention or tenderness Extremities: Absent edema Skin: Present intact Neuro: Present alert, awake and oriented x 3 Assessment and Plan *Assessment and plan (1) Melena: Status: Acute Category: Medical Code(s): K92.1 - Melena (2) Syncope: Status: Acute Category: Medical Code(s): R55 - Syncope and collapse (3) Gastrointestinal hemorrhage with hematemesis: Status: Acute Category: Medical Code(s): K92.0 - Hematemesis (4) Hyperlipidemia: Status: Acute Qualifiers: Hyperlipidemia type: mixed hyperlipidemia Qualified Code(s): E78.2 - Mixed hyperlipidemia Category: Medical Code(s): E78.5 - Hyperlipidemia, unspecified (5) Arthritis involving multiple sites: Status: Acute Category: Medical Code(s): M12.9 - Arthropathy, unspecified (6) Coronary artery disease: Status: Acute Qualifiers: Associated angina: without angina Coronary Disease-Associated Artery/Lesion type: [place] artery [place] vs. 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 Can move out of step down and advance diet to full liquids. Will discuss further care with Dr. Rasmussen. Dr. Rasmussen entry - Saw patient, agree with above note.
[2024-04-17] MEDS: PANTOPRAZOLE 40MG VIAL 40 MG IV (08:48)
[2024-04-17] MEDS: SODIUM CHLORIDE 0.9% 10ML VIAL 10 ML IV (08:48)
--- NOTE | 2024-04-17 12:49 | P.PN_ITS ---
Subjective *Date: 04/17/24 *Time: 12:56 Interval history: Patient had small amount of black stool overnight. He reports no abdominal pain. Overall, feels better and tolerating liquids. No hematemesis Exam Data for Last 24 hours Vital signs and Labs for Last 24 Hours: Temp Pulse Resp BP Pulse Ox O2 Del Method O2 Flow Rate 98.5 F 74 18 105/54 L 100 Room Air 1 04/17/24 12:00 04/17/24 12:00 04/17/24 12:00 04/17/24 12:00 04/17/24 12:00 04/17/24 12:00 04/16/24 15:00 Laboratory Results - last 24 hr 04/16/24 08:30: Hepatitis C Antibody Non reactive, HIV 1&2 Antibody Rapid Nonreactive 04/16/24 14:50: Troponin I 0.08 H 04/16/24 18:03: Hgb 9.3 L, Hct 27.7 L 04/17/24 05:55: WBC 11.5 H D, RBC 2.62 L D, Hgb 8.4 L, Hct 24.8 L, MCV 94.9 H, MCH 32.1 H, MCHC 33.8, RDW 14.2, Plt Count 154 D, MPV 9.6, Neut % (Auto) 64.1, Lymph % (Auto) 28.5, [place] % (Auto) 6.6, Eos % (Auto) 0.4, Baso % (Auto) 0.4, Neut # (Auto) 7.4, Lymph # (Auto) 3.3, [place] # (Auto) 0.8, Eos # (Auto) 0.1, Baso # (Auto) 0.0, Sodium 139, Potassium 3.7, Chloride 107, Carbon Dioxide 23, Anion Gap 12.7, BUN 29 H, Creatinine 1.00, Estimated Creat Clear 94, Estimated GFR 75, Est GFR ( Amer) 90, Glucose 111 H D, Calcium 8.1 L, Total Bilirubin 0.8, AST 33, ALT 31, Alkaline Phosphatase 36 L, Total Protein 5.6 L, Albumin 3.5 D, Globulin 2.1, Albumin/Globulin Ratio 1.7 I & O for Last 24 hours: Intake & Output 04/14/24 04/15/24 04/16/24 04/17/24 23:59 23:59 23:59 23:59 Intake Total 600 / 600 270 / 270 Output Total 850 / 850 0 / 0 Balance -250 / -250 270 / 270 Weight 200 lb 201 lb Assessment and Plan *Assessment and plan (1) Gastric ulcer with hemorrhage: Status: Acute Category: Medical Code(s): K25.4 - Chronic or unspecified gastric ulcer with hemorrhage (2) Acute upper GI bleeding: Status: Acute Category: Medical Code(s): K92.2 - Gastrointestinal hemorrhage, unspecified Plan 1. Acute upper GI bleed from antral ulceration with visible vessel. Patient had EGD with epinephrine/ablation and Endo Clip. His hemoglobin hematocrit today were 8.4 and 24.8 (mildly declined) but he did receive hydration/hemodilution overnight until 6 AM. He has had marked reduction of dark stools but may still have melena for a couple of days. I would continue m isoprostol/Cytotec for 8 weeks. I would have him follow-up with me in 4 weeks. I will check biopsies for H. pylori. I would avoid meloxicam which is the culprit for NSAID ulcer. It may also be worthwhile for him to discuss anticoagulation. Most often patients will continue anticoagulation for at least 3 months post stent placement but the patient has now been on the anticoagulation for 1 year. I would like for him to discuss whether he needs to continue this with cardiology.
--- NOTE | 2024-04-19 13:41 | CARE MANAGER ---
Attempted to contact patient x2 related to hospital discharge. Left VM message. EMELINA Prince
--- NOTE | 2024-04-22 21:29 | P.DS_ITS ---
General Admission date:: 04/16/24 Discharge date: 04/17/24 HPI HPI HPI: Mr. Wakefield is a 68-year-old male with a past history of coronary artery disease on Plavix and aspirin, arthritis, gout, hypothyroidism, hyperlipidemia, and hypertension who presented to [facility] emergency room for evaluation this a.m. due to black stools and abdominal discomfort. He initially went to the urgent treatment center because of a low blood pressure he was sent to the ER for further evaluation. There he was resuscitated with Ringer's lactate and given Zofran for nausea and started on Protonix drip. He states he has been feeling bloated but denied any previous abdominal discomfort. Last night 04/15/2024 he ate some food after which she started to feel unwell. He did vomit really dark black emesis and had a couple of stools that were looser than usual 0 they were out. They were also really dark black. He does not take any iron self supplements Sucre fright or any new medicines then he did experience some epigastric discomfort. Walking around sitting made it better. It was worse when he lay down flat. He also described clamminess and diaphoresis with the nausea. He did not have any chest pain shortness of breath. He noted that he drinks 3-4 beers every night. He is also on dual antiplatelet therapy with the Plavix and the aspirin. Initially he was stable he was noted to have a leukocytosis of 17,000 and a hemoglobin of 11 and which is noted to have dropped from 16 since June 2023. BUN was also elevated. Just prior to the scan being performed he had a large volume dark hematemesis of about 1 to 2 units of blood. He had a syncopal episode. He was resuscitated with the IV fluids. At this point gastroenterology was contacted and the scope was planned. He was then admitted for further definitive treatment. At the time of this visit patient is being prepared for his EGD. He is comfortable. He denies any nausea. He is not dizzy as long as he is lying down. He denies any abdominal pain. Hospital Course Hospital Course Hospital Course: Patient was admitted and gastroenterology was consulted. Dr. Dean took him down for an EGD. He had an antral/prepyloric gastric ulcer with a visible vessel. He had an epinephrine injection/gold probe ablation of the visible vessel with Endo Clip placement. Dr. Dean suspected NSAID ulceration with the use of meloxicam and recommended to avoid NSAIDs. He took biopsies for H. pylori and recommended the patient be placed on a PPI, The patient did feel better and was able to tolerated diet. Dr. Dean recommended misoprostol/Cytotec for 8 weeks and he wanted to follow-up with him in his office in 4 weeks. Exam Data for Last 24 hours Vital signs and Labs for Last 24 Hours: Temp Pulse Resp BP Pulse Ox O2 Del Method O2 Flow Rate 98.5 F 74 18 105/54 L 100 Room Air 1 04/17/24 12:00 04/17/24 12:00 04/17/24 12:00 04/17/24 12:00 04/17/24 12:00 04/17/24 12:56 04/16/24 15:00 Narrative: Constitutional Constitutional: no acute distress Comments: Warm and dry. Color pale. Appears comfortable. Being prepped for EGD. *Routine HEENT Exam Head: Present normocephalic and atraumatic Eye: Present PERRL; Absent conjunctival icterus, scleral injection or conjunctivae pink ENT: Present mucous membranes moist and oropharynx clear *Routine Neck Exam Neck: Absent carotid bruit, lymphadenopathy or thyromegaly *Routine Respiratory Exam Respiratory: Present CTA bilaterally (Anteriorly and posteriorly) *Routine Cardiovascular Exam Cardiovascular: Present RRR *Routine Abdominal Exam Abdominal: Present soft and normoactive bowel sounds; Absent tenderness or guarding *Routine Rectal Exam Rectal:: deferred *Routine Genitalia Exam Genitalia:: deferred *Routine Extremities Exam Extremities: Present pulses intact; Absent edema or calf tenderness *Routine Neurological Exam Neurological: Present alert, oriented X3 and normal speech DS: Diagnosis Discharge Diagnosis (1) Gastric ulcer with hemorrhage: Status: Acute Code(s): K25.4 - Chronic or unspecified gastric ulcer with hemorrhage (2) Acute upper GI bleeding: Status: Acute Code(s): K92.2 - Gastrointestinal hemorrhage, unspecified Meds Home Medications and Allergies Home Medications ?Medication ?Instructions ?Recorded ?Confirmed ?Type allopurinol 100 mg tablet 100 mg PO DAILY 02/02/23 04/16/24 History levothyroxine 150 mcg tablet 150 mcg PO DAILY 02/02/23 04/16/24 History probenecid 500 mg-colchicine 0.5 1 tab PO DAILY 02/02/23 04/16/24 History mg tablet losartan 50 mg-hydrochlorothiazide 1 tab PO DAILY blood pressure #90 03/14/24 04/16/24 Rx 12.5 mg tablet tabs prasugrel 10 mg tablet (Effient) 10 mg PO DAILY #90 tabs 04/15/24 04/16/24 Rx amlodipine 5 mg tablet 5 mg PO DAILY 04/16/24 04/16/24 History atorvastatin 80 mg tablet 80 mg PO DAILY 04/16/24 04/16/24 History misoprostol 200 mcg tablet 200 mcg PO Q8H #90 tabs 04/17/24 Rx (Cytotec) pantoprazole 40 mg tablet,delayed 40 mg PO DAILY #30 tabs 04/17/24 Rx release (Protonix) bismuth subcit K 140 See Rx Instructions PO PER PKG DIR 04/18/24 Rx mg-metronidazole 125 #120 caps mg-tetracycline 125 mg cap (Pylera) New Prescriptions to Start Prescriptions: misoprostol [Cytotec] Elvin Rasmussen pantoprazole [Protonix] Elvin Rasmussen Allergies Allergy/AdvReac Type Severity Reaction Status Date / Time No Known Allergies Allergy Verified 03/19/24 08:33 Discharge Plan Disposition Patient Disposition: Home, Self-Care Condition: Fair Follow up Plan Follow up with: Elvin Rasmussen MD [Primary Care Provider] - 04/24/24 11:00 am Yobani Dean II, MD [Staff Physician] - 05/13/24 10:00 am Prescriptions/Medication Reconciliation: New misoprostol [Cytotec] 200 mcg tablet 200 mcg PO Q8H Qty: 90 1RF pantoprazole [Protonix] 40 mg tablet,delayed release (DR/EC) 40 mg PO DAILY Qty: 30 1RF Continued probenecid-colchicine 500-0.5 mg tablet 1 tab PO DAILY allopurinol 100 mg tablet 100 mg PO DAILY levothyroxine 150 mcg tablet 150 mcg PO DAILY losartan-hydrochlorothiazide 50-12.5 mg tablet 1 tab PO DAILY Qty: 90 3RF prasugrel [Effient] 10 mg tablet 10 mg PO DAILY Qty: 90 1RF atorvastatin 80 mg tablet 80 mg PO DAILY amlodipine 5 mg tablet 5 mg PO DAILY Discontinued aspirin 81 mg Tablet,Delayed Release (Dr/Ec) 81 mg PO DAILY meloxicam 7.5 mg tablet 7.5 mg PO DAILY No Action bismuth subcit [id number] [Pylera] 140-125-125 mg capsule See Rx Instructions PO PER PKG DIR Qty: 120 0RF Rx Instructions: Please take 3 capsules p.o. 4 times daily x 10 days Problem Reconciliation Problems Reviewed?: Yes Patient Discharge Instructions ACTIVITY: Continue current activity DIET: continue same diet Patient Instructions: DI for Gastrointestinal Bleeding Print Language: Danish Providers Primary Care Provider: Elvin Rasmussen Admit Provider: Elvin Rasmussen Attending Provider: Elvin Rasmussen
== END 2024-04-17 14:00 | disposition home or self-care (01) ==
LOC: UTC 08:17 → ER 08:24 → 2ND 10:12
PROVIDERS: Internal Medicine Gastroenterology; Admitting Provider Family Medicine; Emergency Provider Emergency Medicine; PCP Family Medicine; Visit Provider Family Medicine
PROC: 0DJ08ZZ Inspection of Upper Intestinal Tract, Via Natural or Artificial Opening Endoscopic (ICD-10-PCS; CPT 43235; principal; 2024-04-16 13:30)
DX: K25.4 Chronic or unspecified gastric ulcer with hemorrhage (principal); R55 Syncope and collapse; E78.2 Mixed hyperlipidemia; M12.9 Arthropathy, unspecified; I25.10 Atherosclerotic heart disease of native coronary artery without angina pectoris; D64.9 Anemia, unspecified; Z79.1 Long term (current) use of non-steroidal anti-inflammatories (NSAID); Z79.899 Other long term (current) drug therapy
CPT/HCPCS: 43239; 43255; 36415; 80053; 83690; 84484; 85007; 85014; 85018; 85025; 85027; 85610; 85730; 86803; 86850; 87389; 88305; 93005; 99291; C1760; G0378; J1364; J2405; J7120

== ENCOUNTER 2024-05-09 09:12 | Outpatient (CLI) | payer MEDICARE, OTHER, SELFPAY ==
--- OUTSIDE RECORDS SUMMARY | 2024-05-09 09:26 | XMS_ITS | Patient Health Record ---
Author Organization [facility] Address [address] [facility] [address] [place] [id number] Care Team Providers Care Emergency Response Officer Name Role Phone Elvin Rasmussen Primary Care Provider [phone] ALLERGIES No Known Allergies RESULTS Component Value Reference Range Notes CBC Fingerstick (in house) Reviewed date:04/24/2024 12:51:27 PM Interpretation: Performing Lab: Notes/Report: wbc 6.9 3.5 - 10 lym 44.8% 15 - 50 mid 8.7% 2 - 15 gran 46.5% 35 - 80 rbc 2.83 3.5 - 5.5 hgb 9.0 11.5 - 16.5 hct 26.7 35 - 55 mcv 94.2 75 - 100 mch 31.9 25 - 35 mchc 33.8 31 - 38 plat 249 100 - 400 H-CMP Reviewed date:04/17/2024 08:26:56 AM Interpretation: Performing Lab: Notes/Report: NA 139 136-145 mmol/L K 3.7 3.5-5.1 mmoL/L CL 107 98-107 mmol/L CO2 23 22.0-30.0 mmol/L GAP 12.7 5-15 mEq/L BUN 29 9-20 mg/dl CREATT 1.00 0.66-1.25 mg/dl CRCLE 94 50-200 mL/min GFRAA 90 >60 ML/MIN EGFR 75 >60 ml/min GLU 111 74-100 mg/dl Delta: 203 on 1 -829 CA 8.1 8.4-10.2 mg/dl BILIT 0.8 0.2-1.3 mg/dl AST 33 17-59 U/L ALT 31 12-78 U/L TP 5.6 6.3-8.2 g/dl ALB 3.5 3.5-5.0 g/dl Delta: 4.1 on 1 GLOB 2.1 1.3-3.2 g/dL AGRATIO 1.7 1.1-1.8 ALP 36 38-126 U/L H-CBC Reviewed date:04/17/2024 08:26:56 AM Interpretation: Performing Lab: Notes/Report: WBC 11.5 4.8-10.8 K/mm3 Delta: 17.8 o n 04/16/24 RBC 2.62 4.60-6.20 M/mm3 Delta: 3.50 on 04/16/24 HGB 8.4 14.1-18.0 g/dL HCT 24.8 42.0-52.0 % MCV 94.9 80-94 fl MCH 32.1 27.0-31.2 pg MCHC 33.8 31.8-35.4 g/dL RDW 14.2 11.5-17.5 % PLT 154 142-424 K/mm3 Delta: 234 on 04/16/24 MPV 9.6 7.4-10.4 fl NE% 64.1 37.0-80.0 % LY% 28.5 10-50 % MO% 6.6 1.7-9.3 % EO% 0.4 0.1-12.0 % BA% 0.4 0.1-2.0 % NE# 7.4 1.8-7.8 K/mm3 LY# 3.3 0.7-4.5 K/mm3 MO# 0.8 0.1-1.0 K/mm3 EO# 0.1 0.0-0.4 K/mm3 BA# 0.0 0-0.2 K/mm3 M-Hemoglobin and Hematocrit Reviewed date:04/17/2024 08:26:56 AM Interpretation: Performing Lab: Notes/Report: HGB 9.3 14.1-18.0 g/dL HCT 27.7 42.0-52.0 % P-Uric Acid Reviewed date:11/06/2023 09:38:51 AM Interpretation: Normal Performing Lab: Notes/Report: Test performed by [facility], [address] [place] [address] Jimmy Osorio MD, Eeg Technician CLIA: [id number] Uric Acid 3.8 3.4-8.0 mg/dL P-Lipid Panel Reviewed date:11/06/2023 09:38:51 AM Interpretation: Normal Performing Lab: Notes/Report: Test performed by [facility], [address] [place] [address] Jimmy Osorio MD, Eeg Technician CLIA: [id number] Cholesterol 110 <200 mg/dL Triglycerides 39 <150 mg/dL HDL Cholesterol 62 >39 mg/dL Cholesterol / HDL Ratio 1.77 0.00-4.99 Ratio Non-HDL Cholesterol 48 <130 mg/dL LDL Cholesterol (Calculation) 40 <130 mg/dL LDL Cholesterol Levels* Less than 100 mg/dL Optimal 100 to 129 mg/dL Near Optimal/ Above Optimal 130 to 159 mg/dL Borderline High 160 to 189 mg/dL High 190 mg/dL and above Very High * Categories as recommended by the 2004 ATPIII guidelines LDL/HDL Ratio 0.6 <3.3 Ratio LDL Cholesterol Patient History Test Date: 11/03/2023 LDL Results: 40 Units: mg/dL % Change: - P-Ferritin Reviewed date:11/06/2023 09:38:51 AM Interpretation: Normal Performing Lab: Notes/Report: Test performed by [facility] [address] [place] [address] , [address], [place] [address] Jimmy Osorio MD, Eeg Technician CLIA: [id number] Ferritin 306.0 30.0-400.0 ng/mL P-Basic Metabolic Panel (BMP ) Reviewed date:11/06/2023 09:38:51 AM Interpretation:gluc 105 Performing Lab: Notes/Report: Test performed by [facility] [address] [place] [address] , [address], [place] [address] Jimmy Osorio MD, Eeg Technician CLIA: [id number] Sodium 139 135-145 mEq/L Potassium 4.0 3.5-5.3 mEq/L Chloride 101 97-108 mEq/L CO2 27 22-32 mEq/L Glucose 105 65-99 mg/dL BUN 10 8-23 mg/dL Creatinine 0.97 0.70-1.30 mg/dL Calcium 9.5 8.6-10.4 mg/dL eGFR by Creatinine 86 >59 mL/min/1.73m2 REASON FOR REFERRAL Reason Please arrange at H Diagnosis 1 Heel pain, unspecifi ed laterality (M79.673) Referral Organization [facility] Referring Provider First Name Elvin Referring Provider Last Name Grady Referring Provider Speciality [facility] ctice Referred Provider Podiatry, ., Referred Provider Specialty Podiatry General Notes [facility] 05/23/20 9:38:40 AM > faxed referral, they will contact pt Referral Priority Routine MEDICATIONS Medication SIG (Take, Route, Frequency, Duration) Notes Start Date End Date Status Atorvastatin Calcium 80 MG 1 tablet Oral ly Once a day Active Allopurinol 100 MG 1 tab(s) orally once a day for 90 days Active Bismuth/Metronidaz/Tetracy clin 140-125-125 MG 3 capsules after meals and at bedtime Orally Four times a day for 10 day(s) Active Losartan Potassium-HCTZ 50-12.5 MG 1 tab(s) orally once a day Active Sildenafil Citrate 20 MG 1 tab(s) orally as needed for 30 days Not-Taking miSOPROStol 200 MCG 1 tablet Orally Four times a day for 30 day(s) Active Colchicine-Probenecid 0.5-500 MG 1 tab(s) orally once daily for 90 days Active Feosol Bifera 28 MG 1 tablet Orally Once a day for 30 day(s) 04/24/2024 Active Levothyroxine Sodium 150 MCG 1 tab(s) orally once a day for 30 days Active Pantoprazole Sodium 40 MG 1 tablet 1/2 t o 1 hour before morning meal Orally Once a day for 30 day(s) Active amLODIPine Besylate 5 MG 1 tablet Orally Once a day for 30 day(s) Active Prasugrel HCl 10 MG as directed Orally Active IMMUNIZATIONS Vaccine Route Administration Date Status Comme nts COVID 19 Moderna Unknown 10/07/2020 Administered COVID 19 Moderna Unknown 11/04/2020 Administered COVID 19 Moderna Unknown 06/16/2021 Administered Fluzone High Dose (65yr and older) IM Intramuscular 05/04/2023 Administered Fluzone Quad (6months&older) IM Intramuscular 04/23/2021 Administered Fluzone Quad (6months&older) IM Intramuscular 05/16/2022 Administered Prevnar (PCV20) IM Intramuscular 05/04/2023 Administered SOCIAL HISTORY Sex Assigned At : Social History Observation Description Sex Assigned At Unknown PROBLEMS Problem Type ICD Code Onset Dates Problem Status W/U Status Risk SNOMED Code Notes Problem Coronary artery dise ase involving [place] coronary artery of [place] heart without angina pectoris (I25.10) Active confirmed 862827051 Problem Anemia, unspecified type (D64.9) Active confirmed 185772743 Problem Hyperlipidemia, unspecified hyperlipidemia type (E78.5) Active confirmed 23625613 Problem Postoperative hypothyroidism (E89.0) Active confirmed 71769012 Problem Gastrointestinal hemorrhage associated with gastric ulcer (K25.4) Active confirmed 10772719 Problem Anemia due to GI blo od loss (D50.0) Active confirmed 012210362 Problem Atherosclerosis of [place] coronary artery without angina pectoris, unspecified whether [place] or transplanted heart (I25.10) Active confirmed 365304547 Problem Pure hypercholesterolemia (E78.00) Active confirmed 752596701 Problem Gastric ulcer, unspecified chronicity, unspecified whether gastric ulcer hemorrhage or perforation present (K25.9) Active confirmed 945792269 Problem PUD (peptic ulcer disease) (K27.9) Active confirmed 97384758 Problem Chronic gout of multiple sites, unspecified cause (M1A.09X0) Active confirmed 45502205 Problem Allergic rhinitis, unspecified seasonality, unspecified trigger (J30.9) Active confirmed 48138650 Problem Primary hypertension (I10) Active confirmed 12796488 VITAL SIGNS Heart Rate 69 /min 04/24/2024 Blood pressure diastolic 72 mm Hg 04/24/2024 Height 70 in 04/24/2024 Blood pressure systolic 118 mm Hg 04/24/2024 Weight 191.4 lbs 04/24/2024 BMI 27.46 kg/m2 04/24/2024 Encounters Encounter Location Date Provider Diagnosis [facility] [address] [place], [place] [id number] 05/22/2023 Elvin [employer] Heel pain, unspecifi ed laterality M79.673 [facility] [address] [place], [place] [id number] 06/02/2023 Elvin [employer] [facility] [address] [place], [place] [id number] 11/03/2023 Elvin [employer] Primary hypertension I10 ; Pure hypercholesterolemia E78.00 ; Elevated ferritin R79.89 ; Coronary artery disease involving [place] coronary artery of [place] heart without angina pectoris I25.10 ; Chronic gout of multiple sites, unspecified cause M1A.09X0 and Postoperative hypothyroidism E89.0 [facility] [address] [place], [place] [id number] 11/06/2023 Elvin [employer] [facility] [address] [place], [place] [id number] 04/22/2024 Elvin [employer] [facility] [address] [place], [place] [id number] 04/24/2024 Elvin [employer] Gastrointestinal hem orrhage associated with gastric ulcer K25.4 ; PUD (peptic ulcer disease) K27.9 ; Anemia due to GI blood loss D50.0 and H. pylori infection A04.8 [facility] [address] [place], [place] [id number] 04/26/2024 Elvin Rasmussen ASSESSMENTS Encounter Date Diagnosis Assessment Notes Treatment Notes Treatment Clinical Notes 05/22/2023 Heel pain, unspecifi ed laterality (ICD-10 - M79.673) 11/03/2023 Pure hypercholestero lemia (ICD-10 - E78.00) 11/03/2023 Primary hypertension (ICD-10 - I10) 04/24/2024 Gastrointestinal hemorrhage associated with gastric ulcer (ICD-10 - K25.4) Keep follow up appt. with Dr. Dean 04/24/2024 PUD (peptic ulcer di sease) (ICD-10 - K27.9) 11/03/2023 Elevated ferritin (I CD-10 - R79.89) 04/24/2024 Anemia due to GI blo od loss (ICD-10 - D50.0) 11/03/2023 Coronary artery dise ase involving [place] coronary artery of [place] heart without angina pectoris (ICD-10 - I25.10) 04/24/2024 H. pylori infection (ICD-10 - A04.8) 11/03/2023 Chronic gout of mult iple sites, unspecified cause (ICD-10 - M1A.09X0) 11/03/2023 Postoperative hypothyroidism (ICD-10 - E89.0) PLAN OF TREATMENT Next Appt Details Provider Name:Elvin Mckinley ry, 06/04/2024 10:15:00 AM, [address], [place], [place], [id number], Insurance Providers Payer Name Payer Address Payer Phone Subscriber Number Group Number Insured Name Patient Relationship to Insured Coverage Start Date Coverage End Date [employer] (MEDICAR E) [address] [address] [place] [phone] [id number] AIDEN MARIE Self - patient is the insured MEDICAL (GENERAL) HISTORY Medical History History ICD Code Coronary Artery Disease Arthritis Gout Hypothyroidism Hyperlipidemia Allergic Rhinitis Erectile dysfunction peptic ulcer disease, GI Bleed 03/2024, treated at [facility] H Pylori positive, 2023 Surgical History Surgery Date(Month/Year) [facility] 1985 Percutaneous coronary interv ention with 1 stent placed, [facility] [place] 2004 Percutaneous coronary intervention 4 renuka nts placed at [facility] 2022 EGD - treatment of bleeding stomach vu mireles, at [facility] 03/2024
--- OUTSIDE RECORDS SUMMARY | 2024-05-09 09:26 | XMS_ITS | Clinical Summary ---
Author Organization [facility] Address [address] [place] [address] Care Team Providers Care Flat Folder Name Role Phone Elvin Rasmussen MD Primary Care Provider [phone] Social History Tobacco Use Types Packs/Day Years Used Date Smoking Tobacco: Never Assessed Sex and Gender Information Value Date Recorded Sex Assigned at Not on file Legal Sex Male 7:39 PM EDT Gender Identity Not on file Sexual Orientation Not on file Plan of Treatment Health Maintenance Due Date Last Done Comments Dental Oral Exam 1957 Dental Prophylaxis 1957 Dental X-Ray: Bitewings 1957 Dental X-Ray: Full Mouth 1957 [facility]-Depression Screening 1957 [facility]-Hepatitis C Screening 1957 [facility]-Medicare Annual Wellness (AWV) 1957 [facility]-/Child/Adol SDOH Screenings 1957 [facility]- SDOH Screenings 11/09/1975 [facility]-Adult SDOH Screenings 11/09/1975 [facility]-DTaP,Tdap,and Td Vaccine s (1 - Tdap) 1976 CT Colonography 2002 Colonoscopy 2002 FIT-DNA 2002 FIT 2002 FOBT 2002 Sigmoidoscopy 2002 [facility]-Colorectal Cancer Screening 2002 [facility]-Zoster Vaccines (1 of 2) 11/09/2007 [facility]-Pneumococcal Vaccine: 65 + Years (1 of 1 - PCV) 2022 [id number] Vaccine (4 - 2024- season) 2024 06/16/2021, 11/04/2020, 10/07/2020 [facility]-Influenza Vaccine (#1) 2024 04/23/2021 [facility]-RSV Vaccine: 60+ Years o r (1 - 1-dose 75+ series) 2032 [facility]-HIB Vaccines Aged Out No longer e ligible based on patient's age to complete this topic [facility]-HPV Vaccines Aged Out No longer e ligible based on patient's age to complete this topic [facility]-Hepatitis A Vaccines Aged Out No longer eligible based on patient's age to complete this topic [facility]-IPV Vaccines Aged Out No longer e ligible based on patient's age to complete this topic [facility]-Rotavirus Vaccines Aged Out No lo nger eligible based on patient's age to complete this topic Insurance [facility] MEDICARE Care Teams Flat Folder Relationship Specialty Start Date End Date Elvin Rasmussen MD [address] [facility] [address] [place] [address] PCP - General 02/14/23
--- OUTSIDE RECORDS SUMMARY | 2024-05-09 09:26 | XMS_ITS ---
Author Organization [facility] Address [address] [facility] [address] [place] [id number] Care Team Providers Care Head Bucker Name Role Phone Elvin Rasmussen Primary Care Provider REASON FOR VISIT Message Encounters Encounter Location Date Provider Diagnosis [facility] [address] [facility] [address] [place] [id number] 04/22/2024 Elvin Rasmussen PLAN OF TREATMENT Next Appt Details Provider Name:Elvin Mckinley ry, 06/04/2024 10:15:00 AM, [address], [address], [place], [id number],
--- OUTSIDE RECORDS SUMMARY | 2024-05-09 09:26 | XMS_ITS | Encounter Summary ---
Author Organization [facility] Address [address] [place] [address] Care Team Providers Care Director Of Database Marketing Name Role Phone Elvin Rasmussen MD Primary Care Provider + [phone] Encounter Details Date Type Department Care Team (Latest Contact Info) Description 02/15/2023 9:35 AM EDT Ancillary Procedure [place] [id number] [place] [id number] Abnormal stress test Social History Tobacco Use Types Packs/Day Years Used Date Smoking Tobacco: Never Assessed Sex and Gender Information Value Date Recorded Sex Assigned at Not on file Legal Sex Male 7:39 PM EDT Gender Identity Not on file Sexual Orientation Not on file documented as of this encounter Plan of Treatment Not on file documented as of this encounter Procedures Procedure Name Priority Date/Time Associated Diagnosis Comments CT ANGIO CARDIAC CORONARY ARTERIES Routine 02/15/2023 9:30 AM EDT Abnormal stress test documented in this encounter Results * CT Angio Cardiac Coronary Arteries (02/15/2023 9:30 AM EDT) Anatomical Region Laterality Modality Heart Computed Tomogra phy Impressions 02/15/2023 10:43 AM EDT 1. Severe coronary calcification with an Agatston score = 3600 using the AJ-130 method, which represents 99 percentile when matched for age, gender and ethnicity. ??Vascular age is 89 years. 2. Multivessel coronary artery disease 3. CAD-RADS 5: Management recommendations: ??Consider further evaluation with invasive coronary angiography and revascularization as appropriate. Recommendation for anti-ischemic and preventative management should be considered as well as risk factor modification. 4. ??No significant non coronary cardiac findings in particular normal cardiac chambers, non-coronary vessels in the field of view and unremarkable pericardium. 5. ??Extracardiac structures in the field of view are unremarkable. CRITICAL RESULT: No. COMMUNICATION: Per this written report. Drafted by David Howard MD on 02/15/2023 10:15 AM Final report signed by David Howard MD on 02/15/2023 10:43 AM Narrative 02/15/2023 10:43 AM EDT CLINICAL INDICATION: 67 years Male Symptoms: abnormal stress TECHNIQUE: Procedure Data Image Acquisition: A 128-slice MDCT scanner ([employer] X[employer]) was used for data acquisition. A non-contrast coronary calcium scan was initially performed. was performed. Bolus tracking in the ascending aorta with a threshold of 180HU. Immediately afterwards, ECG synchronized Cardiac CT was then performed from cardiac base to apex using retrospective gating with ECG tube current modulation. A total of 85 mL Isovue 370mg/mL contrast media was administered at 5 mL/sec followed by a saline flush using a biphasic injection protocol. ??A tube voltage of 120 kVp was used. ?? The patient received the following medications prior to the Cardiac CT: None The average heart rate at the time of acquisition was 46 bpm (40 bpm to 53 bpm) and mildly irregular. Image Reconstruction: Transaxial images were reconstructed at 0.63 mm slice thickness. ??Data was reviewed interactively on an advanced workstation (QuantHouse) capable of 2 and 3 dimensional displays in all conventional reconstruction formats including multiplanar reformations, maximum intensity projections, curved multiplanar reformations, and volume rendered reconstructions. Selected routine images displaying relevant coronary anatomy and pathology were saved and sent to PACS. Complications: None Technical Quality: Overall image quality is Suboptimal. Coronary artery opacification is Adequate Total DLP (Dose-Length Product): 2216.7mGycm. (31 mSv) Please note: The reported value represents the total of one or more individual components during the CT acquisition on this date and at this time, and as such, the same value may appear in more than one CT report depending on the interpreting/reporting physicians. COMPARISON: None. FINDINGS: -CT Coronary Calcium Scoring- LAD= 1491 LCX= 856 RCA= 1253 Total calcium score = 3600 using the AJ-130 method. This score is in the 99 percentile rank for age and gender, meaning that 1 % of patients of the same age and gender will have a higher score. The total volume score is 2951. The calculated vascular age for this patient is 89 years. There is calcification in the aortic wall. -Coronary CT Angiography- Coronary Arteries: The LAD and LCx have separate ostia, and no left main. The coronary arterial system is right ??dominant. Note: Stenosis is reported as maximum percentage diameter stenosis. Stenosis grading is reported using the following scheme. Quantitative Stenosis Grading: CAD-RADS 0: 0% - No visible stenosis CAD-RADS 1: 1-24% - Minimal stenosis CAD-RADS 2: 25-49% - Mild stenosis CAD-RADS 3: 50-69% - Moderate stenosis CAD-RADS 4A: 70-99% - Severe stenosis in 1-2 vessels CAD-RADS 4B: Left main >50%, or 3 vessel >70% CAD-RADS 5: 100% - Occluded LAD and Diagonals: CAD-RADS 4A. Large vessel gives off a high first diagonal, and a second diagonal before wrapping the apex. ??There is diffuse severe coronary calcification with possible severe stenosis at the branch point prior to the second diagonal LCx and Obtuse Marginals: CAD-RADS 3 Medium sized vessel giving off a high OM branch, and terminates as a PL. ??There is diffuse severe coronary calcification of the OM with likely diffuse moderate stenosis in the proximal to mid segments. RCA: CAD-RADS 5 Large dominant vessel that gives off a PDA and PL branch. ??There is diffuse coronary calcification. ??There appears to be a severe stenosis in the proximal segment prior to a stent. ??The stent appears to be occluded in the distal portion (vs. beam hardening artifact), with contrast filling distal to the stent, PDA/PL. ??There is moderate stenosis in the distal segment, as well as calcified plaque in the prox/mid PDA that is too small to evaluate. Non Coronary Cardiac Findings: Normal cardiac chamber size. No pericardial thickening or calcification. Normal interatrial and interventricular septum, atrioventricular valves, ventriculo-arterial valves, pulmonary veins and imaged central veins. Central and branch pulmonary arteries in the field of view are unremarkable. Thoracic aorta and imaged thoracic aortic branches in the field of view are unremarkable. The left ventricular systolic function is visually normal. Extra Cardiac Structures: Within the focused field of view, evaluation of the visualized thoracic and upper abdominal structures demonstrates no additional abnormalities; specifically normal appearances of the lung parenchyma, mediastinum, pleura, chest wall, esophagus, spleen, stomach and colon. Procedure Note David Howard MD - 02/15/2023 CLINICAL INDICATION: 67 years Male Symptoms: abnormal stress TECHNIQUE: Procedure Data Image Acquisition: A 128-slice MDCT scanner ([employer] View) was used for dataacquisition. A non-contrast coronary calcium scan was initially performed.was performed. Bolus tracking in the ascending aorta with a threshold [id number]. Immediately afterwards, ECG synchronized Cardiac CT was thenperformed from cardiac base to apex using retrospective gating with ECGtube current modulation. A total of 85 mL Isovue 370mg/mL contrast mediawas administered at 5 mL/sec followed by a saline flush using a biphasicinjection protocol. A tube voltage of 120 kVp was used. The patient received the following medications prior to the Cardiac CT:None The average heart rate at the time of acquisition was 46 bpm (40 bpm to 53bpm) and mildly irregular. Image Reconstruction: Transaxial images were reconstructed at 0.63 mm slice thickness. Data wasreviewed interactively on an advanced workstation (QuantHouse) capable of 2and 3 dimensional displays in all conventional reconstruction formatsincluding multiplanar reformations, maximum intensity projections, curvedmultiplanar reformations, and volume rendered reconstructions. Selectedroutine images displaying relevant coronary anatomy and pathology weresaved and sent to PACS. Complications: None Technical Quality: Overall image quality is Suboptimal. Coronary artery opacification is Adequate Total DLP (Dose-Length Product): 2216.7mGycm. (31 mSv) Please note: Thereported value represents the total of one or more individual componentsduring the CT acquisition on this date and at this time, and as such, thesame value may appear in more than one CT report depending on theinterpreting/reporting physicians. COMPARISON: None. FINDINGS: -CT Coronary Calcium Scoring- LAD= 1491 LCX= 856 RCA= 1253 Total calcium score = 3600 using the AJ-130 method. This score is in the99 percentile rank for age and gender, meaning that 1 % of patients of thesame age and gender will have a higher score. The total volume score [id number]. The calculated vascular age for this patient is 89 years. There is calcification in the aortic wall. -Coronary CT Angiography- Coronary Arteries: The LAD and LCx have separate ostia, and no left main. The coronaryarterial system is right dominant. Note: Stenosis is reported as maximum percentage diameter stenosis.Stenosis grading is reported using the following scheme. Quantitative Stenosis Grading: CAD-RADS 0: 0% - No visible stenosis CAD-RADS 1: 1-24% - Minimal stenosis CAD-RADS 2: 25-49% - Mild stenosis CAD-RADS 3: 50-69% - Moderate stenosis CAD-RADS 4A: 70-99% - Severe stenosis in 1-2 vessels CAD-RADS 4B: Left main >50%, or 3 vessel >70% CAD-RADS 5: 100% - Occluded LAD and Diagonals: CAD-RADS 4A. Large vessel gives off a high firstdiagonal, and a second diagonal before wrapping the apex. There isdiffuse severe coronary calcification with possible severe stenosis at thebranch point prior to the second diagonal LCx and Obtuse Marginals: CAD-RADS 3 Medium sized vessel giving off a highOM branch, and terminates as a PL. There is diffuse severe coronarycalcification of the OM with likely diffuse moderate stenosis in theproximal to mid segments. RCA: CAD-RADS 5 Large dominant vessel that gives off a PDA and PL branch.There is diffuse coronary calcification. There appears to be a severestenosis in the proximal segment prior to a stent. The stent appears eda occluded in the distal portion (vs. beam hardening artifact), withcontrast filling distal to the stent, PDA/PL. There is moderate stenosisin the distal segment, as well as calcified plaque in the prox/mid PDAthat is too small to evaluate. Non Coronary Cardiac Findings: Normal cardiac chamber size. No pericardial thickening or calcification. Normal interatrial and interventricular septum, atrioventricular valves,ventriculo-arterial valves, pulmonary veins and imaged central veins. Central and branch pulmonary arteries in the field of view areunremarkable. Thoracic aorta and imaged thoracic aortic branches in the field of vieware unremarkable. The left ventricular systolic function is visually normal. Extra Cardiac Structures: Within the focused field of view, evaluation of the visualized thoracicand upper abdominal structures demonstrates no additional abnormalities;specifically normal appearances of the lung parenchyma, mediastinum,pleura, chest wall, esophagus, spleen, stomach and colon. IMPRESSION: 1. Severe coronary calcification with an Agatston score = 3600 using theAJ-130 method, which represents 99 percentile when matched for age, genderand ethnicity. Vascular age is 89 years. 2. Multivessel coronary artery disease 3. CAD-RADS 5: Management recommendations: Consider further evaluationwith invasive coronary angiography and revascularization as appropriate.Recommendation for anti-ischemic and preventative management should beconsidered as well as risk factor modification. 4. No significant non coronary cardiac findings in particular normalcardiac chambers, non-coronary vessels in the field of view andunremarkable pericardium. 5. Extracardiac structures in the field of view are unremarkable. CRITICAL RESULT: No. COMMUNICATION: Per this written report. Drafted by David Howard MD on 02/15/2023 10:15 AM Final report signed by David Howard MD on 02/15/2023 10:43 AM Kiara Guido EXCHANGE FLOOR MANAGER IMG CT PROCEDURES Karie l Result documented in this encounter Visit Diagnoses Diagnosis Abnormal stress test Other nonspecific abnormal cardiovascular system function study documented in this encounter Care Teams Director Of Database Marketing Relationship Specialty Start Date End Date Elvin Rasmussen MD [facility] [place] [address] PCP - General 02/14/23 documented as of this encounter
--- OUTSIDE RECORDS SUMMARY | 2024-05-09 09:26 | XMS_ITS ---
Author Organization [facility] Address [address] [facility] [address] [place] [id number] Care Team Providers Care Computer Support Technician Name Role Phone Elvin Rasmussen Primary Care Provider [phone] REASON FOR VISIT 6 month follow up Encounters Encounter Location Date Provider Diagnosis [place] [address] [facility] [address] [place] [id number] 04/26/2024 Elvin Rasmussen PLAN OF TREATMENT Next Appt Details Provider Name:Elvin Mckinley ry, 06/04/2024 10:15:00 AM, [address] [facility], [address], [place], [phone],
--- OUTSIDE RECORDS SUMMARY | 2024-05-09 09:26 | XMS_ITS ---
[facility] Address [address] [facility] [address] [place] [phone] Care Team Providers Care Box Strapper Name Role Phone Elvin Rasmussen Primary Care Provider ALLERGIES No Known Allergies RESULTS Component Value [...] - 38 plat 249 100 - 400 REASON FOR VISIT Discharge [facility] MEDICATIONS Medication SIG (Take, Route, Frequency, Duration) Notes Start Date End Date Status Sildenafil Citrate 20 MG 1 tab(s) orally as needed for 30 days Not-Taking Colchicine-Probenecid 0.5-500 MG 1 tab(s) orally once daily for 90 days Active Feosol Bifera 28 MG 1 tablet Orally Once a day for 30 day(s) 04/24/2024 Active Levothyroxine Sodium 150 MCG 1 tab(s) orally once a day for 30 days Active Atorvastatin Calcium 80 MG 1 tablet Oral ly Once a day Active Allopurinol 100 MG 1 tab(s) orally once a day for 90 days Active Bismuth/Metronidaz/Tetracy clin 140-125-125 MG 3 capsules after meals and at bedtime Orally Four times a day for 10 day(s) Active Losartan Potassium-HCTZ 50-12.5 MG 1 tab(s) orally once a day Active Pantoprazole Sodium 40 MG 1 tablet 1/2 t o 1 hour before morning meal Orally Once a day for 30 day(s) Active miSOPROStol 200 MCG 1 tablet Orally Four times a day for 30 day(s) Active amLODIPine Besylate 5 MG 1 tablet Orally Once a day for 30 day(s) Active Prasugrel HCl 10 MG as directed Orally Active PROBLEMS Problem Type ICD Code Onset Dates Problem Status W/U Status Risk SNOMED Code Notes Problem Gastrointestinal hemorrhage associated with gastric ulcer (K25.4) Active confirmed 03009373 Problem PUD (peptic ulcer disease) (K27.9) Active confirmed 17193279 Problem Anemia due to GI blood loss (D50.0) Active confirmed 597561652 VITAL SIGNS Blood pressure systolic 118 mm Hg 04/24/20 24 Blood pressure diastolic 72 mm Hg 024 Heart Rate 69 /min 04/24/2024 Height 70 in 04/24/2024 Weight 191.4 lbs 04/24/2024 BMI 27.46 kg/m2 04/24/2024 Encounters Encounter Location Date Provider Diagnosis [facility] [address] [facility] [address] [place], [place] [id number] 04/24/2024 Elvin [place] Gastrointestinal hemorrhage associated with gastric ulcer K25.4 ; PUD (peptic ulcer disease) K27.9 ; Anemia due to GI blood loss D50.0 and H. pylori infection A04.8 ASSESSMENTS Encounter Date Diagnosis Assessment Notes Treatment Notes Treatment Clinical Notes 04/24/2024 Gastrointestinal hemorrhage associated with gastric ulcer (ICD-10 - K25.4) Keep follow up appt. with Dr. Dean 04/24/2024 PUD (peptic ulcer disease) (ICD-10 - K27.9) 04/24/2024 Anemia due to GI blo od loss (ICD-10 - D50.0) 04/24/2024 H. pylori infection (ICD-10 - A04.8) PLAN OF TREATMENT Medication Medication Name Sig Start Date Stop Date Notes Feosol Bifera 28 MG 1 tablet Orally Once a day for 30 day(s) 04/24/2024 Treatment Notes Assessment Notes Gastrointestinal hemorrhage associated with gastric ulcer Keep follow up appt. with Dr. Dean Next Appt Details Follow Up: 4 to 6 Weeks, Lina son: Provider Name:Elvin chavez, 06/04/2024 10:15:00 AM, [address] [facility], [address], [place], [place], [phone], Progress Notes * Examination Category Sub-Category Detail Notes General Examination Heart: RSR Lungs: clear to auscultatio n General Appearance: NAD History and Physical Notes * HPI (History of Present Illness) Category Sub-Category Detail Notes HPI Here for follow up on: [facility] hospi talization, see pt docs. Pt admitted for blood loss due to bleeding ulcer. Pt states he is doing well and has not had any issues since d/c
[2024-05-09 09:52] LABS: Basophils % 0.4 % (0.1-2.0); Eosinophils # 0.1 K/mm3 (0.0-0.4); Hematocrit 32.4 % (42.0-52.0); Hemoglobin 10.6 g/dL (14.1-18.0); Lymphocytes # 2.4 K/mm3 (0.7-4.5); Mean Corpuscular HGB Conc 32.8 g/dL (31.8-35.4); Mean Corpuscular Volume 88.3 fl (80-94); Mean Platelet Volume 9.2 fl (7.4-10.4); Monocytes # 0.4 K/mm3 (0.1-1.0); Monocytes % 6.3 % (1.7-9.3); Neutrophils # 3.6 K/mm3 (1.8-7.8); Neutrophils % 55.3 % (37.0-80.0); Platelet Count 296 K/mm3 (142-424); Red Blood Count 3.67 M/mm3 (4.60-6.20); Red Cell Distribution Width 15.3 % (11.5-17.5); White Blood Count 6.5 K/mm3 (4.8-10.8)
[2024-05-09 10:03] LABS: Iron 41 ug/dL (49-181)
[2024-05-09 10:14] LABS: Total Iron Binding Capacity 467 ug/dL (261-462)
[2024-05-09 10:39] LABS: Ferritin 12.2 ng/ml (17.9-464)
== END 2024-05-09 23:59 | disposition home or self-care (01) ==
LOC: LAB 09:13
PROVIDERS: PCP Family Medicine; Visit Provider Internal Medicine Gastroenterology
DX: K92.2 Gastrointestinal hemorrhage, unspecified (principal); D64.9 Anemia, unspecified; K92.0 Hematemesis
CPT/HCPCS: 36415; 82728; 83540; 83550; 85025

== ENCOUNTER 2024-07-30 09:34 | Outpatient (CLI) | payer MEDICARE, OTHER, SELFPAY ==
--- NOTE | 2024-07-30 09:39 | XR_ITS ---
FINAL REPORT CLINICAL HISTORY: LOW BACK PAIN COMPARISON: None FINDINGS: LUMBOSACRAL SPINE SERIES Five views of the lumbosacral spine were obtained. There is no fracture present. There is no malalignment. There is mild diffuse degenerative disc change. Mild facet arthropathy is noted. IMPRESSION: Mild degenerative changes. Reviewed, Interpreted and Dictated by Wm Goetz MD Transcribed by Alexus Falcon Authenticated and [facility]
== END 2024-07-30 23:59 | disposition home or self-care (01) ==
LOC: RAD 09:35
PROVIDERS: PCP Family Medicine; Visit Provider Family Medicine
DX: M54.50 Low back pain, unspecified (principal)
CPT/HCPCS: 72110

== ENCOUNTER 2024-08-13 07:01 | Outpatient (CLI) | payer MEDICARE, OTHER, SELFPAY ==
[2024-08-14 17:10] LABS: H. pylori Breath Test Negative (Negative)
== END 2024-08-13 23:59 | disposition home or self-care (01) ==
LOC: LAB 07:01
PROVIDERS: PCP Family Medicine; Visit Provider Nurse Practitioner Family
DX: A04.8 Other specified bacterial intestinal infections (principal); K25.4 Chronic or unspecified gastric ulcer with hemorrhage; B96.81 Helicobacter pylori [H. pylori] as the cause of diseases classified elsewhere
CPT/HCPCS: 83013

== ENCOUNTER 2024-08-19 12:38 | Outpatient (CLI) | payer MEDICARE, OTHER, SELFPAY ==
[2024-08-19 13:07] LABS: Basophils # 0.1 K/mm3 (0-0.2); Basophils % 0.7 % (0.1-2.0); Eosinophils # 0.3 K/mm3 (0.0-0.4); Eosinophils % 3.1 % (0.1-12.0); Hematocrit 42.3 % (42.0-52.0); Hemoglobin 14.2 g/dL (14.1-18.0); Lymphocytes # 2.9 K/mm3 (0.7-4.5); Lymphocytes % 33.7 % (10-50); Mean Corpuscular HGB Conc 33.6 g/dL (31.8-35.4); Mean Corpuscular Hemoglobin 28.1 pg (27.0-31.2); Mean Corpuscular Volume 83.6 fl (80-94); Mean Platelet Volume 10.2 fl (7.4-10.4); Monocytes # 0.6 K/mm3 (0.1-1.0); Monocytes % 7.6 % (1.7-9.3); Neutrophils # 4.6 K/mm3 (1.8-7.8); Neutrophils % 54.5 % (37.0-80.0); Platelet Count 179 K/mm3 (142-424); Red Blood Count 5.06 M/mm3 (4.60-6.20); Red Cell Distribution Width 15.3 % (11.5-17.5); White Blood Count 8.5 K/mm3 (4.8-10.8)
[2024-08-19 13:42] LABS: Iron 78 ug/dL (49-181)
[2024-08-19 13:51] LABS: Total Iron Binding Capacity 373 ug/dL (261-462)
== END 2024-08-19 23:59 | disposition home or self-care (01) ==
LOC: LAB 12:39
PROVIDERS: PCP Family Medicine; Visit Provider Nurse Practitioner Family
DX: D50.9 Iron deficiency anemia, unspecified (principal)
CPT/HCPCS: 36415; 82728; 83540; 83550; 85025

== ENCOUNTER 2024-10-28 11:23 | Day surgery (SDC) | payer MEDICARE, OTHER, SELFPAY ==
[2024-10-25 14:39] VITALS: BMI 28.7
[2024-10-28 12:32] VITALS: BP 135/65; PULSE 62; RESP 17; TEMP 36.4; O2SAT 98
[2024-10-28] MEDS: LACTATED RINGERS 1000ML 1,000 ML 50 ML IV (12:32)
--- NOTE | 2024-10-28 12:57 | P.HP_ITS ---
History of Present Illness *Admission Date: 10/28/24 *Reason for visit:: Screening colonoscopy *History of present illness: Mr. Marie is a 68-year-old gentleman who is here for screening colonoscopy. It has been 15 years since last colonoscopy. The examination is deemed medically necessary for screening colonoscopy. The patient has been seen, interviewed and examined prior to the procedure by both myself and the anesthesia provider. [facility] Disclaimer: The information contained in this section may have been updated after the patient was seen, as this information can be updated by other users. Medical History Ex-smoker History of gout Plantar fasciitis, bilateral Bifascicular block Coronary artery disease Hyperlipidemia Abnormal computed tomography angiography of heart Hypertension Surgical History History of esophagogastroduodenoscopy (EGD) History of colonoscopy History of thyroidectomy History of cardiac cath Family History Other Diabetes Family history of acute congestive heart failure Family history of acute heart failure Social History Smoking Status: Former smoker alcohol intake: former substance use type: denies use current occupational status: employed Travel in the last 8 weeks?: Inside the [place] Have you lived/traveled outside US in past 30 days?: No Contact w/someone who lives/traveled outside US past 30 days?: No Exposure to someone with infectious disease in past 14 days?: No Do you have a fever (greater than 100.4 F or 38 C)?: No Have you tested positive for COVID-19?: No Exposed to someone with COVID-19 in past 14 days?: No Do you have a sore throat?: No Do you have a cough?: No Do you have any weakness?: No Do you have any diarrhea?: No Are you experiencing any unusual bleeding?: No Do you have any muscle aches/pain?: No Do you have any abdominal pain?: No Are you experiencing loss of taste or smell?: No Other Medical History Have you received the Flu Vaccine for this season: No Have you received the Pneumonia Vaccine: Yes Review of Systems Review of Systems Review of systems (narrative): Negative *Cardiovascular Comments: Negative *Gastrointestinal Comments: Negative *Genitourinary Comments: Negative *Musculoskeletal Comments: Negative *Neurologic Comments: Negative Meds Home Medications and Allergies Home Medications ?Medication ?Instructions ?Recorded ?Confirmed ?Type levothyroxine 150 mcg tablet 150 mcg PO DAILY 02/02/23 10/25/24 History losartan 50 mg-hydrochlorothiazide 1 tab PO DAILY blood pressure #90 03/14/24 10/25/24 Rx 12.5 mg tablet tabs atorvastatin 80 mg tablet 80 mg PO DAILY 04/16/24 10/25/24 History amlodipine 5 mg tablet 5 mg PO DAILY #90 tabs 09/05/24 10/25/24 Rx prasugrel HCl 10 mg tablet 10 mg PO DAILY #90 tabs 10/08/24 10/25/24 Rx (Effient) New Prescriptions to Start Prescriptions: Allergies Allergy/AdvReac Type Severity Reaction Status Date / Time No Known Allergies Allergy Verified 10/28/24 12:29 Exam Data for Last 24 hours Vital signs and Labs for Last 24 Hours: Temp Pulse Resp BP Pulse Ox O2 Del Method 97.6 F 62 17 135/65 98 Room Air 10/28/24 12:32 10/28/24 12:32 10/28/24 12:32 10/28/24 12:32 10/28/24 12:32 10/28/24 12:32 I & O for Last 24 hours: Intake & Output 10/25/24 10/26/24 10/27/24 10/28/24 23:59 23:59 23:59 23:59 Weight 200 lb *Routine HEENT Exam Head: Present normocephalic Eye: Present EOMI and PERRL ENT: Present mucous membranes moist *Routine Neck Exam Neck: Present supple *Routine Respiratory Exam Respiratory: Present CTA bilaterally *Routine Cardiovascular Exam Cardiovascular: Present RRR *Routine Abdominal Exam Abdominal: Present soft and normoactive bowel sounds; Absent tenderness *Routine Rectal Exam Rectal:: deferred *Routine Genitalia Exam Genitalia:: deferred *Routine Extremities Exam Extremities: Absent cyanosis, clubbing or edema *Routine Skin Exam Skin: Present warm; Absent rash *Routine Neurological Exam Neurological: Present alert and oriented X3 Assessment and Plan *Assessment and plan (1) Screening for malignant neoplasm of colon: Status: Acute Category: Medical Code(s): Z12.11 - Encounter for screening for malignant neoplasm of colon Plan A/P: 1. Screening for colon cancer is the preprocedural diagnosis. The patient will be anesthetized/sedated using MAC sedation. The patient has been seen and examined. Cardiac and lung assessment prior to the examination is stable. Proceed with planned screening colonoscopy.
[2024-10-28 13:04] VITALS: O2SAT 100
--- NOTE | 2024-10-28 13:07 | HMH.PROCNOTE ---
[facility] Procedure Note Date: 10/28/24 Time: 13:27 Procedure Note:: Colonoscopy Procedure Report: Colonoscopy with cold snare polypectomy Endoscopist: Yobani Dean II, MD Referring physician: Elvin Rasmussen MD Date of Procedure: October 28, 2024 Equipment: Olympus 190 variable stiffness pediatric colonoscope Sedation: MAC sedation Indication: Mr. Marie is a 68-year-old gentleman who is here for screening colonoscopy. His last colonoscopy was 15 years ago. He reports no abdominal pain, weight loss, change in his bowel habits or rectal bleeding. He reports no family history of colon cancer. The patient did have a gastric ulcer with bleeding in March 2024 and his EGD with me showed a prepyloric gastric ulcer with visible vessel. He had gold probe BiCap ablation and Endo Clip placement. His biopsies were positive for H. pylori and he had been using NSAIDs (meloxicam). Meloxicam was discontinued and he was treated for H. pylori and has done well. Procedure: Prior to the procedure, a history and physical exam was performed, and patient's medications and allergies were reviewed. The risks, benefits and alternatives of the sedation and procedure were discussed with the patient. All questions were answered and informed consent was obtained. The patient was brought to the procedure room. Patient identification and proposed procedure were verified by the physician and the nurse. The patient was placed in a left lateral decubitus position and the scope was passed under direct vision. Throughout the procedure, the patient's blood pressure, pulse, and oxygen saturations were monitored continuously. The colonoscopy was accomplished without difficulty. The patient tolerated the procedure well. Findings: On digital rectal examination there was normal rectal tone. There were no external hemorrhoids. The colonoscope was introduced through the anal canal to the rectum and advanced to the cecum. The ileocecal valve and appendiceal orifice were identified. The scope was advanced a short distance into the ileum which appeared grossly normal. The scope was then withdrawn into the colon. There were 3 polyps (ascending x 1 (3 mm) and rectum x 2 (3 and 4 mm)). These were all removed via cold snare polypectomy. The remaining cecum, ascending, transverse, descending, sigmoid and rectum were grossly normal. There were no other mucosal abnormalities identified. Upon retroflexion within the rectum there were grade 2 internal hemorrhoids. The preparation was excellent throughout with [place] Preparation Score of 9. The cecal time was 10 minutes. Impression: 1. Diminutive colonic polyps x 3 2. Grade 2 internal hemorrhoids Plan: I will follow-up the polyp histology and recommend repeat surveillance colonoscopy again in 5 to 10 years based upon the pathology. I would encourage psyllium bulking fiber supplementation on a maintenance basis.
[2024-10-28 13:28] VITALS: BP 95/56; PULSE 60; RESP 16; O2SAT 97
[2024-10-28 13:38] VITALS: BP 103/57; PULSE 51; RESP 16; O2SAT 98
[2024-10-28 13:48] VITALS: BP 107/60; PULSE 53; RESP 16; O2SAT 98
[2024-10-28 13:55] VITALS: BP 103/62; PULSE 51; RESP 16; O2SAT 98
== END 2024-10-28 14:15 | disposition home or self-care (01) ==
PROVIDERS: PCP Family Medicine; Visit Provider Internal Medicine Gastroenterology
PROC: 0DJD8ZZ Inspection of Lower Intestinal Tract, Via Natural or Artificial Opening Endoscopic (ICD-10-PCS; CPT 45378; principal; 2024-10-28 13:00)
DX: Z12.11 Encounter for screening for malignant neoplasm of colon (principal); K63.5 Polyp of colon; K64.1 Second degree hemorrhoids
CPT/HCPCS: 45385; J7120

== ENCOUNTER 2024-12-06 13:51 | Outpatient (POV) | payer MEDICARE, OTHER, SELFPAY ==
--- OUTSIDE RECORDS SUMMARY | 2024-10-11 09:19 | XMS_ITS ---
Author Organization [facility] Address [address] [place] [id number] Care Team Providers Care Bearing Grinder Name Role Phone Elvin Rasmussen Primary Care Provider [phone] REASON FOR VISIT Message Encounters Encounter Location Date Provider Diagnosis [place] [address] [place] [id number] 10/11/2024 Elvin Rasmussen Other chronic pain G 89.29 ; Low back pain, unspecified M54.50 and Degeneration of intervertebral disc of lumbar region with discogenic back pain M51.360 Assessments Encounter Date Diagnosis (ICD Code) Assessment Notes Treatment Notes Treatment Clinical Notes Section Notes 10/11/2024 Other chronic pain (ICD-10 - G89.29) 10/11/2024 Low back pain, unspecified (ICD-10 - M54.50) 10/11/2024 Degeneration of intervertebral disc of lumbar region with discogenic back pain (ICD-10 - M51.360) Plan Of Treatment Pending Test Test Name Order Date MRI : Spine, Lumbosacral, without contra st 10/11/2024 Next Appt Details Provider Name:Elvin Mckinley ry, 05/29/2025 09:00:00 AM, [address] [facility], [place], [phone], Progress Notes * AIDEN MARIEDOB:1955 (68 yo M)Acc No.[id number]:10/11/2024 Patient: Radhames AIDEN ROBERTSON :1955 A ge:68 Y S ex:Male Address:[place], [address] Subjective: * Chief Complaints: * M essage * Medical History: * Surgical History: * Hospitalization/Major Diagno stic Procedure: * Medications: Objective: Assessment: * Assessment: 1. O ther chronic pain - G89.29 (Primary) 2 . L ow back pain, unspecified - M54.50 3 . D egeneration of intervertebral disc of lumbar region with discogenic back pain - M51.360? Plan: * Treatment: 2.?Low back pain, unspecified?Imaging: MRI : Spine, Lumbosacral, without contrast* Araceli Garza 10/14/2024 03:0 6:42 PM > in clinical review through insurance 3.?Degeneration of intervertebral disc of lumbar region with discogenic back pain?Imaging: MRI : Spine, Lumbosacral, without contrast* Araceli Garza 10/14/2024 03:0 6:42 PM > in clinical review through insurance * Procedure Codes: * true * Date: Generated for Kelly denise/Barbara/eTransmitting on: 0 12/06/2024 01:54 PM EDT
--- OUTSIDE RECORDS SUMMARY | 2024-10-29 05:09 | XMS_ITS ---
Author Organization [facility] Address [address] [facility] [address] [place] [phone] Care Team Providers Care Radio Maintainer Name Role Phone Elvin Rasmussen Primary Care Provider Reason For Referral Diagnosis 1 Low back pain, unspe cified (M54.50) Diagnosis 2 Degeneration of inte rvertebral disc of lumbar region with discogenic back pain (M51.360) Diagnosis 3 Other chronic pain ( G89.29) Referral Organization [facility] Referring Provider First Name Elvin Referring Provider Last Name Grady Referring Provider Speciality Family Pra ctice Referred Provider Kobe Pratt Referred Provider Specialty Pain Managem ent General Notes Araceli Garza 2024 08:28:02 AM > faxed to [facility] Pain Management, Araceli Garza 11/18/2024 11:49:49 AM > spoke to Nona at pain management; she will call today to get the patient scheduled Referral Priority Routine REASON FOR VISIT Denial Encounters Encounter Location Date Provider Diagnosis [place] [address] [facility] [address] [place] [id number] 10/29/2024 Elvin Rasmussen Low back pain, unspecified M54.50 ; Degeneration of intervertebral disc of lumbar region with discogenic back pain M51.360 and Other chronic pain G89.29 Assessments Encounter Date Diagnosis (ICD Code) Assessment Notes Treatment Notes Treatment Clinical Notes Section Notes 10/29/2024 Low back pain, unspecified (ICD-10 - M54.50) 10/29/2024 Degeneration of intervertebral disc of lumbar region with discogenic back pain (ICD-10 - M51.360) 10/29/2024 Other chronic pain (ICD-10 - G89.29) Plan Of Treatment Referrals Referral Date Details 11/12/2024 11/12/2024, Kobe Jamil x Next Appt Details Provider Name:Elvin Mckinley ry, 05/29/2025 09:00:00 AM, [address] [facility] [address], [address] , [place], [place], [phone], Progress Notes * AIDEN MARIEDOB:1955 (69 yo M)Acc No.[id number]:10/29/2024 Patient: AIDEN SON :1955 A ge:68 Y S ex:Male Address:[address] [place] [address], [id number] Subjective: * Chief Complaints: * D enial * Medical History: * Surgical History: * Hospitalization/Major Diagno stic Procedure: * Medications: Objective: Assessment: * Assessment: 1. L ow back pain, unspecified - M54.50 (Primary) 2 . D egeneration of intervertebral disc of lumbar region with discogenic back pain - M51.360 3 . O ther chronic pain - G89.29? Plan: * Treatment: 2. D egeneration of intervertebral disc of lumbar region with discogenic back pain Referral To:[facility] Reason: 3. O ther chronic pain Referral To:[facility] Reason: * Procedure Codes: * true * Date: Generated for Kelly denise/Barbara/eTransmitting on: 0 12/06/2024 01:54 PM EDT Consultation Request Notes Referral Date Referring Provider Referred Provider Not es 11/12/2024 Elvin Rasmussen Anjum
--- OUTSIDE RECORDS SUMMARY | 2024-11-26 06:00 | XMS_ITS ---
[facility] [address] [place] [id number] Care Team Providers Care Hand Cloth Folder Name Role Phone Elvin Rasmussen Primary Care Provider Allergies No Known Allergies Results Component Value Reference Range Notes P-Comprehensive Metabolic Pa franchesca (CMP) Reviewed date:11/27/2024 10:27:54 AM Interpretation:Normal Performing Lab: Notes/Report: Test performed by [facility] [address] [place] [address] , [address], [place] [address] Jimmy Osorio MD, Tar Processing Technician CLIA: [id number] Sodium 139 135-145 mmol/L Potassium 3.9 3.5-5.3 [...] Interpretation:Normal Performing Lab: Notes/Report: Test performed by [facility] [address] [facility] , [address], [place] [address] Jimmy Osorio MD, Tar Processing Technician CLIA: [id number] Cholesterol 113 <200 mg/dL Triglycerides 46 <150 [...] MCG 1 tab(s) or ally once a day for 90 days Active Pantoprazole Sodium 40 MG [...] tab(s) orally as needed for 30 days Active miSOPROStol 200 MCG 1 tablet Orally Four times a day for 30 day(s) Active Bismuth/Metronidaz/Tetracycl in 140-125-125 MG 3 capsules after meals and at bedtime Orally Four times a day for 10 day(s) Active Vital Signs Blood pressure systolic 122 mm Hg 11/27/19 25 Blood pressure diastolic 70 mm Hg 025 Heart Rate 62 /min 11/26/2024 Height 70 in 11/26/2024 Weight 192.6 lbs 11/26/2024 BMI 27.63 kg/m2 11/26/2024 Encounters Encounter Location Date Provider Diagnosis [facility] [address] [facility] [address] [place], [place] [address], [place] [id number] 11/26/2024 Elvin Rasmussen Coronary artery dise ase involving crow coronary artery of crow heart without angina pectoris I25.10 ; Pure hypercholesterolemia E78.00 ; Primary hypertension I10 and BMI 27.0-27.9,adult Z68.27 Assessments Encounter Date Diagnosis (ICD Code) Assessment Notes Treatment Notes Treatment Clinical Notes Section Notes 11/26/2024 Coronary artery dise ase involving crow coronary artery of crow heart without angina pectoris (ICD-10 - I25.10) [...] [place] , 05/29/2025 09:00:00 AM, [address] [facility] [address] [facility], [address], [id number], Progress Notes * AIDEN MARIEDOB:1955 (69 yo M)Acc No.[id number]:11/26/2024 Progress Notes Patient: AIDEN SON Provider: Sarita Rasmussen M.D. :1955 A ge:69 Y S ex:Male Date:11/26/2024 Address:[address] [place] [address] [facility] Subjective: * Chief Complaints: * 1 . [...] ulcer disease, GI Bleed 03/2024, treated at [facility], H Pylori positive, 2023, Chronic back pain. * Surgical History: t hyroidectomy - [facility] 1984, Percutaneous coronary intervention with 1 stent placed, [facility] in [place] 2004, Percutaneous coronary intervention 4 stents placed at [facility] 2022, EGD - treatment of bleeding stomach ulcer, at [facility] 03/2024, Colonoscopy, Dr. Dean 10/28/2024. * [...] * Examination: C ardiology: General Appearance: p irving, NAD. Heart sounds: R RR, normal S1, S2. Lungs: c lear, no rales or wheezes. Extremities: n o leg edema. Peripheral pulses: 2 plus bilateral. ? Assessment: * Assessment: 1. C oronary artery disease involving crow coronary artery of crow heart without angina pectoris - I25.10 (Primary) 2 . P ure hypercholesterolemia - E78.00 ?3. P rimary hypertension - I10 4 . B IN 27.0-27.9,adult - Z68.27 ? Plan: * Treatment: [...] years. * Follow Up: 6 Months * Billing Information: * Visit Code: 28190 Office Visit, Est Pt., Level 4. * Procedure Codes: G2211 Complex e/m [place] on. 1036F TOBACCO NON-USER. G8950 PREHTN/HTN BP DOC INDCD F/U DOC. G8752 MOST RECENT SYSTOLIC BP < 140MM HG. G8754 MOST RECENT DIASTOLIC BP < 90MM HG. G8420 BMI<30 AND >=22 CALC & DOCU. 3017F COLORECTAL CA SCREEN DOC REV. * Electronic signature of Crissy Rasmussen MD on 12/06/2024 at 01:54 PM EDT Sign off status: Pending * Provider: Sarita Rasmussen M.D. Date: 0 11/26/2024 Generated for Kelly denise/Barbara/Kurtisitting on: 0 12/06/2024 01:54 PM EDT History and Physical Notes * [...]
--- NOTE | 2024-12-06 13:54 | EXP.PAIN.OV ---
HPI Data of Consult Patient: new to practice Consult date: 12/06/24 Requesting Physician: Kely Savage APRN Primary Care Provider: Elvin Rasmussen MD Reason for consult: Low back pain History of present illness: Mr. Marie is a 69 year old male who presents today as a new patient. He is a referral from Dr. Rasmussen's office. Patient states that he is at chronic back issues for years however it has always been fairly manageable. He does state however the last 6 months it has gotten much more severe and is really interfering with his ability perform activities of daily living such as cooking and cleaning. Patient has tried oral medications such as Tylenol along with heat and ice and topicals with minimal relief. Patient denies any history of surgery or injections or MRI. Patient has gone to physical therapy just a couple of months ago and went several sessions with no additional improvement. Patient is interested in any help we may be able to provide. Patient is not on any scheduled medications. His Jesus has been reviewed and is appropriate. Pain at rest (0-10 scale): 5 Has patient had previous pain injection?: No Conservative treatment options previously tried: Home exercise plan (Longer than 6-week) and Physical Therapy (In the last few months multiple sessions with no additional changes) cc:: CC: Kely Savage APRN [facility] Disclaimer: The information contained in this section may have been updated after the patient was seen, as this information can be updated by other users. Medical History (Updated 12/06/24 @ 15:01 by Kely Savage APRN) Ex-smoker History of gout Plantar fasciitis, bilateral Bifascicular block Coronary artery disease Hyperlipidemia Abnormal computed tomography angiography of heart Hypertension Surgical History History of esophagogastroduodenoscopy (EGD) History of colonoscopy History of thyroidectomy History of cardiac cath Family History Other Diabetes Family history of acute congestive heart failure Family history of acute heart failure Social History Smoking Status: Former smoker alcohol intake: former substance use type: denies use current occupational status: other Travel in the last 8 weeks?: None Review of Systems Review of Systems Review of systems:: pertinent systems reviewed and negative unless documented below Review of systems (narrative): Review of Systems: General: No recent weight changes, no fever, no sleep disturbances Respiratory: No cough, no shortness of air, no recurring pulmonary infections Cardiovascular/peripheral vascular: No chest pain, no palpitations, no edema, no shortness of breath Gastrointestinal: No new onset incontinence, normal bowel movements reported Genitourinary: No new onset incontinence Musculoskeletal: Low back pain Psychiatric: [Normal mood/affect] Neurological: [Denies weakness in extremities], [denies balance issues] Meds Home Medications and Allergies Home Medications ?Medication ?Instructions ?Recorded ?Confirmed ?Type levothyroxine 150 mcg tablet 150 mcg PO DAILY 02/02/23 12/06/24 History losartan 50 mg-hydrochlorothiazide 1 tab PO DAILY blood pressure #90 03/14/24 12/06/24 Rx 12.5 mg tablet tabs atorvastatin 80 mg tablet 80 mg PO DAILY 04/16/24 12/06/24 History amlodipine 5 mg tablet 5 mg PO DAILY #90 tabs 09/05/24 12/06/24 Rx prasugrel HCl 10 mg tablet 10 mg PO DAILY #90 tabs 10/08/24 12/06/24 Rx (Effient) New Prescriptions to Start Prescriptions: Allergies Allergy/AdvReac Type Severity Reaction Status Date / Time No Known Allergies Allergy Verified 10/28/24 12:29 Objective Narrative: Physical Exam: General: Alert and oriented x3, no acute distress, pleasant and cooperative Lungs: Respirations even and unlabored, symmetrical chest expansion Eyes: PERRL Musculoskeletal: Flexion and extension of lumbar [spine] somewhat guarded secondary to pain, [antalgic gait noted] positive Kemps test Neurological: Speech clear, no gross sensory deficit Additional findings Additional findings: FINDINGS: LUMBOSACRAL SPINE SERIES Five views of the lumbosacral spine were obtained. There is no fracture present. There is no malalignment. There is mild diffuse degenerative disc change. Mild facet arthropathy is noted. IMPRESSION: Mild degenerative changes. 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 Patient did have limited range of motion of his lumbar spine with a positive Kemps test during today's visit. He denies any radiating symptoms to his legs. I did discuss with the patient that I do believe he would benefit from a lumbar medial branch block. Risk and benefits were discussed with the patient and he would like to proceed forward with this plan of care. Patient has tried and failed conservative therapy including oral medications, heat and ice, topicals, at home stretching exercise for longer than 12 weeks. Patient has been experiencing chronic low back pain for years. Patient was counseled that if he does get significant relief with his first lumbar medial branch block that we will plan on repeating it with the plan to progress forward to a lumbar RFA at a later date. Patient agrees with this plan of care. Patient will be scheduled for his first diagnostic lumbar medial branch block bilaterally L4-L5 and L5-S1 under fluoroscopy. I will order the patient a compounded cream. Patient has been instructed to contact the clinic with any concerns before the next appointment. Dr. Pratt has reviewed this note and agrees with this plan of care. This note was dictated using voice recognition software and make contain errors or omissions. All injections are used with Lidocaine, Bupivacaine and dexamethasone unless diagnostic in which there is no steroids injected. Occasionally urine drug screen is needed to verify patient's compliance with our office pain contract. This is ordered based off specific treatments related to chronic pain with the potential to abuse certain medications.
--- OUTSIDE RECORDS SUMMARY | 2024-12-06 13:55 | XMS_ITS | Patient Health Record ---
[facility] Organization [facility] Address [address] [facility] [address] [place] [id number] Care Team Providers Care Clinical Care Coordinator Name Role Phone Elvin Rasmussen Primary Care Provider [phone] Allergies No Known Allergies Results Component Value Reference Range Notes colonoscopy Reviewed date:12/03/2024 10:41:20 AM Interpretation:polyps, hemorrhoids, repeat 5-10 yrs Performing Lab: Notes/Report: polyps, hemorrhoids, repeat 5-10 yrs result: polyps, hemorrhoids repeat study: 5-10 yrs P-Uric Acid Reviewed date:06/05/2024 12:29:05 PM Interpretation:Normal Performing Lab: Notes/Report: Test performed by [facility] [address] [place] [address] , [address], [place] [address] Jimmy Osorio MD, Station Helper CLIA: [id number] Uric Acid 4.5 3.4-8.0 mg/dL P-Microalbumin/Creatinine, R andom Urine Sample Reviewed date:06/05/2024 12:29:05 PM Interpretation:Normal Performing Lab: Notes/Report: Test performed by [facility] [address] [place] [address] , [address], [place] [address] Jimmy Osorio MD, Station Helper CLIA: [id number] Albumin/Creatinine Ratio, Urine <6.0 0-30 ug/mg Microalbumin, Urine, Random <0.3 Creatinine, Urine 49.2 P-TSH Reviewed date:06/05/2024 12:29:05 PM Interpretation:Normal Performing Lab: Notes/Report: Test performed by [facility] [address] [place] [address] [address], [place] [address] Jimmy Osorio MD, Station Helper CLIA: [id number] TSH 3.26 0.43-5.25 mU/L P-Lipid Panel Reviewed date:06/05/2024 12:29:05 PM Interpretation:Normal Performing Lab: Notes/Report: Test performed by [facility] [address] [place] [address] [place] [address] Jimmy Osorio MD, Station Helper CLIA: [id number] Cholesterol 99 <200 mg/dL Triglycerides 44 <150 mg/dL HDL Cholesterol 44 >39 mg/dL Cholesterol / HDL Ratio 2.25 0.00-4.99 Ratio Non-HDL Cholesterol 55 <130 mg/dL LDL Cholesterol (Calculation) 46 <130 mg/dL LDL Cholesterol Levels* Less than 100 mg/dL Optimal 100 to 129 mg/dL Near Optimal/ Above Optimal 130 to 159 mg/dL Borderline High 160 to 189 mg/dL High 190 mg/dL and above Very High * Categories as recommended by the 2004 ATPIII guidelines LDL/HDL Ratio 1.1 <3.3 Ratio LDL Cholesterol Patient History Test Date: 11/03/2023 LDL Results: 40 Units: mg/dL % Change: - ------- Test Date: 06/04/2024 LDL Results: 46 Units: mg/dL % Change: +15% P-T4 Free (thyroxine) Reviewed date:06/05/2024 12:29:05 PM Interpretation:Normal Performing Lab: Notes/Report: Test performed by [facility] [address] [place] [address] , [address], [place] [address] Jimmy Osorio MD, Station Helper CLIA: [id number] Thyroxine Free (free T4) 1.22 0.86-1.76 ng/dL P-Comprehensive Metabolic Pa franchesca (CMP) Reviewed date:06/05/2024 12:29:05 PM Interpretation:satisfactory Performing Lab: Notes/Report: Test performed by [facility] [address] [place] [address] , [address], [place] [address] Jimmy Osorio MD, Station Helper CLIA: [id number] Sodium 142 135-145 mmol/L Potassium 3.8 3.5-5.3 mmol/L Chloride 103 97-108 mmol/L CO2 27 22-32 mmol/L Glucose 92 65-99 mg/dL BUN 7 8-23 mg/dL Creatinine 0.93 0.70-1.30 mg/dL Calcium 9.4 8.6-10.4 mg/dL eGFR by Creatinine 90 >59 mL/min/1.73m2 Protein 7.4 6.0-8.3 g/dL Albumin 4.8 3.5-5.3 g/dL Alkaline Phosphatase 70 40-129 IU/L ALT (SGPT) 29 <5-55 IU/L AST (SGOT) 23 <5-46 IU/L Bilirubin, Total 0.7 <0.2-1.2 mg/dL A/G Ratio 1.8 1.1-2.5 CBC Venipuncture (in house) Reviewed date:06/05/2024 12:29:05 PM Interpretation:Normal Performing Lab: Notes/Report: Normal wbc 8.0 3.5 - 10 lymph 29.6% 15 - 50 mid 7.0% 2 - 15 gran 63.4% 35 - 80 rbc 4.55 3.5 - 5.5 hgb 12.8 11.5 - 16.5 hct 39.5 35 - 55 mcv 86.8 75 - 100 mch 28.2 25 - 35 mchc 32.5 31 - 38 platlet 195 100 - 400 CBC Fingerstick (in house) Reviewed date:04/24/2024 12:51:27 [...] - 38 plat 249 100 - 400 M-Hemoglobin and Hematocrit Reviewed date:04/17/2024 08:26:56 AM Interpretation: Performing Lab: Notes/Report: HGB 9.3 14.1-18.0 g/dL HCT 27.7 42.0-52.0 % H-CBC Reviewed date:04/17/2024 08:26:56 AM Interpretation: Performing [...] 0.1 0.0-0.4 K/mm3 BA# 0.0 0-0.2 K/mm3 H-CMP Reviewed date:04/17/2024 08:26:56 AM Interpretation: Performing Lab: Notes/Report: NA 139 136-145 mmol/L K 3.7 3.5-5.1 mmoL/L CL 107 98-107 mmol/L CO2 23 22.0-30.0 mmol/L GAP 12.7 5-15 mEq/L BUN 29 9-20 mg/dl CREATT 1.00 0.66-1.25 mg/dl CRCLE 94 50-200 mL/min GFRAA 90 >60 ML/MIN EGFR 75 >60 ml/min GLU 111 74-100 mg/dl Delta: 203 on 04/16/24 CA 8.1 8.4-10.2 mg/dl BILIT 0.8 0.2-1.3 mg/dl AST 33 17-59 U/L ALT 31 12-78 U/L TP 5.6 6.3-8.2 g/dl ALB 3.5 3.5-5.0 g/dl Delta: 4.1 on 04/16/24 GLOB 2.1 1.3-3.2 g/dL AGRATIO 1.7 1.1-1.8 ALP 36 38-126 U/L X ray : Spine, lumbosacral Reviewed date:07/31/2024 01:03:32 PM Interpretation:mild degenerative changes Performing Lab: Notes/Report: mild degenerative changes Urinalysis - Inhouse Reviewed date:07/12/2024 04:24:16 PM Interpretation: Performing Lab: Notes/Report: Color/Clarity yellow/clear Leuk Neg Nitrite Neg Urobili 3.2 Protein Neg pH 6.0 Blood Neg Sp. Gr. 1.015 Ketone Neg Bili Neg Gluc Neg P-Comprehensive Metabolic Pa franchesca (CMP) Reviewed date:11/27/2024 10:27:54 AM Interpretation:Normal Performing Lab: Notes/Report: Test performed by [facility] [address] [place] [address] , [address], [place] [address] Jimmy Osorio MD, Station Helper CLIA: [id number] Sodium 139 135-145 mmol/L Potassium 3.9 3.5-5.3 [...] Interpretation:Normal Performing Lab: Notes/Report: Test performed by [facility] [address] [place] [address] , [address], [place] [address] Jimmy Osorio MD, Station Helper CLIA: [id number] Cholesterol 113 <200 mg/dL Triglycerides 46 <150 [...] Results: 40 Units: mg/dL % Change: - ------- Test Date: 06/04/2024 LDL Results: 46 Units: mg/dL % Change: +15% ------- Test Date: 11/26/2024 LDL Results: 64 Units: mg/dL % Change: +39% Reason For Referral Diagnosis 1 Low back pain, unspe cified (M54.50) Diagnosis 2 Degeneration of inte rvertebral disc of lumbar region with discogenic back pain (M51.360) Diagnosis 3 Other chronic pain ( G89.29) Referral Organization [facility] Referring Provider First Name Elvin Referring Provider Last Name Grady Referring Provider [facility] Referred Provider Kobe Pratt Referred Provider Specialty Pain Managem ent General Notes Araceli Garza 2024 08:28:02 AM > faxed to [facility] Pain ManagementKayla Brynn 11/18/2024 11:49:49 AM > spoke to Nona at pain management; she will call today to get the patient scheduled Referral Priority Routine Medications Medication SIG (Take, Route, Frequency, Duration) Notes Start Date End Date Status Prasugrel HCl 10 MG as directed Orally Active miSOPROStol 200 MCG 1 tablet Orally Four times a day for 30 day(s) Active Levothyroxine Sodium 150 MCG 1 tab(s) or ally once a day for 90 days Active Losartan Potassium-HCTZ 50-12.5 MG 1 tab(s) orally once a day Active Pantoprazole Sodium 40 MG TAKE ONE TABLE T BY MOUTH ONCE A DAY Active amLODIPine Besylate 5 MG 1 tablet Orally Once a day Active Allopurinol 100 MG 1 tab(s) orally once a day Active Atorvastatin Calcium 80 MG 1 tablet Oral ly Once a day Active Colchicine-Probenecid 0.5-500 MG 1 tab(s) orally once daily Active Feosol Bifera 28 MG 1 tablet Orally Once a day 04/24/2024 Active Sildenafil Citrate 20 MG 1 tab(s) orally as needed for 30 days Active Bismuth/Metronidaz/Tetracycl in 140-125-125 MG 3 capsules after meals and at bedtime Orally Four times a day for 10 day(s) Active Immunizations Vaccine Route Administration Date Status Comme nts COVID 19 Moderna Unknown 10/07/2020 Administered COVID 19 Moderna Unknown 11/04/2020 Administered COVID 19 Moderna Unknown 06/16/2021 Administered Fluzone High Dose (65yr and older) IM Intramuscular 05/04/2023 Administered Fluzone High Dose (65yr and older) IM Intramuscular 06/04/2024 Administered Fluzone Quad (6months&older) IM Intramuscular 04/23/2021 Administered Fluzone Quad (6months&older) IM Intramuscular 05/16/2022 Administered Prevnar (PCV20) IM Intramuscular 05/04/2023 Administered Problems Problem Type SNOMED Code ICD Code Onset Dates Problem Status W/U Status Risk Notes Problem 97697469 Other chronic pa in (G89.29) Active confirmed Problem 529943030 Coronary artery disease involving [place] coronary artery of [place] heart without angina pectoris (I25.10) Active confirmed Problem 730105222 Anemia, unspecif ied type (D64.9) Active confirmed Problem 14168266 Hyperlipidemia, unspecified hyperlipidemia type (E78.5) Active confirmed Problem 69385052 Postoperative hypothyroidism (E89.0) Active confirmed Problem 67390291 Gastrointestinal hemorrhage associated with gastric ulcer (K25.4) Active confirmed Problem 416813605 Anemia due to GI blood loss (D50.0) Active confirmed Problem 737938991 Atherosclerosis of [place] coronary artery without angina pectoris, unspecified whether [place] or transplanted heart (I25.10) Active confirmed Problem 817289028 Pure hypercholesterolemia (E78.00) Active confirmed Problem 635052902 Gastric ulcer, unspecified chronicity, unspecified whether gastric ulcer hemorrhage or perforation present (K25.9) Active confirmed Problem 19976186 PUD (peptic ulce r disease) (K27.9) Active confirmed Problem 63260628 Chronic gout of multiple sites, unspecified cause (M1A.09X0) Active confirmed Problem 23601819 Allergic rhiniti s, unspecified seasonality, unspecified trigger (J30.9) Active confirmed Problem 59860701 Primary hyperten libby (I10) Active confirmed Vital Signs Heart Rate 62 /min 11/26/2024 Blood pressure diastolic 70 mm Hg 11/26/2024 Height 70 in 11/26/2024 Blood pressure systolic 122 mm Hg 11/26/2024 Weight 192.6 lbs 11/26/2024 BMI 27.63 kg/m2 11/26/2024 Encounters Encounter Location Date Provider Diagnosis [facility] [address] [facility] [address] [place], [place] [id number] 04/24/2024 Elvin [place] Gastrointestinal hem orrhage associated with gastric ulcer K25.4 ; PUD (peptic ulcer disease) K27.9 ; Anemia due to GI blood loss D50.0 and H. pylori infection A04.8 [facility] [address] [place], [place] [id number] 06/04/2024 Elvin [place] Primary hypertension I10 ; Anemia due to GI blood loss D50.0 ; Pure hypercholesterolemia E78.00 ; Postoperative hypothyroidism E89.0 ; Chronic gout of multiple sites, unspecified cause M1A.09X0 and Encounter for immunization Z23 [facility] [address] [place], [place] [id number] 07/12/2024 Elvin [place] Encounter for Depart ment of Transportation (DOT) examination for [place] license Z02.4 [facility] [address] [place], [place] [id number] 07/30/2024 Elvin [place] Other chronic pain G 89.29 and Low back pain, unspecified M54.50 [facility] [address] [place], [place] [id number] 11/26/2024 Elvin [place] Coronary artery dise ase involving [place] coronary artery of [place] heart without angina pectoris I25.10 ; Pure hypercholesterolemia E78.00 ; Primary hypertension I10 and BMI 27.0-27.9,adult Z68.27 [facility] [address] [place], [place] [id number] 04/22/2024 Elvin [place] [facility] [address] [place], [place] [id number] 07/31/2024 Elvin [place] [facility] [address] [place], [place] [id number] 10/11/2024 Elvin [place] Other chronic pain G 89.29 ; Low back pain, unspecified M54.50 and Degeneration of intervertebral disc of lumbar region with discogenic back pain M51.360 [facility] [address] [place], [place] [id number] 10/29/2024 Elvin [place] Low back pain, unspe cified M54.50 ; Degeneration of intervertebral disc of lumbar region with discogenic back pain M51.360 and Other chronic pain G89.29 Assessments Encounter Date Diagnosis (ICD Code) Assessment Notes Treatment Notes Treatment Clinical Notes Section Notes 04/24/2024 Gastrointestinal hemorrhage associated with gastric ulcer (ICD-10 - K25.4) Keep follow up appt. with Dr. Dean 04/24/2024 PUD (peptic ulcer disease) (ICD-10 - K27.9) 06/04/2024 Anemia due to GI blo od loss (ICD-10 - D50.0) 06/04/2024 Primary hypertension (ICD-10 - I10) 07/12/2024 Encounter for Depart ment of Transportation (DOT) examination [place] license (ICD-10 - Z02.4) 07/30/2024 Other chronic pain (ICD-10 - G89.29) 07/30/2024 Low back pain, unspecified (ICD-10 - M54.50) Home exercise program provided to patient 10/11/2024 Other chronic pain (ICD-10 - G89.29) 10/11/2024 Low back pain, unspecified (ICD-10 - M54.50) 10/29/2024 Low back pain, unspecified (ICD-10 - M54.50) 10/29/2024 Degeneration of intervertebral disc of lumbar region with discogenic back pain (ICD-10 - M51.360) 11/26/2024 Coronary artery dise ase involving [place] coronary artery of [place] heart without angina pectoris (ICD-10 - I25.10) 11/26/2024 Pure hypercholesterolemia (ICD-10 - E78.00) 11/26/2024 Primary hypertension (ICD-10 - I10) 10/11/2024 Degeneration of intervertebral disc of lumbar region with discogenic back pain (ICD-10 - M51.360) 10/29/2024 Other chronic pain (ICD-10 - G89.29) 06/04/2024 Pure hypercholesterolemia (ICD-10 - E78.00) 04/24/2024 Anemia due to GI blo od loss (ICD-10 - D50.0) 04/24/2024 H. pylori infection (ICD-10 - A04.8) 11/26/2024 BMI 27.0-27.9,adult (ICD-10 - Z68.27) 06/04/2024 Postoperative hypothyroidism (ICD-10 - E89.0) 06/04/2024 Chronic gout of mult iple sites, unspecified cause (ICD-10 - M1A.09X0) 06/04/2024 Encounter for immunization (ICD-10 - Z23) Plan Of Treatment Pending Test Test Name Order Date MRI : Spine, Lumbosacral, without contra st 10/11/2024 Next Appt Details Provider Name:Elvin Mckinley ry, 05/29/2025 09:00:00 AM, [address], [address], [place], [id number], Insurance Providers Payer Name Payer Address Payer Phone Subscriber Number Group Number Insured Name Patient Relationship to Insured Coverage Start Date Coverage End Date [employer] (MEDICAR E) [address] [address] [place] [address] [id number] AIDEN MARIE Self - patient is the insured Medical (General) History Medical History History ICD Code Coronary Artery Disease Arthritis Gout Hypothyroidism Hyperlipidemia Allergic Rhinitis Erectile dysfunction peptic ulcer disease, GI Bleed 03/2024, treated at [facility] H Pylori positive, 2023 chronic back pain Surgical History Surgery Date(Month/Year) [facility] 1984 Percutaneous coronary interv ention with 1 stent placed, [facility] [place] 2004 Percutaneous coronary intervention 4 renuka nts placed at [facility] 2022 EGD - treatment of bleeding stomach vu mireles at [facility] 03/2024 Colonoscopy, Dr. Dean 10/28/2024
--- OUTSIDE RECORDS SUMMARY | 2024-12-06 13:55 | XMS_ITS | Clinical Summary ---
Author Organization [facility] Address [address] [place] [address] Care Team Providers Care Dispensing Operator Name Role Phone Elvin Rasmussen MD Primary Care Provider + [phone] Social History Tobacco Use Types Packs/Day Years Used Date Smoking Tobacco: Never Assessed Sex and Gender Information Value Date Recorded Sex Assigned at Not on file Legal Sex Male 7:39 PM EDT Gender Identity Not on file Sexual Orientation Not on file Plan of Treatment Health Maintenance Due Date Last Done Comments [facility]-Depression Screening 1957 [facility]-Hepatitis C Screening 1955 [facility]-Medicare Annual Wellness (AWV) 1955 [facility]-Infant/Child/Adol SDOH Screenings 1955 [facility]- SDOH Screenings 11/09/1975 [facility]-Adult SDOH Screenings 11/09/1975 [facility]-DTaP,Tdap,and Td Vaccine s (1 - Tdap) 1976 CT Colonography 2002 Colonoscopy 2002 FIT-DNA 2002 FIT 2002 FOBT 2002 Sigmoidoscopy 2002 [facility]-Colorectal Cancer Screening 2002 [facility]-Pneumococcal Vaccine: 50 + Years (1 of 1 - PCV) 11/09/2007 [facility]-Zoster Vaccines (1 of 2) 11/09/2007 [id number] Vaccine ( season) 2024 06/16/2021, 11/04/2020, 10/07/2020 [facility]-Influenza Vaccine (Seaso n Ended) 2025 04/23/2021 [facility]-RSV Vaccine: 60+ Years o r (1 - 1-dose 75+ series) 2032 HPV Vaccines Aged Out No longer eligi ble based on patient's age to complete this topic [facility]-HIB Vaccines Aged Out No longer e [...] patient's age to complete this topic Insurance [facility] MEDICARE Care Teams Dispensing Operator Relationship Specialty Start Date End Date Elvin Rasmussen MD [address] [facility] [address] [place] [phone] PCP - General 02/14/23
[2024-12-06 14:01] VITALS: BP 112/60; PULSE 74; RESP 18; O2SAT 98; BMI 27.5
== END 2024-12-06 23:59 | disposition home or self-care (01) ==
LOC: SC.PAIN 13:53
PROVIDERS: PCP Family Medicine; Visit Provider Nurse Practitioner Family
DX: M47.816 Spondylosis without myelopathy or radiculopathy, lumbar region (principal); M51.360 Other intervertebral disc degeneration, lumbar region with discogenic back pain only
CPT/HCPCS: 99202; G0463

== ENCOUNTER 2024-12-31 14:01 | Day surgery (SDC) | payer MEDICARE, OTHER, SELFPAY ==
[2024-12-31 14:20] VITALS: BP 126/64; PULSE 68; RESP 18; O2SAT 98; BMI 28.7
--- NOTE | 2024-12-31 14:28 | P.PCN_ITS ---
Procedure Date: 12/31/24 Time: 14:15 Anesthesiologist:: Roberto Gomes CRNA Complications:: None Pre-procedure Diagnosis:: Degenerative disc lumbar spine multilevels. Lumbar radiculopathy. Lumbar spondylosis. Multilevel lumbar facet arthropathy Post-procedure Diagnosis:: Same. Indications for Procedure:: Patient is a very pleasant 69-year-old male who comes our clinic today for diagnostic ROUND ONE lumbar medial branch blocks/facet injections bilateral L4- 5, L5-S1 with local anesthesia. Patient describes low lumbar back pain is constant, dull, aching. 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 He rates his pain 7/10. Procedure Details:: Informed consent was obtained and the risk and benefits of the procedure was explained to the patient. Patient was taken to the procedure room where noninvasive monitors were placed, including noninvasive blood pressure cuff as well as pulse oximeter. The area over the lumbar spine was cleansed using chlorhexidine as a cleansing solution. I anesthetized the skin and subcutaneous tissues with 1% Lidocaine. I placed 22-gauge spinal needles into the facet joint/ medial branches of L4-L5, and L5-S1 bilaterally. Needle placement was confirmed with fluoroscopy. After confirmation of needle placement, each site was injected with 1 mL of 1% lidocaine and 0.25 % Marcaine 1 mL. Patient tolerated the procedure without difficulty. There were no complications. Plan and Disposition:: Patient was discharged without incident.
[2024-12-31] MEDS: BUPIVACAINE 0.25% 10ML INJ 25 MG IJ (14:31)
[2024-12-31 14:32] VITALS: BP 126/64; PULSE 68; RESP 18; O2SAT 98
[2024-12-31] MEDS: LIDOCAINE 1% 5ML PF VIAL 5 ML (14:32)
[2024-12-31 14:34] VITALS: BP 126/64; PULSE 68; RESP 18; O2SAT 98
[2024-12-31 14:50] VITALS: BP 124/68; PULSE 67; RESP 18; O2SAT 95
== END 2024-12-31 14:50 | disposition home or self-care (01) ==
PROVIDERS: PCP Family Medicine; Visit Provider Nurse Anesthetist, Certified Registered
DX: M47.816 Spondylosis without myelopathy or radiculopathy, lumbar region (principal); M51.360 Other intervertebral disc degeneration, lumbar region with discogenic back pain only; I25.10 Atherosclerotic heart disease of native coronary artery without angina pectoris; E78.5 Hyperlipidemia, unspecified; I10 Essential (primary) hypertension; I45.2 Bifascicular block; Z87.891 Personal history of nicotine dependence; E89.0 Postprocedural hypothyroidism; Z79.890 Hormone replacement therapy; Z79.02 Long term (current) use of antithrombotics/antiplatelets; Z79.899 Other long term (current) drug therapy
CPT/HCPCS: 64493; 64494; J0665; J2003

== ENCOUNTER 2025-01-10 14:29 | Outpatient (POV) | payer MEDICARE, OTHER, SELFPAY ==
--- OUTSIDE RECORDS SUMMARY | 2024-11-26 06:00 | XMS_ITS ---
Author Organization [facility] Address [address] [place] [phone] Care Team Providers Care Anthropologist Physical Name Role Phone Elvin Rasmussen Primary Care Provider [phone] Allergies No Known Allergies Results Component Value Reference Range Notes P-Comprehensive Metabolic Pa franchesca (CMP) Reviewed date:11/27/2024 10:27:54 AM Interpretation:Normal Performing Lab: Notes/Report: Test performed by [facility] [address] [place] [address] , [address], [place] [address] Jimmy Osorio MD, Fbi Investigator CLIA: [id number] Sodium 139 135-145 mmol/L Potassium 3.9 3.5-5.3 [...] Interpretation:Normal Performing Lab: Notes/Report: Test performed by [facility] [address] [facility] , [address], [place] [address] Jimmy Osorio MD, Fbi Investigator CLIA: [id number] Cholesterol 113 <200 mg/dL Triglycerides 46 <150 [...] Provider Diagnosis [facility] [address] [facility] [address] [place], [place] [phone] 11/26/2024 Elvin Rasmussen Coronary artery dise ase involving [place] coronary artery of [place] heart without angina pectoris I25.10 ; Pure hypercholesterolemia E78.00 ; Primary hypertension I10 and BMI 27.0-27.9,adult Z68.27 Assessments Encounter Date Diagnosis (ICD Code) Assessment Notes Treatment Notes Treatment Clinical Notes Section Notes 11/26/2024 Coronary artery dise ase involving [place] coronary artery of [place] heart without angina pectoris (ICD-10 - I25.10) [...] 05/29/2025 09:00:00 AM, [address] [facility], [address] [place] [address], [phone], Progress Notes * AIDEN MARIEDOB:1955 (69 yo M)Acc No.[id number]:11/26/2024 Progress Notes Patient: AIDEN SON Provider: Sarita Rasmussen M.D. :1955 A ge:69 Y S ex:Male Date:11/26/2024 Address:[address] [place], [place] [phone] Subjective: * Chief Complaints: * 1 . [...] ulcer disease, GI Bleed 03/2024, treated at [facility], H Pylori positive, 2023, Chronic back pain. * Surgical History: t hyroidectomy - [facility] 1984, Percutaneous coronary intervention with 1 stent placed, [place] in [place] 2004, Percutaneous coronary intervention 4 stents placed at [facility] 2022, EGD - treatment of bleeding stomach ulcer, at [facility] 03/2024, Colonoscopy, Dr. Dean 10/28/2024. * Hospitalization/Major [...] Assessment: 1. C oronary artery disease involving [place] coronary artery of [place] heart without angina pectoris - I25.10 (Primary) 2 . P ure hypercholesterolemia - E78.00 ?3. P rimary hypertension - I10 4 . B MN 27.0-27.9,adult - Z68.27 ? Plan: * Treatment: [...] * Images: Billing Information: * Visit Code: 72064 Office Visit, Est Pt., Level 4. * Procedure Codes: G2211 Complex e/m visit add on. 1036F TOBACCO NON-USER. G8950 PREHTN/HTN BP DOC INDCD F/U DOC. G8752 MOST RECENT SYSTOLIC BP < 140MM HG. G8754 MOST RECENT DIASTOLIC BP < 90MM HG. G8420 BMI<30 AND >=22 CALC & DOCU. 3017F COLORECTAL CA SCREEN DOC REV. * Electronic signature of Crissy Rasmussen MD on 01/10/2025 at 02:32 PM EDT Sign off status: Pending * Provider: Sarita Rasmussen M.D. Date: 0 11/26/2024 Generated for Kelly denise/Barbara/Kurtisitting on: 0 01/10/2025 02:32 PM EDT History and Physical Notes * [...]
--- OUTSIDE RECORDS SUMMARY | 2025-01-10 14:32 | XMS_ITS | Clinical Summary ---
Author Organization [facility] Address [address] [place] [address] Care Team Providers Care Business Development Intern Name Role Phone Elvin Rasmussen MD Primary Care Provider + [phone] Social History Tobacco Use Types Packs/Day Years [...] 11/09/2007 [facility]-Zoster Vaccines (1 of 2) 11/09/2007 [id number] Vaccine ( season) 2024 06/16/2021, 11/04/2020, 10/07/2020 [facility]-Influenza Vaccine (#1) 2025 04/23/2021 [facility]-RSV Vaccine: 60+ Years o [...] patient's age to complete this topic Insurance [facility] MEDICARE Care Teams Business Development Intern Relationship Specialty Start Date End Date Elvin Rasmussen MD [address] [facility] [address] [place] [phone] PCP - General 02/14/23
--- OUTSIDE RECORDS SUMMARY | 2025-01-10 14:32 | XMS_ITS | Patient Health Record ---
[facility] [address] [facility] [address] [place] [id number] Care Team Providers Care Mill Attendant Name Role Phone Elvin Rasmussen Primary Care Provider Allergies No Known Allergies Results Component Value Reference Range Notes colonoscopy Reviewed date:12/03/2024 10:41:20 AM Interpretation:polyps, hemorrhoids, repeat 5-10 yrs Performing Lab: Notes/Report: polyps, hemorrhoids, repeat 5-10 yrs result: polyps, hemorrhoids repeat study: 5-10 yrs P-Lipid Panel Reviewed date:11/27/2024 10:27:54 AM Interpretation:Normal Performing Lab: Notes/Report: Test performed by [facility] [address] [place] [address] , [address], [place] [address] Jimmy Osorio MD, Geophysical Laboratory Chief CLIA: [id number] Cholesterol 113 <200 mg/dL Triglycerides 46 <150 [...] Results: 64 Units: mg/dL % Change: +39% P-Comprehensive Metabolic Pa franchesca (CMP) Reviewed date:11/27/2024 10:27:54 AM Interpretation:Normal Performing Lab: Notes/Report: Test performed by [facility] [address] [facility] [address], [place] [address] Jimmy Osorio MD, Geophysical Laboratory Chief CLIA: [id number] Sodium 139 135-145 mmol/L Potassium 3.9 3.5-5.3 [...] 1.1 <0.2-1.2 mg/dL A/G Ratio 1.6 1.1-2.5 P-Uric Acid Reviewed date:06/05/2024 12:29:05 PM Interpretation:Normal Performing Lab: Notes/Report: Test performed by [facility] [address] , [address], [place] [address] Jimmy Osorio MD, Geophysical Laboratory Chief CLIA: [id number] Uric Acid 4.5 3.4-8.0 mg/dL P-Microalbumin/Creatinine, R andom Urine Sample Reviewed date:06/05/2024 12:29:05 PM Interpretation:Normal Performing Lab: Notes/Report: Test performed by [facility] [address] , [address], [place] [address] Jimmy Osorio MD, Geophysical Laboratory Chief CLIA: [id number] Albumin/Creatinine Ratio, Urine <6.0 0-30 ug/mg Microalbumin, Urine, Random <0.3 Creatinine, Urine 49.2 P-TSH Reviewed date:06/05/2024 12:29:05 PM Interpretation:Normal Performing Lab: Notes/Report: Test performed by [facility] [address] , [address], [place] [address] Jimmy Osorio MD, Geophysical Laboratory Chief CLIA: [id number] TSH 3.26 0.43-5.25 mU/L P-Lipid Panel Reviewed date:06/05/2024 12:29:05 PM Interpretation:Normal Performing Lab: Notes/Report: Test performed by [facility] [address], [place] [address] Jimmy Osorio MD, Geophysical Laboratory Chief CLIA: [id number] Cholesterol 99 <200 mg/dL Triglycerides 44 <150 [...] Interpretation:Normal Performing Lab: Notes/Report: Test performed by [facility], [address] , [address], [place] [address] Jimmy Osorio MD, Geophysical Laboratory Chief CLIA: [id number] Thyroxine Free (free T4) 1.22 0.86-1.76 ng/dL P-Comprehensive Metabolic Pa franchesca (CMP) Reviewed date:06/05/2024 12:29:05 PM Interpretation:satisfactory Performing Lab: Notes/Report: Test performed by [facility] [address] [place] [address] , [address], [place] [address] Jimmy Osorio MD, Geophysical Laboratory Chief CLIA: [id number] Sodium 142 135-145 mmol/L Potassium 3.8 3.5-5.3 [...] - 38 platlet 195 100 - 400 H-CMP Reviewed date:04/17/2024 08:26:56 [...] 9.3 14.1-18.0 g/dL HCT 27.7 42.0-52.0 % X ray : Spine, lumbosacral Reviewed date:07/31/2024 01:03:32 PM Interpretation:mild degenerative changes Performing Lab: Notes/Report: mild degenerative changes Urinalysis - Inhouse Reviewed date:07/12/2024 04:24:16 PM Interpretation: Performing Lab: Notes/Report: Color/Clarity yellow/clear Leuk Neg Nitrite Neg Urobili 3.2 Protein Neg pH 6.0 Blood Neg Sp. Gr. 1.015 Ketone Neg Bili Neg Gluc Neg CBC Fingerstick (in house) Reviewed date:04/24/2024 12:51:27 [...] - 38 plat 249 100 - 400 Reason For Referral Diagnosis 1 Low back [...] Garza 2024 08:28:02 AM > faxed to [facility], Araceli Garza 11/18/2024 11:49:49 AM > spoke to Nona at pain management; she will call today to get the patient scheduled Referral Priority Routine Medications Medication SIG (Take, Route, Frequency, Duration) Notes Start Date End Date Status Prasugrel HCl 10 MG as directed Orally Active miSOPROStol 200 MCG 1 tablet Orally Four times a day; Duration: 30 day(s) Active Losartan Potassium-HCTZ 50-12.5 MG 1 [...] tablet Orally Once a day 04/24/2024 Active Levothyroxine Sodium 150 MCG 1 tab(s) or ally once a day; Duration: 90 days Active Sildenafil Citrate 20 MG 1 tab(s) orally as needed; Duration: 30 days Active Bismuth/Metronidaz/Tetracycl in 140-125-125 MG 3 capsules after meals and at bedtime Orally Four times a day; Duration: 10 day(s) Active Immunizations Vaccine Route Administration [...] Problem Status W/U Status Risk Notes Problem Chronic pain (06339584) Other chronic pain (G89.29) Active confirmed Problem Atherosclerotic hear t disease of makah coronary artery without angina pectoris (410798842858664) Coronary artery disease involving makah coronary artery of makah heart without angina pectoris (I25.10) Active confirmed Problem Anemia (011274811) Anemia, unspe cified type (D64.9) Active confirmed Problem Hyperlipidaemia (05145669) Hyperlipidemia, unspecified hyperlipidemia type (E78.5) Active confirmed Problem Postoperative hypothyroidism (62794556) Postoperative hypothyroidism (E89.0) Active confirmed Problem Chronic gastric ulce r with hemorrhage but without obstruction (92179355) Gastrointestinal hemorrhage associated with gastric ulcer (K25.4) Active confirmed Problem Anemia due to chroni c blood loss (097452991) Anemia due to GI blood loss (D50.0) Active confirmed Problem Atherosclerotic hear t disease of makah coronary artery without angina pectoris (388007359544563) Atherosclerosis of makah coronary artery without angina pectoris, unspecified whether makah or transplanted heart (I25.10) Active confirmed Problem Pure hypercholesterolemia (539834853) Pure hypercholesterolemia (E78.00) Active confirmed Problem Gastric ulcer withou t hemorrhage, without perforation AND without obstruction (72033325) Gastric ulcer, unspecified chronicity, unspecified whether gastric ulcer hemorrhage or perforation present (K25.9) Active confirmed Problem Peptic ulcer disease (32298219) PUD (peptic ulcer disease) (K27.9) Active confirmed Problem Chronic gouty arthritis (34912619) Chronic gout of multiple sites, unspecified cause (M1A.09X0) Active confirmed Problem Allergic rhinitis (57272304) Allergic rhinitis, unspecified seasonality, unspecified trigger (J30.9) Active confirmed Problem Primary hypertension (37460355) Primary hypertension (I10) Active confirmed Vital Signs Heart Rate 62 /min 11/26/2024 Blood pressure diastolic 70 mm Hg 11/26/2024 Height 70 in 11/26/2024 Blood pressure systolic 122 mm Hg 11/26/2024 Weight 192.6 lbs 11/26/2024 BMI 27.63 kg/m2 11/26/2024 Encounters Encounter Location Date Provider Diagnosis [facility] [address] [facility] [address] [place] [id number] 04/24/2024 Elvin Herndon Gastrointestinal hem orrhage associated with gastric ulcer K25.4 ; PUD (peptic ulcer disease) K27.9 ; Anemia due to GI blood loss D50.0 and H. pylori infection A04.8 [facility] [address] [place] [id number] 06/04/2024 Elvin Herndon Primary hypertension I10 ; Anemia due to GI blood loss D50.0 ; Pure hypercholesterolemia E78.00 ; Postoperative hypothyroidism E89.0 ; Chronic gout of multiple sites, unspecified cause M1A.09X0 and Encounter for immunization Z23 [facility] [address] [place] [id number] 07/12/2024 Elvin Herndon Encounter for Depart ment of Transportation (DOT) examination for [place] license Z02.4 [facility] [address] [facility] [address] [place] [id number] 07/30/2024 Elvin Herndon Other chronic pain G 89.29 and Low back pain, unspecified M54.50 [facility] [address] [place] [id number] 11/26/2024 Elvin Herndon Coronary artery dise ase involving makah coronary artery of makah heart without angina pectoris I25.10 ; Pure hypercholesterolemia E78.00 ; Primary hypertension I10 and BMI 27.0-27.9,adult Z68.27 [facility] [address] [facility] [address] [place], [place] [id number] 04/22/2024 Elvin Herndon [facility] [address] [place] [id number] 07/31/2024 Elvin Herndon [facility] [address] [place] [id number] 10/11/2024 Elvin Herndon Other chronic pain G 89.29 ; Low back pain, unspecified M54.50 and Degeneration of intervertebral disc of lumbar region with discogenic back pain M51.360 [facility] [address] [facility] [address] [place] [id number] 10/29/2024 Levin Herndon Low back pain, unspe cified M54.50 ; [...] M51.360) 11/26/2024 Coronary artery dise ase involving makah coronary artery of makah heart without angina pectoris (ICD-10 - I25.10) [...] [address], [address], [place], [place], [id number], Insurance Providers Payer Name Payer Address Payer Phone Subscriber Number Group Number Insured Name Patient Relationship to Insured Coverage Start Date Coverage End Date [employer] (MEDICAR E) [address] [address] [place] [address] [id number] TIERRA AIDEN Self - patient is the insured Medical (General) History Medical History History ICD Code Coronary Artery Disease Arthritis Gout Hypothyroidism Hyperlipidemia Allergic Rhinitis Erectile dysfunction peptic ulcer disease, GI Bleed 03/2024, treated at [facility] H Pylori positive, 2023 chronic back pain Surgical History Surgery Date(Month/Year) thyroidectomy - [facility] 1985 Percutaneous coronary interv ention with 1 stent placed, [facility] [place] 2004 Percutaneous coronary intervention 4 renuka nts placed at [facility] 2022 EGD - treatment of bleeding stomach vu mireles at [facility] 03/2024 Colonoscopy, Dr. Dean 10/28/2024
[2025-01-10 14:36] VITALS: BP 113/64; PULSE 82; RESP 18; O2SAT 98; BMI 28.7
--- NOTE | 2025-01-10 15:04 | EXP.PAIN.SOA ---
[facility] Disclaimer: The information contained in this section may have been updated after the patient was seen, as this information can be updated by other users. Medical History Ex-smoker History of gout Plantar fasciitis, bilateral Bifascicular block Coronary artery disease Hyperlipidemia Abnormal computed tomography angiography of heart Hypertension Surgical History History of esophagogastroduodenoscopy (EGD) History of colonoscopy History of thyroidectomy History of cardiac cath Family History Other Diabetes Family history of acute congestive heart failure Family history of acute heart failure Social History Smoking Status: Former smoker alcohol intake: former substance use type: denies use current occupational status: other Travel in the last 8 weeks?: None PM Subjective & Objective Subjective Subjective:: Patient is a pleasant 69-year-old male who presents today for follow-up of his first lumbar medial branch block bilaterally L4-L5 and L5-S1 on 12/31/2024. Today he states he did not notice any difference with this injection and that he is still having the same pain however he feels like today it is more along the right side. He states it is still worse with certain movements such as bending or lifting. He states overall he does not really have any problems when he is lying down or sitting. Patient has had x-ray imaging. He denies any other changes. Patient did get the compounded cream however felt like this did not seem to make much difference. His Jseus has been reviewed and is appropriate. Review of Systems: General: No recent weight changes, no fever, no sleep disturbances Respiratory: No cough, no shortness of air, no recurring pulmonary infections Cardiovascular/peripheral vascular: No chest pain, no palpitations, no edema, no shortness of breath Gastrointestinal: No new onset incontinence, normal bowel movements reported Genitourinary: No new onset incontinence Musculoskeletal: Low back pain Psychiatric: [Normal mood/affect] Neurological: [Denies weakness in extremities], [denies balance issues] Pain at rest (0-10 scale): 5 Objective Objective:: Physical Exam: General: Alert and oriented x3, no acute distress, pleasant and cooperative Lungs: Respirations even and unlabored, symmetrical chest expansion Eyes: PERRL Musculoskeletal: Flexion and extension of lumbar [spine] somewhat guarded secondary to pain Neurological: Speech clear, no gross sensory deficit Has patient had previous pain injection?: Yes Percent improvement in pain since last injection: Minimal Conservative treatment options previously tried: Home exercise plan Length of treatment: Longer than 12 weeks Meds Home Medications and Allergies Home Medications ?Medication ?Instructions ?Recorded ?Confirmed ?Type levothyroxine 150 mcg tablet 150 mcg PO DAILY 02/02/23 01/10/25 History losartan 50 mg-hydrochlorothiazide 1 tab PO DAILY blood pressure #90 03/14/24 01/10/25 Rx 12.5 mg tablet tabs atorvastatin 80 mg tablet 80 mg PO DAILY 04/16/24 01/10/25 History amlodipine 5 mg tablet 5 mg PO DAILY #90 tabs 09/05/24 01/10/25 Rx prasugrel HCl 10 mg tablet 10 mg PO DAILY #90 tabs 10/08/24 01/10/25 Rx (Effient) New Prescriptions to Start Prescriptions: Allergies Allergy/AdvReac Type Severity Reaction Status Date / Time No Known Allergies Allergy Verified 10/28/24 12:29 Assessment and Plan *Assessment and plan (1) Low back pain: Status: Acute Category: Medical Code(s): M54.50 - Low back pain, unspecified (2) Lumbar facet arthropathy: Status: Acute Category: Medical Code(s): M47.816 - Spondylosis without myelopathy or radiculopathy, lumbar region (3) Degenerative disc disease (DDD) of lumbar region with axial back pain without leg pain: Status: Acute Category: Medical Code(s): M51.360 - Other intervertebral disc degeneration, lumbar region with discogenic back pain only Plan I did discuss with the patient today that I would like to proceed forward with an MRI without contrast of his lumbar spine. Patient is having additional pain that does appear to be higher than where her previous injections were. We did discuss that we may need to change the location of the facet injections. We will also print off today physician guided lumbar exercises for him to work on at home. Patient will return to clinic in 1 month following his advanced imaging. Patient agrees with this plan of care. Patient has been instructed to contact the clinic with any concerns before the next appointment. Dr. Pratt has reviewed this note and agrees with this plan of care. This note was dictated using voice recognition software and make contain errors or omissions. All injections are used with Lidocaine, Bupivacaine and dexamethasone. Occasionally urine drug screen is needed to verify patient's compliance with our office pain contract. This is ordered based off specific treatments related to chronic pain with the potential to abuse certain medications.
== END 2025-01-10 23:59 | disposition home or self-care (01) ==
PROVIDERS: PCP Family Medicine; Visit Provider Nurse Practitioner Family
DX: M47.816 Spondylosis without myelopathy or radiculopathy, lumbar region (principal); M51.360 Other intervertebral disc degeneration, lumbar region with discogenic back pain only
CPT/HCPCS: 99212; G0463

== ENCOUNTER 2025-01-15 16:03 | Outpatient (CLI) | payer MEDICARE, OTHER, SELFPAY ==
--- OUTSIDE RECORDS SUMMARY | 2025-01-15 16:06 | XMS_ITS | Clinical Summary ---
Author Organization [facility] Address [address] [place] [address] Care Team Providers Care Primary Health Care Nurse Name Role Phone Elvin Rasmussen MD Primary Care Provider + [phone] Social History Tobacco Use Types Packs/Day Years [...] 11/09/2007 [facility]-Zoster Vaccines (1 of 2) 11/09/2007 [id number] Vaccine ( season) 2024 06/16/2021, 11/04/2020, 10/07/2020 [...] patient's age to complete this topic Insurance [facility] MEDICARE Care Teams Primary Health Care Nurse Relationship Specialty Start Date End Date Elvin Rasmussen MD [address] [facility] [address] [place] [id number] PCP - General 02/14/23
--- OUTSIDE RECORDS SUMMARY | 2025-01-15 16:06 | XMS_ITS | Patient Health Record ---
[facility] Address [address] [place] [id number] Care Team Providers Care Navigating Officer Name Role Phone Elvin Rasmussen Primary Care Provider Allergies No Known Allergies Results Component Value Reference Range Notes Urinalysis - Inhouse Reviewed date:07/12/2024 04:24:16 PM Interpretation: Performing Lab: Notes/Report: Color/Clarity yellow/clear Leuk Neg Nitrite Neg Urobili 3.2 Protein Neg pH 6.0 Blood Neg Sp. Gr. 1.015 Ketone Neg Bili Neg Gluc Neg CBC Venipuncture (in house) Reviewed date:06/05/2024 12:29:05 [...] - 38 platlet 195 100 - 400 P-Comprehensive Metabolic Pa franchesca (CMP) Reviewed date:06/05/2024 12:29:05 PM Interpretation:satisfactory Performing Lab: Notes/Report: Test performed by [facility] [address] [place] [address] , [address], [place] [address] Jimmy Osorio MD, Construction Equipment Operator CLIA: [id number] Sodium 142 135-145 mmol/L Potassium 3.8 3.5-5.3 [...] 0.7 <0.2-1.2 mg/dL A/G Ratio 1.8 1.1-2.5 P-T4 Free (thyroxine) Reviewed date:06/05/2024 12:29:05 PM Interpretation:Normal Performing Lab: Notes/Report: Test performed by [facility] [address] [place] [address] , [place] [address] Jimmy Osorio MD, Construction Equipment Operator CLIA: [id number] Thyroxine Free (free T4) 1.22 0.86-1.76 ng/dL P-Lipid Panel Reviewed date:06/05/2024 12:29:05 PM Interpretation:Normal Performing Lab: Notes/Report: Test performed by [facility] [address] [place] [address] , [address], [place] [address] Jimmy Osorio MD, Construction Equipment Operator CLIA: [id number] Cholesterol 99 <200 mg/dL Triglycerides 44 <150 [...] Results: 46 Units: mg/dL % Change: +15% P-TSH Reviewed date:06/05/2024 12:29:05 PM Interpretation:Normal Performing Lab: Notes/Report: Test performed by [facility] [address] [place] [address] , [place] [address] Jimmy Osorio MD, Construction Equipment Operator CLIA: [id number] TSH 3.26 0.43-5.25 mU/L P-Microalbumin/Creatinine, R andom Urine Sample Reviewed date:06/05/2024 12:29:05 PM Interpretation:Normal Performing Lab: Notes/Report: Test performed by [facility] [address] [place] [address] , [place] [address] Jimmy Osorio MD, Construction Equipment Operator CLIA: [id number] Albumin/Creatinine Ratio, Urine <6.0 0-30 ug/mg Microalbumin, Urine, Random <0.3 Creatinine, Urine 49.2 P-Uric Acid Reviewed date:06/05/2024 12:29:05 PM Interpretation:Normal Performing Lab: Notes/Report: Test performed by [facility] [address] , [address], [place] [address] Jimmy Osorio MD, Construction Equipment Operator CLIA: [id number] Uric Acid 4.5 3.4-8.0 mg/dL CBC Fingerstick (in house) Reviewed date:04/24/2024 12:51:27 [...] - 38 plat 249 100 - 400 X ray : Spine, lumbosacral Reviewed date:07/31/2024 01:03:32 PM Interpretation:mild degenerative changes Performing Lab: Notes/Report: mild degenerative changes P-Comprehensive Metabolic Pa franchesca (CMP) Reviewed date:11/27/2024 10:27:54 AM Interpretation:Normal Performing Lab: Notes/Report: Test performed by [facility] [address] [place] [address] [address], [place] [address] Jimmy Osorio MD, Construction Equipment Operator CLIA: [id number] Sodium 139 135-145 mmol/L Potassium 3.9 3.5-5.3 [...] Interpretation:Normal Performing Lab: Notes/Report: Test performed by [facility] [address], [place] [address] Jimmy Osorio MD, Construction Equipment Operator CLIA: [id number] Cholesterol 113 <200 mg/dL Triglycerides 46 <150 [...] Results: 64 Units: mg/dL % Change: +39% M-Hemoglobin and Hematocrit Reviewed date:04/17/2024 08:26:56 AM [...] AGRATIO 1.7 1.1-1.8 ALP 36 38-126 U/L colonoscopy Reviewed date:12/03/2024 10:41:20 AM Interpretation:polyps, hemorrhoids, repeat 5-10 yrs Performing Lab: Notes/Report: polyps, hemorrhoids, repeat 5-10 yrs result: polyps, hemorrhoids repeat study: 5-10 yrs Reason For Referral Diagnosis 1 Low back pain, unspe cified (M54.50) Diagnosis 2 Degeneration of inte rvertebral disc of lumbar region with discogenic back pain (M51.360) Diagnosis 3 Other chronic pain ( G89.29) Referral Organization [facility] Referring Provider First Name Elvin Referring Provider Last Name Grady Referring Provider Speciality Family Pra ctice Referred Provider Kobe Pratt Referred Provider Specialty Pain Managem ent General Notes Araceli Garza 2024 08:28:02 AM > faxed to [facility] Pain [facility], Araceli Garza 11/18/2024 11:49:49 AM [...] W/U Status Risk Notes Problem Chronic pain (16710832) Other chronic pain (G89.29) Active confirmed Problem Atherosclerotic hear t disease of [place] coronary artery without angina pectoris (170186363062354) Coronary artery disease involving [place] coronary artery of [place] heart without angina pectoris (I25.10) Active confirmed Problem Anemia (190572461) Anemia, unspe cified type (D64.9) Active confirmed Problem Hyperlipidaemia (53743465) Hyperlipidemia, unspecified hyperlipidemia type (E78.5) Active confirmed Problem Postoperative hypothyroidism (25907652) Postoperative hypothyroidism (E89.0) Active confirmed Problem Chronic gastric ulce r with hemorrhage but without obstruction (69438673) Gastrointestinal hemorrhage associated with gastric ulcer (K25.4) Active confirmed Problem Anemia due to chroni c blood loss (077319609) Anemia due to GI blood loss (D50.0) Active confirmed Problem Atherosclerotic hear t disease of [place] coronary artery without angina pectoris (500142809077699) Atherosclerosis of [place] coronary artery without angina pectoris, unspecified whether [place] or transplanted heart (I25.10) Active confirmed Problem Pure hypercholesterolemia (942557665) Pure hypercholesterolemia (E78.00) Active confirmed Problem Gastric ulcer withou t hemorrhage, without perforation AND without obstruction (22541094) Gastric ulcer, unspecified chronicity, unspecified whether gastric ulcer hemorrhage or perforation present (K25.9) Active confirmed Problem Peptic ulcer disease (78229167) PUD (peptic ulcer disease) (K27.9) Active confirmed Problem Chronic gouty arthritis (62961308) Chronic gout of multiple sites, unspecified cause (M1A.09X0) Active confirmed Problem Allergic rhinitis (78731630) Allergic rhinitis, unspecified seasonality, unspecified trigger (J30.9) Active confirmed Problem Primary hypertension (99071319) Primary hypertension (I10) Active confirmed Vital Signs Heart Rate 62 /min 11/26/2024 Blood pressure diastolic 70 mm Hg 11/26/2024 Height 70 in 11/26/2024 Blood pressure systolic 122 mm Hg 11/26/2024 Weight 192.6 lbs 11/26/2024 BMI 27.63 kg/m2 11/26/2024 Encounters Encounter Location Date Provider Diagnosis [facility] [address] [facility] [address] [place] [id number] 04/24/2024 Elvin [place] Gastrointestinal hem orrhage associated with gastric ulcer K25.4 ; PUD (peptic ulcer disease) K27.9 ; Anemia due to GI blood loss D50.0 and H. pylori infection A04.8 [facility] [address] [place] [id number] 06/04/2024 Elvin [place] Primary hypertension I10 ; Anemia due to GI blood loss D50.0 ; Pure hypercholesterolemia E78.00 ; Postoperative hypothyroidism E89.0 ; Chronic gout of multiple sites, unspecified cause M1A.09X0 and Encounter for immunization Z23 [facility] [address] [place] [id number] 07/12/2024 Elvin [place] Encounter for Depart ment of Transportation (DOT) examination for [place] license Z02.4 [facility] [address] [facility] [address] [place] [id number] 07/30/2024 Elvin [place] Other chronic pain G 89.29 and Low back pain, unspecified M54.50 [facility] [address] [place] [id number] 11/26/2024 Elvin [place] Coronary artery dise ase involving [place] coronary artery of [place] heart without angina pectoris I25.10 ; Pure hypercholesterolemia E78.00 ; Primary hypertension I10 and BMI 27.0-27.9,adult Z68.27 [facility] [address] [facility] [address] [place], [place] [id number] 04/22/2024 Elvin [place] [facility] [address] [place] [id number] 07/31/2024 Elvin [place] [facility] [address] [place] [id number] 10/11/2024 Elvin [place] Other chronic pain G 89.29 ; Low back pain, unspecified M54.50 and Degeneration of intervertebral disc of lumbar region with discogenic back pain M51.360 [facility] [address] [facility] [address] [place] [id number] 10/29/2024 Elvin [place] Low back pain, unspe cified M54.50 ; [...] M51.360) 11/26/2024 Coronary artery dise ase involving [place] coronary artery of [place] heart without angina pectoris (ICD-10 - I25.10) [...] [address], [address], [place], [place], [id number], Insurance Providers Payer Name Payer Address Payer Phone Subscriber Number Group Number Insured Name Patient Relationship to Insured Coverage Start Date Coverage End Date [employer] (MEDICAR E) [address] [address] [place] [phone] [id number] TIERRA AIDEN Self - patient is the insured Medical (General) History Medical History History ICD Code Coronary Artery Disease Arthritis Gout Hypothyroidism Hyperlipidemia Allergic Rhinitis Erectile dysfunction peptic ulcer disease, GI Bleed 03/2024, treated at [facility] H Pylori positive, 2023 chronic back pain Surgical History Surgery Date(Month/Year) thyroidectomy - [facility] 1985 Percutaneous coronary interv ention with 1 stent placed, [facility] [place] 2004 Percutaneous coronary intervention 4 renuka nts placed at [facility] 2022 EGD - treatment of bleeding stomach vu mireles at [facility] 03/2024 Colonoscopy, Dr. Dean 10/28/2024
== END 2025-01-15 23:59 | disposition home or self-care (01) ==
LOC: RAD 16:04
PROVIDERS: PCP Family Medicine; Visit Provider Nurse Practitioner Family
DX: M54.50 Low back pain, unspecified (principal)

== ENCOUNTER 2025-02-10 08:50 | Outpatient (POV) | payer MEDICARE, OTHER, SELFPAY ==
--- OUTSIDE RECORDS SUMMARY | 2025-02-10 09:03 | XMS_ITS | Clinical Summary ---
Author Organization [facility] Address [address] [place] [address] Care Team Providers Care Planning Specialist Name Role Phone Elvin Rasmussen MD Primary Care Provider + [phone] Social History Tobacco Use Types Packs/Day Years [...] 11/09/2007 UKY-Zoster Vaccines (1 of 2) 11/09/2007 [id number] Vaccine ( season) 2024 06/16/2021, 11/04/2020, 10/07/2020 [...] patient's age to complete this topic Insurance [facility] MEDICARE Care Teams Planning Specialist Relationship Specialty Start Date End Date Elvin Rasmussen MD [address] [facility] [address] [place] [phone] PCP - General 02/14/23
[2025-02-10 09:10] VITALS: BP 132/80; PULSE 62; RESP 14; O2SAT 97; BMI 28.7
--- NOTE | 2025-02-10 09:24 | EXP.PAIN.SOA ---
[facility] Disclaimer: The information contained in this section may have been updated after the patient was seen, as this information can be updated by other users. Medical History Ex-smoker History of gout Plantar fasciitis, bilateral Bifascicular block Coronary artery disease Hyperlipidemia Abnormal computed tomography angiography of heart Hypertension Surgical History History of esophagogastroduodenoscopy (EGD) History of colonoscopy History of thyroidectomy History of cardiac cath Family History Other Diabetes Family history of acute congestive heart failure Family history of acute heart failure Social History Smoking Status: Former smoker alcohol intake: former substance use type: denies use current occupational status: other Travel in the last 8 weeks?: None PM Subjective & Objective Subjective Subjective:: Patient is a pleasant 69-year-old male who presents today 1 month follow-up. Today he does rate his pain a 5 out of 10. He denies any new falls or injuries or changes. He is still having that same low back pain and denies any radiating symptoms into his legs. Patient did previously have the first lumbar medial branch block L4-L5 L5-S1 back in December and did feel like it was in the right spot however did not really notice significant improvement. Patient was submitted for MRI imaging however he states that he has a gastric clip from a previous ulcer that the radiology departments stated they did not want to proceed forward with the MRI. Patient would still like to see what is going on. He is prescribed compounded cream. His Jesus has been reviewed and is appropriate. Review of Systems: General: No recent weight changes, no fever, no sleep disturbances Respiratory: No cough, no shortness of air, no recurring pulmonary infections Cardiovascular/peripheral vascular: No chest pain, no palpitations, no edema, no shortness of breath Gastrointestinal: No new onset incontinence, normal bowel movements reported Genitourinary: No new onset incontinence Musculoskeletal: Low back pain Psychiatric: [Normal mood/affect] Neurological: [Denies weakness in extremities], [denies balance issues] Pain at rest (0-10 scale): 5 Objective Objective:: Physical Exam: General: Alert and oriented x3, no acute distress, pleasant and cooperative Lungs: Respirations even and unlabored, symmetrical chest expansion Eyes: PERRL Musculoskeletal: Flexion and extension of lumbar [spine] somewhat guarded secondary to pain, [antalgic gait noted] Neurological: Speech clear, no gross sensory deficit Has patient had previous pain injection?: No Conservative treatment options previously tried: Home exercise plan Length of treatment: Longer than 12 weeks Meds Home Medications and Allergies Home Medications ?Medication ?Instructions ?Recorded ?Confirmed ?Type levothyroxine 150 mcg tablet 150 mcg PO DAILY 02/02/23 02/10/25 History losartan 50 mg-hydrochlorothiazide 1 tab PO DAILY blood pressure #90 03/14/24 02/10/25 Rx 12.5 mg tablet tabs amlodipine 5 mg tablet 5 mg PO DAILY #90 tabs 09/05/24 02/10/25 Rx prasugrel HCl 10 mg tablet 10 mg PO DAILY #90 tabs 10/08/24 02/10/25 Rx (Effient) atorvastatin 80 mg tablet 80 mg PO DAILY #30 tabs 02/06/25 02/10/25 Rx New Prescriptions to Start Prescriptions: Allergies Allergy/AdvReac Type Severity Reaction Status Date / Time No Known Allergies Allergy Verified 10/28/24 12:29 Assessment and Plan *Assessment and plan (1) Low back pain: Status: Acute Category: Medical Code(s): M54.50 - Low back pain, unspecified (2) Lumbar facet arthropathy: Status: Acute Category: Medical Code(s): M47.816 - Spondylosis without myelopathy or radiculopathy, lumbar region (3) Degenerative disc disease (DDD) of lumbar region with axial back pain without leg pain: Status: Acute Category: Medical Code(s): M51.360 - Other intervertebral disc degeneration, lumbar region with discogenic back pain only Plan I did discuss with the patient that I will plan on resubmitting for a CT without contrast of his lumbar spine. We will follow-up with him in 2 weeks following this imaging. Patient agrees with this plan of care. Patient has been instructed to contact the clinic with any concerns before the next appointment. Dr. Pratt has reviewed this note and agrees with this plan of care. This note was dictated using voice recognition software and make contain errors or omissions. All injections are used with Lidocaine, Bupivacaine and dexamethasone. Occasionally urine drug screen is needed to verify patient's compliance with our office pain contract. This is ordered based off specific treatments related to chronic pain with the potential to abuse certain medications.
== END 2025-02-10 23:59 | disposition home or self-care (01) ==
LOC: SC.PAIN 08:50
PROVIDERS: PCP Family Medicine; Visit Provider Nurse Practitioner Family
DX: M47.816 Spondylosis without myelopathy or radiculopathy, lumbar region (principal); M51.360 Other intervertebral disc degeneration, lumbar region with discogenic back pain only
CPT/HCPCS: 99212; G0463

== ENCOUNTER 2025-02-11 14:02 | Outpatient (CLI) | payer MEDICARE, OTHER, SELFPAY ==
--- OUTSIDE RECORDS SUMMARY | 2024-11-26 06:00 | XMS_ITS ---
[facility] [address] [place] [phone] Care Team Providers Care Microfilm Clerk Name Role Phone Elvin Rasmussen Primary Care Provider [phone] Allergies No Known Allergies Results Component Value Reference Range Notes P-Comprehensive Metabolic Pa franchesca (CMP) Reviewed date:11/27/2024 10:27:54 AM Interpretation:Normal Performing Lab: Notes/Report: Test performed by [facility] [address] [place] [address] , [address], [place] [address] Jimmy Osorio MD, Cnc Lathe Programmer CLIA: [id number] Sodium 139 135-145 mmol/L Potassium 3.9 3.5-5.3 mmol/L Chloride 101 97-108 mmol/L CO2 26 22-32 mmol/L Glucose 94 65-99 mg/dL BUN 10 8-23 mg/dL Creatinine 0.82 0.70-1.30 mg/dL Calcium 9.7 8.6-10.4 mg/dL eGFR by Creatinine 96 >59 mL/min/1.73m2 Protein 7.5 6.0-8.3 g/dL Albumin 4.6 3.5-5.3 g/dL Alkaline Phosphatase 96 40-129 IU/L ALT (SGPT) 17 <5-55 IU/L AST (SGOT) 17 <5-46 IU/L Bilirubin, Total 1.1 <0.2-1.2 mg/dL A/G Ratio 1.6 1.1-2.5 P-Lipid Panel Reviewed date:11/27/2024 10:27:54 AM Interpretation:Normal Performing Lab: Notes/Report: Test performed by [facility] [address] [facility] , [address], [place] [address] Jimmy Osorio MD, Cnc Lathe Programmer CLIA: [id number] Cholesterol 113 <200 mg/dL Triglycerides 46 <150 mg/dL HDL Cholesterol 40 >39 mg/dL Cholesterol / HDL Ratio 2.83 0.00-4.99 Ratio Non-HDL Cholesterol 73 <130 mg/dL LDL Cholesterol (Calculation) 64 <130 mg/dL LDL Cholesterol Levels* Less than 100 mg/dL Optimal 100 to 129 mg/dL Near Optimal/ Above Optimal 130 to 159 mg/dL Borderline High 160 to 189 mg/dL High 190 mg/dL and above Very High * Categories as recommended by the 2004 ATPIII guidelines LDL/HDL Ratio 1.6 <3.3 Ratio LDL Cholesterol Patient History Test Date: 11/03/2023 LDL Results: 40 Units: mg/dL % Change: - Test Date: 06/04/2024 LDL Results: 46 Units: mg/dL % Change: +15% Test Date: 11/26/2024 LDL Results: 64 Units: mg/dL % Change: +39% REASON FOR VISIT 6 months Medications Medication SIG (Take, Route, Frequency, Duration) Notes Start Date End Date Status Levothyroxine Sodium 150 MCG 1 tab(s) or ally once a day; Duration: 90 days Active Pantoprazole Sodium 40 MG TAKE ONE TABLE T BY MOUTH ONCE A DAY Active Allopurinol 100 MG 1 tab(s) orally once a day Active Atorvastatin Calcium 80 MG 1 tablet Oral ly Once a day Active Colchicine-Probenecid 0.5-500 MG 1 tab(s) orally once daily Active Prasugrel HCl 10 MG as directed Orally Active Losartan Potassium-HCTZ 50-12.5 MG 1 tab(s) orally once a day Active amLODIPine Besylate 5 MG 1 tablet Orally Once a day Active Feosol Bifera 28 MG 1 tablet Orally Once a day 04/24/2024 Active Sildenafil Citrate 20 MG 1 tab(s) orally as needed; Duration: 30 days Active miSOPROStol 200 MCG 1 tablet Orally Four times a day; Duration: 30 day(s) Active Bismuth/Metronidaz/Tetracycl in 140-125-125 MG 3 capsules after meals and at bedtime Orally Four times a day; Duration: 10 day(s) Active Vital Signs Blood pressure systolic 122 mm Hg 11/27/19 25 Blood pressure diastolic 70 mm Hg 025 Heart Rate 62 /min 11/26/2024 Height 70 in 11/26/2024 Weight 192.6 lbs 11/26/2024 BMI 27.63 kg/m2 11/26/2024 Encounters Encounter Location Date Provider Diagnosis [facility] [address] [facility] [address] [place], [place] [phone] 11/26/2024 Elvin Rasmussen Coronary artery dise ase involving [place] coronary artery of [place] heart without angina pectoris I25.10 ; Pure hypercholesterolemia E78.00 ; Primary hypertension I10 and BMI 27.0-27.9,adult Z68.27 Assessments Encounter Date Diagnosis (ICD Code) Assessment Notes Treatment Notes Treatment Clinical Notes Section Notes 11/26/2024 Coronary artery dise ase involving [place] coronary artery of [place] heart without angina pectoris (ICD-10 - I25.10) 11/26/2024 Pure hypercholesterolemia (ICD-10 - E78.00) 11/26/2024 Primary hypertension (ICD-10 - I10) 11/26/2024 BMI 27.0-27.9,adult (ICD-10 - Z68.27) Plan Of Treatment Medication Medication Name Sig Start Date Stop Date Notes Atorvastatin Calcium 80 MG 1 tablet Orally Once a day Prasugrel HCl 10 MG as directed Orally Losartan Potassium-HCTZ 50-1 2.5 MG 1 tab(s) orally once a day amLODIPine Besylate 5 MG 1 tablet Orally Once a day Next Appt Details Follow Up: 6 Months, Reason: Provider Name:Elvin Mckinley , 05/29/2025 09:00:00 AM, [address] [facility], [address] [place] [address], [phone], Progress Notes * AIDEN MARIEDOB:1955 (69 yo M)Acc No.[id number]:11/26/2024 Progress Notes Patient: AIDEN SON Provider: Sarita Rasmussen M.D. :1955 A ge:69 Y S ex:Male Date:11/26/2024 Address:[address] [place], [place] [phone] Subjective: * Chief Complaints: * 1 . 6 months. * HPI: C ardiology: 69 year old male presents with c/o Blood Pressure Elevated P t here for 6 mo f/u on hypertension. Pt states he is doing well and does not have any concerns.? c/o Hyperlipidemia P t is fasting today. E ndocrinology: c/o Hypothyroidism P t here to f/u. * ROS: D ERMATOLOGY: no R blake. n o H lucita. G ASTROENTEROLOGY: no N ausea. n o V omiting. U ROLOGY: no D ifficulty urinating. n o B lood in urine. * Medical History: C oronary Artery Disease, Arthritis, Gout, Hypothyroidism, Hyperlipidemia, Allergic Rhinitis, Erectile dysfunction, peptic ulcer disease, GI Bleed 03/2024, treated at [facility], H Pylori positive, 2023, Chronic back pain. * Surgical History: t hyroidectomy - [facility] 1984, Percutaneous coronary intervention with 1 stent placed, [place] in [place] 2004, Percutaneous coronary intervention 4 stents placed at [facility] 2022, EGD - treatment of bleeding stomach ulcer, at [facility] 03/2024, Colonoscopy, Dr. Dean 10/28/2024. * Hospitalization/Major Diagno stic Procedure: D enies Past Hospitalization. * Family History: F ather: , diagnosed with Heart Disease. M other: . 2 brother(s) , 1 sister(s) - healthy. 1 daughter(s) - healthy. . 1 brother with diabetes and hypertension. * Social History: C URRENT TOBACCO USE: No . C affeine: yes, frequency:. Alcohol: yes. * Medications: T aking miSOPROStol 200 MCG Tablet 1 tablet Orally Four times a day , Taking Prasugrel HCl 10 MG Tablet as directed Orally , Taking Bismuth/Metronidaz/Tetracyclin 140-125-125 MG Capsule 3 capsules after meals and at bedtime Orally Four times a day , Taking Losartan Potassium-HCTZ 50-12.5 MG Tablet 1 tab(s) orally once a day , Taking Sildenafil Citrate 20 MG Tablet 1 tab(s) orally as needed , Taking amLODIPine Besylate 5 MG Tablet 1 tablet Orally Once a day , Taking Atorvastatin Calcium 80 MG Tablet 1 tablet Orally Once a day , Taking Feosol Bifera 28 MG Tablet 1 tablet Orally Once a day , Taking Colchicine-Probenecid 0.5-500 MG Tablet 1 tab(s) orally once daily , Taking Allopurinol 100 MG Tablet 1 tab(s) orally once a day , Taking Pantoprazole Sodium 40 MG Tablet Delayed Release TAKE ONE TABLET BY MOUTH ONCE A DAY , Taking Levothyroxine Sodium 150 MCG Tablet 1 tab(s) orally once a day , Medication List reviewed and reconciled with the patient * Allergies: N .K.D.A. Objective: * Vitals: W t: 192.6, Temp: 97.9, BP: 122/70, HR: 62, Nurse: kk, Ht: 70, BMI:27.63. * Examination: C ardiology: General Appearance: p leasant, NAD. H eart sounds: R RR, normal S1, S2. L ungs: c lear, no rales or wheezes. E xtremities: n o leg edema. P eripheral pulses: 2 plus bilateral. Assessment: * Assessment: 1. C oronary artery disease involving [place] coronary artery of [place] heart without angina pectoris - I25.10 (Primary) 2 . P ure hypercholesterolemia - E78.00 ?3. P rimary hypertension - I10 4 . B OR 27.0-27.9,adult - Z68.27 ? Plan: * Treatment: 2. P ure hypercholesterolemia Continue Atorvastatin Calcium Tablet, 80 MG, 1 tablet, Orally, Once a day. L AB: P-Comprehensive Metabolic Panel (CMP) (Collection Date & Time - 11/26/2024 09:31 AM) N ormal Value Reference Range A /G Ratio 1.6 1.1-2.5 - * A lbumin 4.6 3.5-5.3 - g/dL * A lkaline Phosphatase 96 40-129 - IU/L * A LT (SGPT) 17 <5-55 - IU/L * A ST (SGOT) 17 <5-46 - IU/L * B ilirubin, Total 1.1 <0.2-1.2 - mg/dL * B UN 10 8-23 - mg/dL * C alcium 9.7 8.6-10.4 - mg/dL * C hloride 101 97-108 - mmol/L * C O2 26 22-32 - mmol/L * C reatinine 0.82 0.70-1.30 - mg/dL * G lucose 94 65-99 - mg/dL * P otassium 3.9 3.5-5.3 - mmol/L * S odium 139 135-145 - mmol/L * P rotein 7.5 6.0-8.3 - g/dL * e GFR by Creatinine 96 >59 - mL/min/1.73m2 * Jeanie Ye 11/27/2024 10:27: 44 AM EDT > Pt informed ?LAB: P-Lipid Panel (Collection Date & Time - 11/26/2024 09:31 AM)?Normal* Value Reference Range C holesterol / HDL Ratio 2.83 0.00-4.99 - Ratio * C holesterol 113 <200 - mg/dL * H DL Cholesterol 40 >39 - mg/dL * L DL Cholesterol (Calculation) 64 <130 - mg/d L * L DL/HDL Ratio 1.6 <3.3 - Ratio * N on-HDL Cholesterol 73 <130 - mg/dL * T riglycerides 46 <150 - mg/dL * Jeanie Ye 11/27/2024 10:27: 44 AM EDT > Pt informed 3.?Primary hypertension? Continue Losartan Potassium-HCTZ Tablet, 50-12.5 MG, 1 tab(s), orally, once a day;?Continue amLODIPine Besylate Tablet, 5 MG, 1 tablet, Orally, Once a day.?LAB: P-Comprehensive Metabolic Panel (CMP) (Collection Date & Time - 11/26/2024 09:31 AM)?Normal* Value Reference Range A /G Ratio 1.6 1.1-2.5 - * A lbumin 4.6 3.5-5.3 - g/dL * A lkaline Phosphatase 96 40-129 - IU/L * A LT (SGPT) 17 <5-55 - IU/L * A ST (SGOT) 17 <5-46 - IU/L * B ilirubin, Total 1.1 <0.2-1.2 - mg/dL * B UN 10 8-23 - mg/dL * C alcium 9.7 8.6-10.4 - mg/dL * C hloride 101 97-108 - mmol/L * C O2 26 22-32 - mmol/L * C reatinine 0.82 0.70-1.30 - mg/dL * G lucose 94 65-99 - mg/dL * P otassium 3.9 3.5-5.3 - mmol/L * S odium 139 135-145 - mmol/L * P rotein 7.5 6.0-8.3 - g/dL * e GFR by Creatinine 96 >59 - mL/min/1.73m2 * Jeanie Ye 11/27/2024 10:27: 44 AM EDT > Pt informed * Procedure Codes: G 2211 Complex e/m visit add on, 1036F TOBACCO NON-USER, G8950 PREHTN/HTN BP DOC INDCD F/U DOC, G8752 MOST RECENT SYSTOLIC BP < 140MM HG, G8754 MOST RECENT DIASTOLIC BP < 90MM HG, G8420 BMI<30 AND >=22 CALC & DOCU, 3017F COLORECTAL CA SCREEN DOC REV * Preventive Medicine: Screening / Special Tests: C olonoscopy , polyps, hemorrhoids, repeat 5-10 years. * Follow Up: 6 Months * Images: Billing Information: * Visit Code: 47609 Office Visit, Est Pt., Level 4. * Procedure Codes: G2211 Complex e/m visit add on. 1036F TOBACCO NON-USER. G8950 PREHTN/HTN BP DOC INDCD F/U DOC. G8752 MOST RECENT SYSTOLIC BP < 140MM HG. G8754 MOST RECENT DIASTOLIC BP < 90MM HG. G8420 BMI<30 AND >=22 CALC & DOCU. 3017F COLORECTAL CA SCREEN DOC REV. * Electronic signature of Crissy Rasmussen MD on 02/11/2025 at 02:05 PM EDT Sign off status: Pending * Provider: Sarita Rasmussen M.D. Date: 0 11/26/2024 Generated for Kelly denise/Barbara/Kurtisitting on: 0 02/11/2025 02:05 PM EDT History and Physical Notes * HPI (History of Present Illness) Category Sub-Category Detail Notes Category Not es Endocrinology Hypothyroidism Pt here to f/u Cardiology Blood Pressure Elevated Pt here for 6 mo f/u on hypertension. Pt states he is doing well and does not have any concerns Hyperlipidemia Pt is fasting today Examination Category Sub-Category Detail Notes Category Not es Cardiology Lungs: clear, no rales or wheezes Heart sounds: RRR, normal S1, S2 Extremities: no leg edema Peripheral pulses: 2 plus bilateral General Appearance: pleasant, NAD
--- NOTE | 2025-02-11 14:05 | CT_ITS ---
FINAL REPORT TECHNIQUE: Thin section axial images were obtained through the lumbar spine without contrast. Sagittal and coronal reconstruction images were obtained from the axial data. Exam was performed using dose reduction techniques. CLINICAL HISTORY: LBP COMPARISON: None FINDINGS: There is a very mild superior endplate compression deformity at L1, likely chronic. Remaining vertebral body heights are preserved. There is no acute fracture. Multilevel degenerative disc disease is present. Annular disc bulges are seen at multiple levels. There is at least mild canal stenosis at L2-3 and L3-4 with moderate stenosis at L4-5. No acute paraspinal abnormality. IMPRESSION: No acute osseous abnormality of the lumbar spine. Degenerative disc disease. Consider MRI on a nonemergent basis. Reviewed, Interpreted and Dictated by Fatimah Jackson MD Transcribed by Dinora Wong Authenticated and [facility]
--- OUTSIDE RECORDS SUMMARY | 2025-02-11 14:05 | XMS_ITS | Patient Health Record ---
[facility] [address] [facility] [address] [place] [id number] Care Team Providers Care Building Architectural Designer Name Role Phone Elvin Rasmussen Primary Care Provider [phone] Allergies No Known Allergies Results Component Value Reference Range Notes colonoscopy Reviewed date:12/03/2024 10:41:20 AM Interpretation:polyps, hemorrhoids, repeat 5-10 yrs Performing Lab: Notes/Report: polyps, hemorrhoids, repeat 5-10 yrs result: polyps, hemorrhoids repeat study: 5-10 yrs P-Lipid Panel Reviewed date:11/27/2024 10:27:54 AM Interpretation:Normal Performing Lab: Notes/Report: Test performed by [facility] [address] [place] [address] , [address], [place] [address] Jimmy Osorio MD, Meatcutter CLIA: [id number] Cholesterol 113 <200 mg/dL Triglycerides 46 <150 [...] Interpretation:Normal Performing Lab: Notes/Report: Test performed by [facility] [address] [facility] [address], [place] [address] Jimmy Osorio MD, Meatcutter CLIA: [id number] Sodium 139 135-145 mmol/L Potassium 3.9 3.5-5.3 [...] 1.1 <0.2-1.2 mg/dL A/G Ratio 1.6 1.1-2.5 Urinalysis - Inhouse Reviewed date:07/12/2024 04:24:16 PM Interpretation: Performing Lab: Notes/Report: Color/Clarity yellow/clear Leuk Neg Nitrite Neg Urobili 3.2 Protein Neg pH 6.0 Blood Neg Sp. Gr. 1.015 Ketone Neg Bili Neg Gluc Neg M-Hemoglobin and Hematocrit Reviewed date:04/17/2024 08:26:56 AM [...] AGRATIO 1.7 1.1-1.8 ALP 36 38-126 U/L CBC Venipuncture (in house) Reviewed date:06/05/2024 12:29:05 [...] Interpretation:satisfactory Performing Lab: Notes/Report: Test performed by [facility] [address] [place] [address] , [address], [place] [address] Jimmy Osorio MD, Meatcutter CLIA: [id number] Sodium 142 135-145 mmol/L Potassium 3.8 3.5-5.3 [...] Interpretation:Normal Performing Lab: Notes/Report: Test performed by [facility] [address] [place] [address] , [address], [place] [address] Jimmy Osorio MD, Meatcutter CLIA: [id number] Thyroxine Free (free T4) 1.22 0.86-1.76 ng/dL P-Lipid Panel Reviewed date:06/05/2024 12:29:05 PM Interpretation:Normal Performing Lab: Notes/Report: Test performed by [facility] [address] [place] [address] , [address], [place] [address] Jimmy Osorio MD, Meatcutter CLIA: [id number] Cholesterol 99 <200 mg/dL Triglycerides 44 <150 [...] Interpretation:Normal Performing Lab: Notes/Report: Test performed by [facility] [address] [facility] , [facility] [address] Jimmy Osorio MD, Meatcutter CLIA: [id number] TSH 3.26 0.43-5.25 mU/L P-Microalbumin/Creatinine, R andom Urine Sample Reviewed date:06/05/2024 12:29:05 PM Interpretation:Normal Performing Lab: Notes/Report: Test performed by [facility] [address] , [address], [place] [address] Jimmy Osorio MD, Meatcutter CLIA: [id number] Albumin/Creatinine Ratio, Urine <6.0 0-30 ug/mg Microalbumin, Urine, Random <0.3 Creatinine, Urine 49.2 P-Uric Acid Reviewed date:06/05/2024 12:29:05 PM Interpretation:Normal Performing Lab: Notes/Report: Test performed by [facility] [address] , [address], [place] [address] Jimmy Osorio MD, Meatcutter CLIA: [id number] Uric Acid 4.5 3.4-8.0 mg/dL X ray : Spine, lumbosacral Reviewed date:07/31/2024 01:03:32 PM Interpretation:mild degenerative changes Performing Lab: Notes/Report: mild degenerative changes CBC Fingerstick (in house) Reviewed date:04/24/2024 12:51:27 [...] 2024 08:28:02 AM > faxed to [facility] Pain Management, Araceli Garza 11/18/2024 11:49:49 AM [...] W/U Status Risk Notes Problem Chronic pain (53944780) Other chronic pain (G89.29) Active confirmed Problem Atherosclerotic hear t disease of ewiiaapaayp coronary artery without angina pectoris (401203241876975) Coronary artery disease involving ewiiaapaayp coronary artery of ewiiaapaayp heart without angina pectoris (I25.10) Active confirmed Problem Anemia (977866102) Anemia, unspe cified type (D64.9) Active confirmed Problem Hyperlipidaemia (19374270) Hyperlipidemia, unspecified hyperlipidemia type (E78.5) Active confirmed Problem Postoperative hypothyroidism (24010401) Postoperative hypothyroidism (E89.0) Active confirmed Problem Chronic gastric ulce r with hemorrhage but without obstruction (49257025) Gastrointestinal hemorrhage associated with gastric ulcer (K25.4) Active confirmed Problem Anemia due to chroni c blood loss (913077749) Anemia due to GI blood loss (D50.0) Active confirmed Problem Atherosclerotic hear t disease of ewiiaapaayp coronary artery without angina pectoris (708017049220991) Atherosclerosis of ewiiaapaayp coronary artery without angina pectoris, unspecified whether ewiiaapaayp or transplanted heart (I25.10) Active confirmed Problem Pure hypercholesterolemia (644849107) Pure hypercholesterolemia (E78.00) Active confirmed Problem Gastric ulcer withou t hemorrhage, without perforation AND without obstruction (05907008) Gastric ulcer, unspecified chronicity, unspecified whether gastric ulcer hemorrhage or perforation present (K25.9) Active confirmed Problem Peptic ulcer disease (42339750) PUD (peptic ulcer disease) (K27.9) Active confirmed Problem Chronic gouty arthritis (29845107) Chronic gout of multiple sites, unspecified cause (M1A.09X0) Active confirmed Problem Allergic rhinitis (19544808) Allergic rhinitis, unspecified seasonality, unspecified trigger (J30.9) Active confirmed Problem Primary hypertension (96071673) Primary hypertension (I10) Active confirmed Vital Signs Heart Rate 62 /min 11/26/2024 Blood pressure diastolic 70 mm Hg 11/26/2024 Height 70 in 11/26/2024 Blood pressure systolic 122 mm Hg 11/26/2024 Weight 192.6 lbs 11/26/2024 BMI 27.63 kg/m2 11/26/2024 Encounters Encounter Location Date Provider Diagnosis [facility] [address] [facility] [address] [place] [id number] 04/24/2024 Elvin Tiffin Gastrointestinal hem orrhage associated with gastric ulcer K25.4 ; PUD (peptic ulcer disease) K27.9 ; Anemia due to GI blood loss D50.0 and H. pylori infection A04.8 [facility] [address] [place] [id number] 06/04/2024 Elvin Tiffin Primary hypertension I10 ; Anemia due to GI blood loss D50.0 ; Pure hypercholesterolemia E78.00 ; Postoperative hypothyroidism E89.0 ; Chronic gout of multiple sites, unspecified cause M1A.09X0 and Encounter for immunization Z23 [facility] [address] [place] [id number] 07/12/2024 Elvin Tiffin Encounter for Depart ment of Transportation (DOT) examination for [place] license Z02.4 [facility] [address] [facility] [address] [place] [id number] 07/30/2024 Elvin Tiffin Other chronic pain G 89.29 and Low back pain, unspecified M54.50 [facility] [address] [place] [id number] 11/26/2024 Elvin Tiffin Coronary artery dise ase involving ewiiaapaayp coronary artery of ewiiaapaayp heart without angina pectoris I25.10 ; Pure hypercholesterolemia E78.00 ; Primary hypertension I10 and BMI 27.0-27.9,adult Z68.27 [facility] [address] [facility] [address] [place], [place] [id number] 04/22/2024 Elvin Tiffin [facility] [address] [place] [id number] 07/31/2024 Elvin Tiffin [facility] [address] [place] [id number] 10/11/2024 Elvin Tiffin Other chronic pain G 89.29 ; Low back pain, unspecified M54.50 and Degeneration of intervertebral disc of lumbar region with discogenic back pain M51.360 [facility] [address] [facility] [address] [place] [id number] 10/29/2024 Elvin Tiffin Low back pain, unspe cified M54.50 ; [...] M51.360) 11/26/2024 Coronary artery dise ase involving ewiiaapaayp coronary artery of ewiiaapaayp heart without angina pectoris (ICD-10 - I25.10) [...] [address], [address], [place], [place], [id number], Insurance Providers Payer Name Payer Address Payer Phone Subscriber Number Group Number Insured Name Patient Relationship to Insured Coverage Start Date Coverage End Date [employer] (MEDICAR E) [address] [address] [place] [phone] [id number] TIERRA AIDEN Self - patient is the insured Medical (General) History Medical History History ICD Code Coronary Artery Disease Arthritis Gout Hypothyroidism Hyperlipidemia Allergic Rhinitis Erectile dysfunction peptic ulcer disease, GI Bleed 03/2024, treated at [facility] H Pylori positive, 2023 chronic back pain Surgical History Surgery Date(Month/Year) thyroidectomy - [facility] 1985 Percutaneous coronary interv ention with 1 stent placed, [facility] [place] 2004 Percutaneous coronary intervention 4 renuka nts placed at [facility] 2022 EGD - treatment of bleeding stomach vu mireles at [facility] 03/2024 Colonoscopy, Dr. Dean 10/28/2024
--- OUTSIDE RECORDS SUMMARY | 2025-02-11 14:05 | XMS_ITS | Clinical Summary ---
Author Organization [facility] Address [address] [place] [address] Care Team Providers Care Cello Teacher Name Role Phone Elvin Rasmussen MD Primary Care Provider + [phone] Social History Tobacco Use Types Packs/Day Years [...] 11/09/2007 UKY-Zoster Vaccines (1 of 2) 11/09/2007 [id number] Vaccine ( season) 2024 06/16/2021, 11/04/2020, 10/07/2020 [...] patient's age to complete this topic Insurance [facility] MEDIC[facility] Care Teams Cello Teacher Relationship Specialty Start Date End Date Elvin Rasmussen MD [address] [facility] [address] [place] [phone] PCP - General 02/14/23
== END 2025-02-11 23:59 | disposition home or self-care (01) ==
LOC: RAD 14:02
PROVIDERS: PCP Family Medicine; Visit Provider Nurse Practitioner Family
DX: M51.360 Other intervertebral disc degeneration, lumbar region with discogenic back pain only (principal); M48.061 Spinal stenosis, lumbar region without neurogenic claudication
CPT/HCPCS: 72131